=== PATIENT | male | born 1960 | race Caucasian/White ===

== ENCOUNTER 2023-05-27 18:22 | Inpatient (IN) | payer OTHER, MEDICAID, SELFPAY ==
[2023-05-27 18:30] VITALS: BP 117/74; PULSE 120; RESP 20; TEMP 37.4; O2SAT 96; BMI 22.2
--- NOTE | 2023-05-27 19:07 | ED.GENADULT ---
HPI - General Adult General Chief complaint: Abdominal Pain Stated complaint: drinking water cant keep down/ stomach pain/vomitt Time Seen by Provider: 05/27/23 19:07 Source: patient Mode of arrival: Ambulatory History of Present Illness HPI narrative: 62-year-old gentleman with a history of alcohol use disorder who presents complaining of right lower quadrant pain that has been worsening over the last number of days with persistent vomiting to the point he is unable to keep water down. He is significantly intoxicated so clearly alcohol has been able to stay down. His roommate called his son and his son brings him in for further evaluation. Patient is intoxicated/confused enough that he has little additional history to offer beyond the complaint of right lower quadrant pain. He reports that he has vomited he does not complain of diarrhea he denies fevers and chest pain. Related Data Allergies Allergy/AdvReac Type Severity Reaction Status Date / Time No Known Drug Allergies Allergy Verified 05/27/23 18:30 Review of Systems Review of Systems Narrative: Pertinent positive and negative findings as per HPI Patient History Medical History (Updated 05/27/23 @ 23:45 by Kassi Swenson MD) Alcohol use disorder Social History Smoking Status: Current every day smoker Smoking Status: Current every day smoker tobacco type: cigarettes alcohol intake frequency: 3 or more drinks per day Substance Use Type: does not use Exam Initial Vital Signs Initial Vital Signs: Vital Signs Temperature 99.4 F 05/27/23 18:30 Pulse Rate 120 H 05/27/23 18:30 Respiratory Rate 20 05/27/23 18:30 Blood Pressure 117/74 05/27/23 18:30 Pulse Oximetry 96 05/27/23 18:30 Oxygen Delivery Method Room Air 05/27/23 18:30 General: Chronically ill-appearing, disheveled, smells strongly of alcohol minimally cooperative HEENT: Moist mucous membranes Neck: No JVD, supple Respiratory: Lungs are clear to auscultation, no wheezing no rales no rhonchi. Full and symmetrical air movement Cardiac: Tachycardic but otherwise Regular rate and rhythm no murmurs no bruits Abdomen: Soft, despite his complaint of right lower quadrant tenderness there is no reproducible pain with palpation of his abdomen, good bowel tones, no flank pain Skin: Warm and dry, no rashes Neurologic: Grossly neurologically intact with no obvious asymmetries or abnormalities Extremities: No trauma, Psych: Intoxicated Course Orders Ordered: ED Orders 05/27/23 18:41 EKG-12 Lead Stat 05/27/23 19:00 ETOH [Ethanol (ETOH)] Stat 05/27/23 20:10 CT abdomen pelvis w con Stat 05/27/23 22:25 Urine Microscopic Stat Ondansetron HCl (Ondansetron 4 Mg Odt) 4 mg PO NOW PRN PRN Reason: Nausea And Vomiting Ondansetron HCl (Ondansetron 4 Mg/2 Ml Inj) 4 mg IV NOW PRN PRN Reason: Nausea And Vomiting Discontinued Medications Sodium Chloride (Normal Saline 0.9%) 1,000 mls @ 1,000 mls/hr IV BOLUS ONE Stop: 05/27/23 20:08 Last Infusion: 05/27/23 21:48 Dose: 0 mls/hr Documented By: Admin: 05/27/23 20:03 Dose: 1,000 mls/hr Documented By: CHIARA Thiamine HCl 100 mg/ Sodium (Chloride) 101 mls @ 404 mls/hr IV NOW ONE Stop: 05/27/23 20:11 Last Infusion: 05/27/23 21:20 Dose: 0 mls/hr Documented By: Admin: 05/27/23 20:57 Dose: 404 mls/hr Documented By: CHIARA Lorazepam (Lorazepam 2 Mg/Ml Inj) 4 mg IV NOW ONE Stop: 05/27/23 23:13 Last Admin: 05/27/23 23:30 Dose: 4 mg Documented By: RY Ondansetron HCl (Ondansetron 4 Mg/2 Ml Inj) 4 mg IV NOW ONE Stop: 05/27/23 19:10 Last Admin: 05/27/23 20:53 Dose: Not Given Documented By: CHIARA Vital Signs Vital signs: Vital Signs - 8 hr 05/27/23 18:30 05/27/23 20:09 05/27/23 21:41 Temperature 99.4 F 98.2 F Pulse Rate 120 H 101 H 99 H Respiratory Rate 20 20 18 Blood Pressure 117/74 116/69 112/79 Pulse Oximetry 96 97 98 Oxygen Delivery Method Room Air Room Air Room Air Medical Decision Making Lab Data 05/27/23 13:00 05/27/23 13:00 Labs: Lab Results 05/27/23 05/27/23 05/27/23 Range/Units 13:00 13:00 13:00 WBC 4.5 (4.5-11.0) X10^3/uL RBC 3.43 L (4.5-5.9) X10^6/uL Hgb 12.3 L (13.5-17.5) g/dL Hct 35.7 L (41-53) % MCV 104.0 H (80-100) fL MCH 36.0 H (26-34) PG MCHC 34.6 (30-36) % RDW 16.8 H (11.6-14.8) % Plt Count 125 L (150-400) X10^3/uL Neut % (Auto) 84.9 H (50-75) % Lymph % (Auto) 7.9 L (25-40) % [place] % (Auto) 6.6 (3-14) % Eos % (Auto) 0.1 L (2-4) % Baso % (Auto) 0.5 (0-2) % Neut # (Auto) 3800 (0930-8202) /uL Lymph # (Auto) 400 L (9000-6556) /uL [place] # (Auto) 300 (0-900) /uL Eos # (Auto) 0 (0-450) /uL Baso # (Auto) 0 (0-100) /uL Sodium 137 (137-145) mmol/L Potassium 2.9 L (3.4-5.1) mmol/L Chloride 92 L (98-107) mmol/L Carbon Dioxide 31 (22-32) mmol/L BUN 6 L (9-20) mg/dL Creatinine 0.58 L (0.66-1.25) mg/dL Estimated GFR > 60 (>60) mL/min BUN/Creatinine Ratio 10.3 (6-22) Glucose 143 H (80-110) mg/dL Calcium 8.9 (8.4-10.2) mg/dL Total Bilirubin 0.9 (0.2-1.3) mg/dL AST 55 (17-59) IU/L ALT 18 (<50) IU/L Alkaline Phosphatase 95 (38-126) U/L Troponin I < 0.012 (0.01-0.034) ng/mL Total Protein 7.8 (6.3-8.2) g/dL Albumin 3.8 (3.5-5.0) g/dL Globulin 4.0 (1.7-4.1) g/dL Albumin/Globulin Ratio 1.0 (1.0-2.8) Lipase 310 H (23-300) U/L Urine RBC (0-5/HPF) Urine WBC (0-5/HPF) Ur Squamous Epith Cells (0-5/HPF) Urine Bacteria (None) Hyaline Casts (None) Urine Mucus (Negative) Ur Culture Indicated? Ethyl Alcohol ( - 10) mg/dL 05/27/23 05/27/23 Range/Units 19:00 22:25 WBC (4.5-11.0) X10^3/uL RBC (4.5-5.9) X10^6/uL Hgb (13.5-17.5) g/dL Hct (41-53) % MCV (80-100) fL MCH (26-34) PG MCHC (30-36) % RDW (11.6-14.8) % Plt Count (150-400) X10^3/uL Neut % (Auto) (50-75) % Lymph % (Auto) (25-40) % [place] % (Auto) (3-14) % Eos % (Auto) (2-4) % Baso % (Auto) (0-2) % Neut # (Auto) (3638-5843) /uL Lymph # (Auto) (5624-1235) /uL [place] # (Auto) (0-900) /uL Eos # (Auto) (0-450) /uL Baso # (Auto) (0-100) /uL Sodium (137-145) mmol/L Potassium (3.4-5.1) mmol/L Chloride (98-107) mmol/L Carbon Dioxide (22-32) mmol/L BUN (9-20) mg/dL Creatinine (0.66-1.25) mg/dL Estimated GFR (>60) mL/min BUN/Creatinine Ratio (6-22) Glucose (80-110) mg/dL Calcium (8.4-10.2) mg/dL Total Bilirubin (0.2-1.3) mg/dL AST (17-59) IU/L ALT (<50) IU/L Alkaline Phosphatase (38-126) U/L Troponin I (0.01-0.034) ng/mL Total Protein (6.3-8.2) g/dL Albumin (3.5-5.0) g/dL Globulin (1.7-4.1) g/dL Albumin/Globulin Ratio (1.0-2.8) Lipase (23-300) U/L Urine RBC None seen (0-5/HPF) Urine WBC None seen (0-5/HPF) Ur Squamous Epith Cells 0-1 /hpf (0-5/HPF) Urine Bacteria None seen (None) Hyaline Casts 0-1/lpf (None) Urine Mucus 1+ H (Negative) Ur Culture Indicated? Cult not indicated Ethyl Alcohol 177 H ( - 10) mg/dL Urine Dip Bedside Urine Glucose Negative Bedside Urine Bilirubin - Negative Bedside Urine Ketone - Negative Urine Specific [place] 1.01 Bedside Urine Occult Blood - Negative Bedside Urine pH 6 Bedside Urine Protein +/- 15 Bedside Urine Urobilinogen +/- 1mg Bedside Urine Nitrite - Negative Bedside Urine Leukocytes - Negative Esterase Point of care testing: Urine Dip Bedside Urine Glucose Negative Bedside Urine Bilirubin - Negative Bedside Urine Ketone - Negative Urine Specific Jackson 1.01 Bedside Urine Occult Blood - Negative Bedside Urine pH 6 Bedside Urine Protein +/- 15 Bedside Urine Urobilinogen +/- 1mg Bedside Urine Nitrite - Negative Bedside Urine Leukocytes - Negative Esterase MDM Narrative Medical decision making narrative: CC: 2-4 days of right lower quadrant abdominal pain in the setting of chronic alcohol use disorder Complicating co-morbidities: History is difficult to obtain Data collected from: patient, son Social determinants of health that may influence the patients condition: Alcohol use disorder, minimal interaction with the medical system Medical records reviewed: Orthopedic and dermatologic notes from [facility] reviewed Differential considered: Appendicitis, diverticulitis, gallbladder disease, kidney stone, pyelonephritis, constipation, ascites, liver failure Exam documented above, pertinent findings include: Mild tachycardia, lungs are clear no significant tenderness to palpation of his abdomen but he does smell strongly of alcohol Lab Test results independently reviewed as above. Pertinent findings: CBC shows normal white blood cell count mild anemia at 12.3 and 35.7 with an elevated MCV at 104 platelets are slightly low at 125 Chemistries are notable for a potassium low at 2.9. LFTs are unremarkable Lipase is minimally elevated at 310 Troponin is undetectable Independently reviewed EKG sinus rhythm at a rate of 99, nonspecific ST-T wave changes, nonspecific fascicular block Imaging studies independently reviewed: CT scan of the abdomen demonstrates mild segmental wall thickening of the terminal ileum and the proximal ascending colon and it appears the appendix has already been removed. Most likely representing infectious or inflammatory enterocolitis. Treatments: Fluids, IV thiamine, nausea medicine and parenteral narcotics were given. IV potassium replacement, ativan for withdrawal symptoms Re-evaluations:11pm patient is visibly worse continues to actively vomit/dry heave. Clear alcohol withdrawal. At this time I believe hospitalization for his enterocolitis and acute alcohol withdrawal is going to be most appropriate. Patient is his son both agree to this. Will check his CIWA score and begin Ativan treatment Discussion: 62-year-old gentleman with alcohol use disorder increasing abdominal pain for the last 4 days has not been able to drink much water and likely has not been able to drink enough alcohol to avoid significant withdrawal symptoms either. Despite initial alcohol level at 177 he is showing significant withdrawal signs and continued vomiting. I believe hospitalization to help with hydration and pain control from his enterocolitis and treatment of his withdrawal symptoms as well as hypokalemia will be helpful. When asked if he is interested in stopping drinking at this time he states that he is not but he is interested in staying in the hospital until he is well left actually go home and eat and drink. Will contact our hospitalist service for admission. Case reviewed with Dr Mills. Discharge Plan Departure Patient Disposition: Admitted as Observation Clinical Impression: Enterocolitis, Hypokalemia Nausea & vomiting Qualifiers: Vomiting type: unspecified Qualified Code(s): R11.2 - Nausea with vomiting, unspecified Alcohol withdrawal Qualifiers: Complication of substance-induced condition: uncomplicated Qualified Code(s): F10.930 - Alcohol use, unspecified with withdrawal, uncomplicated Admit Date/Time: 05/27/23 23:45 Admit Provider: Rylan Mills
[2023-05-27 19:44] LABS: Add Manual Diff / Slide Review NO; Basophils Absolute Auto 0 /uL (0-100); Basophils Percent Auto 0.5 % (0-2); Eosinophils Absolute Auto 0 /uL (0-450); Eosinophils Percent Auto 0.1 % (2-4); Hematocrit 35.7 % (41-53); Hemoglobin 12.3 g/dL (13.5-17.5); Lymphocytes Absolute Auto 400 /uL (1100-4500); Lymphocytes Percent Auto 7.9 % (25-40); Mean Corpuscular HGB Conc 34.6 % (30-36); Monocytes Absolute Auto 300 /uL (0-900); Monocytes Percent Auto 6.6 % (3-14); Neutrophils Absolute Auto 3800 /uL (1500-7000); Neutrophils Percent Auto 84.9 % (50-75); Platelet Count 125 X10^3/uL (150-400); Red Blood Cell Count 3.43 X10^6/uL (4.5-5.9); Red Cell Distribution Width 16.8 % (11.6-14.8); White Blood Cell Count 4.5 X10^3/uL (4.5-11.0)
[2023-05-27 19:53] LABS: Alanine Aminotransferase 18 IU/L (<50); Albumin 3.8 g/dL (3.5-5.0); Alkaline Phosphatase 95 U/L (38-126); Aspartate Aminotransferase 55 IU/L (17-59); BUN Creatinine Ratio 10.3 (6-22); Bilirubin Total 0.9 mg/dL (0.2-1.3); Blood Urea Nitrogen 6 mg/dL (9-20); Calcium 8.9 mg/dL (8.4-10.2); Carbon Dioxide 31 mmol/L (22-32); Chloride 92 mmol/L (98-107); Estimated Glomerular Filt Rate > 60 mL/min (>60); Glucose 143 mg/dL (80-110); HEMOLYSIS < 15 (0-50); Lipase 310 U/L (23-300); Potassium 2.9 mmol/L (3.4-5.1); Sodium 137 mmol/L (137-145); Total Protein 7.8 g/dL (6.3-8.2)
[2023-05-27] MEDS: SODIUM CHLORIDE 0.9% 1,000 ML 1000 ML IV (20:03)
[2023-05-27 20:05] LABS: Troponin I < 0.012 ng/mL (0.01-0.034)
[2023-05-27 20:09] VITALS: BP 116/69; PULSE 101; RESP 20; TEMP 36.8; O2SAT 97
--- NOTE | 2023-05-27 20:10 | DI.CT.S_ITS ---
PROCEDURE: CT ABDOMEN PELVIS W CON INDICATIONS: RLQ abdominal pain TECHNIQUE: After the administration of IV contrast, axial sections were acquired from the lung bases to the pubic symphysis. Coronal and sagittal reformats were performed. For radiation dose reduction, the following was used: automated exposure control, adjustment of mA and/or kV according to patient size. COMPARISON: None. FINDINGS: Image quality: Excellent. Lung bases: There is mild dependent atelectasis. Heart: Heart is normal in size. There is a small hiatal hernia. ABDOMEN: Liver: There is diffuse hypoattenuation of the liver consistent with fatty infiltration. Gallbladder: Within normal limits without calcified gallstones. Biliary ducts: No biliary ductal dilatation. Pancreas: Unremarkable. Spleen: Normal in size. Adrenal Glands: No adrenal nodules. Kidneys and Ureters: No hydronephrosis. Stomach and Bowel: There is mild segmental wall thickening of the terminal ileum and the proximal ascending colon. The appendix is not discretely visualized and is likely surgically absent. Peritoneum: No abnormal intraperitoneal fluid. No free air. Ventral Wall: No hernia. Abdominal Nodes: No retroperitoneal or mesenteric adenopathy by size criteria. Vessels: Aorta and inferior vena cava are normal in size. PELVIS: Pelvic Organs: Unremarkable. Bladder: Unremarkable. Pelvic Nodes: No enlarged lymph nodes. Miscellaneous: No inguinal hernias are seen. Bones: Visualized osseous structures demonstrate no suspicious focal lesions. IMPRESSION: 1. Mild segmental wall thickening of the terminal ileum and the proximal ascending colon. The findings likely represent an infectious or inflammatory enterocolitis. 2. Hepatic steatosis. Dictated by: Andre Adrian M.D. on 05/27/2023 at 22:10 Approved by: Andre Adrian M.D. on 05/27/2023 at 22:14
[2023-05-27 20:41] LABS: Ethanol (ETOH) 177 mg/dL
[2023-05-27] MEDS: THIAMINE 100 MG in SODIUM CHLORIDE 0.9% 100 ML 404 MG IV (20:57)
[2023-05-27 21:41] VITALS: BP 112/79; PULSE 99; RESP 18; O2SAT 98
--- NOTE | 2023-05-27 22:33 | PC.NURSE ---
Pt appears intoxicated, denies any pain at this time.
[2023-05-27 23:02] LABS: Bacteria Urine None Seen; Hyaline Casts Urine 0-1/LPF; Mucus Urine 1+ (Negative); RBC Urine None Seen (0-5/HPF); Squamous Epithelial Cell Urine 0-1 /HPF (0-5/HPF); WBC Urine None Seen (0-5/HPF)
[2023-05-27 23:03] LABS: Culture Indicated Urine Cult Not Indicated
[2023-05-27] MEDS: LORazepam 2 MG/ML INJ 4 MG IV (23:30)
[2023-05-27 23:36] VITALS: BP 103/65; PULSE 105; RESP 30; O2SAT 92
[2023-05-27 23:56] VITALS: BMI 22.2
--- NOTE | 2023-05-27 23:57 | P.HP_ITS ---
History of Present Illness History of Present Illness Date Patient Seen: 05/28/23 Time Patient Seen: 01:00 Chief complaint: drinking water cant keep down/ stomach pain/vomitt Narrative: 62 y/o M presented to the ED with abd pain and n/v. no blood reported. started a few days ago mostly lower abd. denies diarrhea. denies cp or sob or cough or fever/chills. pt drinks daily and heavily and says he is not ready to stop drinking but seems needs help since he is having pain and n/v and some withdrawal symptoms. abs CT showed possible distal enteritis. [facility] Medical History (Updated 05/27/23 @ 23:45 by Kassi Swenson MD) Alcohol use disorder Social History Smoking Status: Current every day smoker Meds Home Medications and Allergies Allergies Allergy/AdvReac Type Severity Reaction Status Date / Time No Known Drug Allergies Allergy Verified 05/27/23 18:30 Review of Systems Review of Systems Narrative: all systems reviwed. negative except what was mentioned in hpi Exam Vital Signs (past 8 hours): - 05/27/23 18:30 05/27/23 20:09 05/27/23 21:41 Temperature 99.4 F 98.2 F Pulse Rate 120 H 101 H 99 H Respiratory Rate 20 20 18 Blood Pressure 117/74 116/69 112/79 Pulse Oximetry 96 97 98 Oxygen Delivery Method Room Air Room Air Room Air Oxygen Flow Rate 05/27/23 23:36 Temperature Pulse Rate 105 H Respiratory Rate 30 H Blood Pressure 103/65 Pulse Oximetry 92 Oxygen Delivery Method Nasal Cannula Oxygen Flow Rate 2 Oxygen Delivery Method Nasal Cannula Oxygen Flow Rate 2 Const Other: IN SOME distress due to pain and n/v and withdrawal last ciwa 11 Eyes General: appearance normal, both eyes and all related structures Resp Auscultation: clear to auscultation bilaterally Cardio Rate: regular rate Rhythm: regular rhythm GI Other: general tenderness with no rebound Neuro Other: alert and oriented times 3 , some tremors Objective Labs 05/27/23 13:00 05/27/23 13:00 Labs: Laboratory Results - last 24 hr 05/27/23 05/27/23 05/27/23 13:00 13:00 13:00 WBC 4.5 RBC 3.43 L Hgb 12.3 L Hct 35.7 L MCV 104.0 H MCH 36.0 H MCHC 34.6 RDW 16.8 H Plt Count 125 L Neut % (Auto) 84.9 H Lymph % (Auto) 7.9 L [place] % (Auto) 6.6 Eos % (Auto) 0.1 L Baso % (Auto) 0.5 Neut # (Auto) 3800 Lymph # (Auto) 400 L [place] # (Auto) 300 Eos # (Auto) 0 Baso # (Auto) 0 Sodium 137 Potassium 2.9 L Chloride 92 L Carbon Dioxide 31 BUN 6 L Creatinine 0.58 L Estimated GFR > 60 BUN/Creatinine Ratio 10.3 Glucose 143 H Calcium 8.9 Total Bilirubin 0.9 AST 55 ALT 18 Alkaline Phosphatase 95 Troponin I < 0.012 Total Protein 7.8 Albumin 3.8 Globulin 4.0 Albumin/Globulin Ratio 1.0 Lipase 310 H Urine RBC Urine WBC Ur Squamous Epith Cells Urine Bacteria Hyaline Casts Urine Mucus Ur Culture Indicated? Ethyl Alcohol 05/27/23 05/27/23 19:00 22:25 WBC RBC Hgb Hct MCV MCH MCHC RDW Plt Count Neut % (Auto) Lymph % (Auto) [place] % (Auto) Eos % (Auto) Baso % (Auto) Neut # (Auto) Lymph # (Auto) [place] # (Auto) Eos # (Auto) Baso # (Auto) Sodium Potassium Chloride Carbon Dioxide BUN Creatinine Estimated GFR BUN/Creatinine Ratio Glucose Calcium Total Bilirubin AST ALT Alkaline Phosphatase Troponin I Total Protein Albumin Globulin Albumin/Globulin Ratio Lipase Urine RBC None seen Urine WBC None seen Ur Squamous Epith Cells 0-1 /hpf Urine Bacteria None seen Hyaline Casts 0-1/lpf Urine Mucus 1+ H Ur Culture Indicated? Cult not indicated Ethyl Alcohol 177 H Assessment & Plan Assessment & Plan narrative: 62 y/o M # abd pain and n/v: probably due to alcohol use and withdrawal, less probability pancreatitis or enteritis: morphine and zofran prn, ivf, npo, zosyn, # alcohol withdrawal: mvi, thiamine and folate, Valium, Ativan prn, monitor closely, check mag, pt counseled but wants to continue # hypokalemia : replace and monitor, telemetry # tobacco use disorder: pt counseled. nicotine replacement prn
[2023-05-28] VITALS (49 sets, daily range): BP systolic 98–129; BP diastolic 56–80; PULSE 48–116; RESP 15–38; TEMP 36.5–38.4; O2SAT 91–98
[2023-05-28] MEDS: POTASSIUM CHLORIDE IN WATER 10 MEQ/100 ML PIGGYBACK 100 MEQ IV ×10 (00:50→16:48)
[2023-05-28] MEDS: SODIUM CHLORIDE 0.9% 1,000 ML 150 ML IV (00:51)
[2023-05-28] MEDS: PIPERACILLIN/TAZO 3.375 GM in SODIUM CHLORIDE 0.9% 100 ML IV ×2 (01:45→09:01)
[2023-05-28 04:14] LABS: MRSA (Nasal) PCR Not Detected (Not Detect)
[2023-05-28 05:29] LABS: Add Manual Diff / Slide Review NO; Basophils Absolute Auto 0 /uL (0-100); Basophils Percent Auto 0.5 % (0-2); Eosinophils Absolute Auto 0 /uL (0-450); Eosinophils Percent Auto 0.1 % (2-4); Hematocrit 31.1 % (41-53); Hemoglobin 10.7 g/dL (13.5-17.5); Lymphocytes Absolute Auto 500 /uL (1100-4500); Lymphocytes Percent Auto 16.8 % (25-40); Mean Corpuscular HGB Conc 34.4 % (30-36); Mean Corpuscular Hemoglobin 35.9 PG (26-34); Mean Corpuscular Volume 104.4 fL (80-100); Monocytes Absolute Auto 200 /uL (0-900); Monocytes Percent Auto 6.4 % (3-14); Neutrophils Absolute Auto 2400 /uL (1500-7000); Neutrophils Percent Auto 76.2 % (50-75); Platelet Count 86 X10^3/uL (150-400); Red Blood Cell Count 2.98 X10^6/uL (4.5-5.9); Red Cell Distribution Width 17.3 % (11.6-14.8); White Blood Cell Count 3.1 X10^3/uL (4.5-11.0)
--- NOTE | 2023-05-28 05:57 | PC.NURSE ---
patient came to floor somnolent and oriented to self only, unable to follow direction and safely take PO medication. Speech is garbled. Patient's son is at bed side and able to provide history. The Somnolence began after IV Ativan was given in the ED per patient's son. Son also disclosed July 03 2022 patient had witnessed seizure in hospital. Patients wallet sent home with son.
[2023-05-28 05:58] LABS: BUN Creatinine Ratio 5.8 (6-22); Blood Urea Nitrogen 3 mg/dL (9-20); Calcium 7.9 mg/dL (8.4-10.2); Carbon Dioxide 31 mmol/L (22-32); Chloride 97 mmol/L (98-107); Estimated Glomerular Filt Rate > 60 mL/min (>60); Glucose 91 mg/dL (80-110); HEMOLYSIS < 15 (0-50); Magnesium 1.1 mg/dL (1.6-2.3); Sodium 132 mmol/L (137-145)
[2023-05-28] MEDS: LORazepam 2 MG/ML INJ 1 MG IV (06:25)
[2023-05-28] MEDS: PHENobarbital 65 MG/ML VIAL 130 MG IV (10:22)
[2023-05-28] MEDS: MAGNESIUM SULFATE 4 GM/100 ML PIGGYBACK IV (10:28)
[2023-05-28] MEDS: dexmedeTOMIDine in 0.9 % NaCL 400 MCG/100 ML PLAST..BAG IV (11:02)
[2023-05-28] MEDS: NICOTINE 7 MG PATCH TOP (11:45)
--- NOTE | 2023-05-28 12:48 | PC.NURSE ---
Addendum entered by Graciela Maravilla R.N. 05/28/23 19:25: checked pt's BG prior to shift change due to being NPO: result 92 Addendum entered by Graciela Maravilla R.N. 05/28/23 13:44: Per pt and son, pt does not take any home medications. Updated medication reconciliation. In am, Pharmacist said that Mg/ K levels should be drawn 30 mins after infusing. Relayed this information to provider and provider was not wanting an afternoon redraw at this time. Relayed that pt unable to take PO meds due to safety and swallowing concerns. Provider not wanting to switch vitamins over to IV at this time. Original Note: In am, RN assessed pt and noticed pt increasingly agitated, anxious, pulling at lines, confused and mumbling words without meaning to RNs questions. RN's CIWA assessment was 11, and instead of giving ativan, RN raised concerns to provider given pt's history, current clinical status, and patient safety. RN spoke with provider about CIWA assessment, history of seizures r/t withdrawal and increasing agitation, low electrolyte values, and RN concern about pt safety with taking oral meds. Provider ordered a dose of phenobarbitol. RN administered, and after administration, RN observed an increase in agitation instead of decrease. Provider was notified and provider ordered a precedex infusion. Amidst these events, RN contacted pharmacy to report and follow up on low electrolyte values (Mg 1.1 and K 3.0 - even after ordered 40 mEq K-riders given). Due to RN's concerns about IV access, provider placed order for midline, DEFECT CUTTER called DI RN placed midline. Once precedex gtt was started, pt's agitation and CIWA score decreased. Currently resting comfortably with VSS, continuous telemetry and respiratory monitoring, bed alarm on with frequent RN monitoring.
--- NOTE | 2023-05-28 13:37 | P.HP_ITS ---
History of Present Illness History of Present Illness Date Patient Seen: 05/28/23 Time Patient Seen: 11:00 Chief complaint: drinking water cant keep down/ stomach pain/vomitt Narrative: History is taken largely from the overnight provider, as patient's mental status has decreased and unable to obtain reliable history. Per Dr. Mills, 62 y/o M presented to the ED with abd pain and n/v. no blood reported. started a few days ago mostly lower abd. denies diarrhea. denies cp or sob or cough or fever/chills. pt drinks daily and heavily and says he is not ready to stop drinking but seems needs help since he is having pain and n/v and some withdrawal symptoms. abs CT showed possible distal enteritis. This morning, the patient became more confused and agitated. Attempted phenobarb without success and now improved on precedex. Changed to ICU status. [facility] Medical History Alcohol use disorder Social History household members: other Smoking Status: Current every day smoker alcohol intake: current Meds Home Medications and Allergies Allergies Allergy/AdvReac Type Severity Reaction Status Date / Time No Known Drug Allergies Allergy Verified 05/27/23 18:30 Review of Systems Review of Systems Narrative: unable to obtain Exam Vital Signs (past 8 hours): - 05/28/23 06:00 05/28/23 06:57 05/28/23 07:00 Temperature 99.9 F H Pulse Rate 84 Respiratory Rate 26 H Blood Pressure 116/78 Pulse Oximetry Oxygen Delivery Method Room Air 05/28/23 10:00 05/28/23 06:00 05/28/23 06:30 Temperature Pulse Rate 111 H 84 Respiratory Rate 23 38 H 29 H Blood Pressure Pulse Oximetry 93 92 Oxygen Delivery Method 05/28/23 07:00 05/28/23 07:30 05/28/23 08:00 Temperature Pulse Rate 84 69 70 Respiratory Rate 27 H 23 23 Blood Pressure Pulse Oximetry 94 97 96 Oxygen Delivery Method 05/28/23 08:30 05/28/23 09:00 05/28/23 09:30 Temperature Pulse Rate 64 64 65 Respiratory Rate 23 24 21 Blood Pressure Pulse Oximetry 96 98 98 Oxygen Delivery Method 05/28/23 09:45 05/28/23 09:45 05/28/23 10:00 Temperature Pulse Rate 74 65 Respiratory Rate 24 21 Blood Pressure 123/79 Pulse Oximetry 96 96 Oxygen Delivery Method 05/28/23 10:30 Temperature Pulse Rate 59 L Respiratory Rate 23 Blood Pressure Pulse Oximetry Oxygen Delivery Method Oxygen Delivery Method Room Air Oxygen Flow Rate 2 Objective Labs 05/28/23 04:40 05/28/23 04:40 Labs: Laboratory Results - last 24 hr 05/27/23 05/27/23 05/27/23 13:00 13:00 13:00 WBC 4.5 RBC 3.43 L Hgb 12.3 L Hct 35.7 L MCV 104.0 H MCH 36.0 H MCHC 34.6 RDW 16.8 H Plt Count 125 L Neut % (Auto) 84.9 H Lymph % (Auto) 7.9 L [place] % (Auto) 6.6 Eos % (Auto) 0.1 L Baso % (Auto) 0.5 Neut # (Auto) 3800 Lymph # (Auto) 400 L [place] # (Auto) 300 Eos # (Auto) 0 Baso # (Auto) 0 Sodium 137 Potassium 2.9 L Chloride 92 L Carbon Dioxide 31 BUN 6 L Creatinine 0.58 L Estimated GFR > 60 BUN/Creatinine Ratio 10.3 Glucose 143 H Calcium 8.9 Magnesium Total Bilirubin 0.9 AST 55 ALT 18 Alkaline Phosphatase 95 Troponin I < 0.012 Total Protein 7.8 Albumin 3.8 Globulin 4.0 Albumin/Globulin Ratio 1.0 Lipase 310 H Urine RBC Urine WBC Ur Squamous Epith Cells Urine Bacteria Hyaline Casts Urine Mucus Ur Culture Indicated? Nasal Screen MRSA (PCR) Ethyl Alcohol 05/27/23 05/27/23 05/28/23 19:00 22:25 00:58 WBC RBC Hgb Hct MCV MCH MCHC RDW Plt Count Neut % (Auto) Lymph % (Auto) [place] % (Auto) Eos % (Auto) Baso % (Auto) Neut # (Auto) Lymph # (Auto) [place] # (Auto) Eos # (Auto) Baso # (Auto) Sodium Potassium Chloride Carbon Dioxide BUN Creatinine Estimated GFR BUN/Creatinine Ratio Glucose Calcium Magnesium Total Bilirubin AST ALT Alkaline Phosphatase Troponin I Total Protein Albumin Globulin Albumin/Globulin Ratio Lipase Urine RBC None seen Urine WBC None seen Ur Squamous Epith Cells 0-1 /hpf Urine Bacteria None seen Hyaline Casts 0-1/lpf Urine Mucus 1+ H Ur Culture Indicated? Cult not indicated Nasal Screen MRSA (PCR) Not detected Ethyl Alcohol 177 H 05/28/23 05/28/23 05/28/23 04:40 04:40 04:40 WBC 3.1 L RBC 2.98 L Hgb 10.7 L Hct 31.1 L MCV 104.4 H MCH 35.9 H MCHC 34.4 RDW 17.3 H Plt Count 86 L Neut % (Auto) 76.2 H Lymph % (Auto) 16.8 L [place] % (Auto) 6.4 Eos % (Auto) 0.1 L Baso % (Auto) 0.5 Neut # (Auto) 2400 Lymph # (Auto) 500 L [place] # (Auto) 200 Eos # (Auto) 0 Baso # (Auto) 0 Sodium 132 L Potassium 3.0 L Chloride 97 L Carbon Dioxide 31 BUN 3 L Creatinine 0.52 L Estimated GFR > 60 BUN/Creatinine Ratio 5.8 L Glucose 91 Calcium 7.9 L Magnesium 1.1 L Total Bilirubin AST ALT Alkaline Phosphatase Troponin I Total Protein Albumin Globulin Albumin/Globulin Ratio Lipase Urine RBC Urine WBC Ur Squamous Epith Cells Urine Bacteria Hyaline Casts Urine Mucus Ur Culture Indicated? Nasal Screen MRSA (PCR) Ethyl Alcohol Assessment & Plan Assessment & Plan narrative: 62 y/o M admitted for alcohol withdrawal, now on precedex infusion given worsening delirium. # abd pain and n/v: probably due to alcohol use and withdrawal, less probability pancreatitis or enteritis: - suspect presentation was more likely related to EtOH use. - continue supportive care, will stop antibiotics started overnight empirically. - if diarrhea resumes check GI panel. # alcohol withdrawal with derlirium - continue MVI, Folate, thiamine. Became more agitated and confused overnight HD#1. Now on precedex infusion with improvement. - start librium when swallowing improved, titrate precedex for now to RAAS of - 1. - consider speech evaluation # hypokalemia : - replace and monitor, telemetry - replace Mg as noted below. #hypomagnesemia - continue to follow and replace - Mg 1.1 this morning. # tobacco use disorder. nicotine replacement prn #pancytopenia - suspect due to EtOH use. continue to follow. Code: Full, surrogate is listed as his son. DVT: hold for now given thrombocytopenia. I have utilized all available immediate resources to obtain, update, or review the patient's current medications. Dispo: ICU on precedex infusion. I spent 35 minutes providing critical care management this patient. This excludes time spent in performing separately billed procedures.
[2023-05-28] MEDS: SODIUM CHLORIDE 0.9% 1,000 ML 100 ML IV (15:23)
--- NOTE | 2023-05-28 15:24 | CM.DANOTE ---
Initial DCP Assessment Note Pt is a 62 yo male, resident of [place], presents intoxicated, BAL of 177, complaining of N/V/D PCP: Kari Kaufman Payer: Sarkis/MATT Reviewed chart. According to RN, patient had increased agitation today and so is heavily sedated currently. Met bedside with son Jian. Introduced self and role. Patient currently lives w/a friend in his manufactured home in [place] Son lives not far from his dad although has distanced himself recently r/t patient's heavy drinking and being busy with his job and life (jian has 4 children). According to Jian, patient has been drinking all of jian's life, likely most of his own young and adult life. Last period of sobriety was a year ago, for two weeks, after patient was in the hospital after an alcohol related seizure on jian's birthday. Patient drinks bourbon twenty four seven according to jian and smokes 2 packs of cigarettes daily. Jian wishes he could keep his dad sober, supported son and reinforced that patient will not make sustainable change until he is ready, jian agreed. Plan: SW team will plan to follow closely as medical POC unfolds and can return to complete an DEBRA assessment with patient if/when he is able to participate Home w/roommate anticipated RICHARD Barrientos Discharge Planning/Care Management CM Discharge Assessment Start: 05/28/23 15:18 Freq: Status: Active Protocol: Document 05/28/23 15:18 SERA (Rec: 05/28/23 15:23 SERA [email or web address]) Discharge Planning Assessment Assigned County Coroner RICHARD Helton DPOA/Assigned Designee Name richard Moncada Contact Information [phone] Advance Directives? No Advance Directives on File No History Provided By Family Member Prior Living Arrangements House Comment roommate Household Members other Comment Did not assess transportation needs today Independent with ADL's Yes Is patient alert and oriented? Yes Comment TBD Barriers to Discharge No Comment Expect patient will return home when through withdrawal and medically stable Discharge Plan Home Transportation Arrangement Family or friends Referrals Initiated None needed Additional Comment Following closely. Will plan to complete an DEBRA assessment and further assessment of need if/when patient can participate Whiteboard Updated in Patient Room with Yes name and ext. # of County Coroner Comment Updated for patient and son Jian
[2023-05-29] VITALS (27 sets, daily range): BP systolic 97–153; BP diastolic 50–96; PULSE 45–101; RESP 11–31; TEMP 35.9–37; O2SAT 93–99
[2023-05-29 04:59] LABS: Add Manual Diff / Slide Review NO; Basophils Absolute Auto 0 /uL (0-100); Basophils Percent Auto 0.5 % (0-2); Eosinophils Absolute Auto 0 /uL (0-450); Eosinophils Percent Auto 0.4 % (2-4); Hematocrit 31.1 % (41-53); Hemoglobin 10.7 g/dL (13.5-17.5); Lymphocytes Absolute Auto 900 /uL (1100-4500); Lymphocytes Percent Auto 22.4 % (25-40); Mean Corpuscular HGB Conc 34.5 % (30-36); Mean Corpuscular Hemoglobin 36.5 PG (26-34); Mean Corpuscular Volume 105.6 fL (80-100); Monocytes Absolute Auto 200 /uL (0-900); Monocytes Percent Auto 6.1 % (3-14); Neutrophils Absolute Auto 2800 /uL (1500-7000); Neutrophils Percent Auto 70.6 % (50-75); Platelet Count 88 X10^3/uL (150-400); Red Blood Cell Count 2.94 X10^6/uL (4.5-5.9); Red Cell Distribution Width 16.7 % (11.6-14.8); White Blood Cell Count 3.9 X10^3/uL (4.5-11.0)
[2023-05-29 05:16] LABS: Alanine Aminotransferase 14 IU/L (<50); Albumin 2.6 g/dL (3.5-5.0); Albumin Globulin Ratio 0.9 (1.0-2.8); Alkaline Phosphatase 78 U/L (38-126); Aspartate Aminotransferase 38 IU/L (17-59); Bilirubin Total 0.6 mg/dL (0.2-1.3); Bilirubin Unconjugated 0.4 mg/dL (0.0-1.1); Globulin 2.8 g/dL (1.7-4.1); HEMOLYSIS < 15 (0-50); Total Protein 5.4 g/dL (6.3-8.2)
[2023-05-29 05:17] LABS: Magnesium 1.9 mg/dL (1.6-2.3)
[2023-05-29 05:20] LABS: BUN Creatinine Ratio 9.4 (6-22); Blood Urea Nitrogen 5 mg/dL (9-20); Calcium 7.4 mg/dL (8.4-10.2); Carbon Dioxide 22 mmol/L (22-32); Chloride 100 mmol/L (98-107); Estimated Glomerular Filt Rate > 60 mL/min (>60); Glucose 73 mg/dL (80-110); HEMOLYSIS < 15 (0-50); Potassium 3.2 mmol/L (3.4-5.1); Sodium 132 mmol/L (137-145)
[2023-05-29] MEDS: THIAMINE 100 MG TABLET PO (09:36)
[2023-05-29] MEDS: FOLIC ACID 1 MG TABLET PO (09:37)
[2023-05-29] MEDS: FAMOTIDINE 20 MG TABLET PO (09:37)
[2023-05-29] MEDS: MULTIVITAMIN 1 TABLET 1 TAB PO (09:37)
[2023-05-29] MEDS: NICOTINE 7 MG PATCH TOP (09:37)
[2023-05-29] MEDS: chlordiazePOXIDE 25 MG CAPSULE PO ×2 (09:37→14:07)
[2023-05-29] MEDS: dexmedeTOMIDine in 0.9 % NaCL 400 MCG/100 ML PLAST..BAG IV (09:38)
[2023-05-29] MEDS: POTASSIUM CHLORIDE 20 MEQ TAB 40 MEQ PO (10:40)
--- NOTE | 2023-05-29 13:34 | PM.PN.1 ---
Subjective Subjective Interval history: 62 M admitted for alcohol withdrawal with DTs. Remains on precedex infusion today, though his mentation is much improved. He states last drink was 3 days ago. He is not able to tell me the year, but is oriented to name and city. He denies chest pain, abdominal pain, shortness of breath, nausea, or vomiting. He is now swallowing and eating meals. Exam Vital Signs (past 8 hours): - 05/29/23 06:00 05/29/23 06:00 05/29/23 07:00 Temperature Pulse Rate 51 L Respiratory Rate 19 Blood Pressure 151/89 H 149/90 H Pulse Oximetry 95 Oxygen Flow Rate 0 05/29/23 07:00 05/29/23 08:00 05/29/23 08:00 Temperature 97.4 F L Pulse Rate 51 L 53 L Respiratory Rate 21 16 Blood Pressure 136/82 Pulse Oximetry 96 94 Oxygen Flow Rate 05/29/23 09:00 05/29/23 09:00 05/29/23 10:00 Temperature Pulse Rate 49 L 59 L Respiratory Rate 19 23 Blood Pressure 140/78 Pulse Oximetry 95 96 Oxygen Flow Rate 05/29/23 10:01 05/29/23 10:01 05/29/23 11:00 Temperature Pulse Rate 77 Respiratory Rate 26 H Blood Pressure 128/89 150/90 H Pulse Oximetry 95 Oxygen Flow Rate 05/29/23 11:00 05/29/23 12:00 05/29/23 12:00 Temperature 97.7 F Pulse Rate 68 78 Respiratory Rate 26 H 23 Blood Pressure 97/50 L Pulse Oximetry 96 96 Oxygen Flow Rate 05/29/23 12:02 05/29/23 12:02 05/29/23 13:00 Temperature 97.6 F Pulse Rate 82 Respiratory Rate 21 Blood Pressure 99/75 108/78 Pulse Oximetry 95 Oxygen Flow Rate 05/29/23 13:00 Temperature Pulse Rate 86 Respiratory Rate 31 H Blood Pressure Pulse Oximetry 93 Oxygen Flow Rate Oxygen Delivery Method Room Air Oxygen Flow Rate 0 Narrative Exam Narrative: General:?Chronically ill appearing male, appears older than stated age, in no acute distress. HEENT:? Normocephalic, atraumatic, extraocular muscles intact, oral pharynx is clear and mucous membranes are moist. Neck: supple and symmetric, trachea is midline, no cervical adenopathy. Chest:? Normal AP diameter and contour without kyphoscoliosis, no tachypnea, equal chest rise bilaterally. Lungs:? CTA b/l no wheezing rhonchi or rales. Cardio:?RRR no m/r/g. Abdomen: S NT ND. Musculoskeletal:? Muscle strength and tone are equal within normal limits, no deformity. Extremities: No edema or joint effusions. No cyanosis or clubbing. Skin:? Pale,? Warm to touch,dry and intact without rashes, ulcerations or petechiae.? Neuro:? Alert and orientated to name and city, not year. sensation to touch intact in all extremities, no gross deficits noted of cranial nerves. Objective Labs 05/29/23 04:45 05/29/23 04:45 Labs: Laboratory Results - last 24 hr 05/29/23 05/29/23 05/29/23 04:45 04:45 04:45 WBC 3.9 L RBC 2.94 L Hgb 10.7 L Hct 31.1 L MCV 105.6 H MCH 36.5 H MCHC 34.5 RDW 16.7 H Plt Count 88 L Neut % (Auto) 70.6 Lymph % (Auto) 22.[address] [place] % (Auto) 6.1 Eos % (Auto) 0.4 L Baso % (Auto) 0.5 Neut # (Auto) 2800 Lymph # (Auto) 900 [address] [place] # (Auto) 200 Eos # (Auto) 0 Baso # (Auto) 0 Sodium 132 L Potassium 3.2 L Chloride 100 Carbon Dioxide 22 BUN 5 L Creatinine 0.53 L Estimated GFR > 60 BUN/Creatinine Ratio 9.4 Glucose 73 L Calcium 7.4 L Magnesium 1.9 Total Bilirubin Conjugated Bilirubin Unconjugated Bilirubin AST ALT Alkaline Phosphatase Total Protein Albumin Globulin Albumin/Globulin Ratio 05/29/23 04:45 WBC RBC Hgb Hct MCV MCH MCHC RDW Plt Count Neut % (Auto) Lymph % (Auto) [place] % (Auto) Eos % (Auto) Baso % (Auto) Neut # (Auto) Lymph # (Auto) [place] # (Auto) Eos # (Auto) Baso # (Auto) Sodium Potassium Chloride Carbon Dioxide BUN Creatinine Estimated GFR BUN/Creatinine Ratio Glucose Calcium Magnesium Total Bilirubin 0.6 Conjugated Bilirubin 0.0 Unconjugated Bilirubin 0.4 AST 38 ALT 14 Alkaline Phosphatase 78 Total Protein 5.4 L Albumin 2.6 L Globulin 2.8 Albumin/Globulin Ratio 0.9 L [facility] Medical History Alcohol use disorder Social History household members: other Smoking Status: Current every day smoker alcohol intake: current Assessment & Plan Assessment & Plan narrative: 62 y/o M admitted for alcohol withdrawal, transferred to ICU for DTs requiring precedex infusion. # abd pain and n/v: probably due to alcohol use and withdrawal, less probability pancreatitis or enteritis: Resolved - suspect presentation was more likely related to EtOH use. - continue supportive care, stopoed antibiotics started overnight empirically. - if diarrhea resumes check GI panel. # alcohol withdrawal with derlirium - continue MVI, Folate, thiamine. Became more agitated and confused overnight HD#1. He is now oriented to name and city, much improved. Baseline mentation not known. Now on precedex infusion with improvement, may be able to weaned off today. - started librium 25 mg TID. Try to titrate off precedex if able. - overnight fever felt to be related to precedex as he has no infectious signs or symptoms. # hypokalemia : - replace and monitor, telemetry - replace Mg as noted below. #hypomagnesemia - continue to follow and replace - Mg 1.1 now up to 1.9 today. # tobacco use disorder. nicotine replacement prn #pancytopenia - suspect due to EtOH use. continue to follow. Code: Full, surrogate is listed as his son. DVT: hold for now given thrombocytopenia. I have utilized all available immediate resources to obtain, update, or review the patient's current medications. Dispo: ICU on precedex infusion. Can downgrade to regular floor should he remain off precedex for a few hours. Consider PT/OT tomorrow for discharge recommendations if off precedex. I spent 30 minutes providing critical care management this patient. This excludes time spent in performing separately billed procedures.
[2023-05-29] MEDS: LORazepam 2 MG/ML INJ IV (14:47)
--- NOTE | 2023-05-29 17:18 | PC.NURSE ---
Day shift: Pt sedated but rousable at start of shift. Pt A&O to self, situation, and year, but thought he was in a hospital in [place]. Pt up to BSC with 2 PA with gait belt and FWW. Able to follow directions when up to BSC. Pt back to bed, awake and alert to self, situation, and year when adult son visited. Pt asked, Does that pill cause you to like see stuff? This RN asked for clarification. Pt described symptoms of hallucinations. See CIWA score. See EMAR. Pt picking at IV, tugging on tubing, attempting to exit bed, eyes closed. Pt not following direction. PCT and this RN assisted pt in using urinal, pt unable to void. Attempted several times, pt reports inability to void. Bladder scan showed 590mL. Provider notified. Orders received. Straight cath performed, 550mL and unmeasured incontinent void after withdrawal of catheter. Care ongoing. Will continue to monitor.
[2023-05-29] MEDS: dexmedeTOMIDine in 0.9 % NaCL 400 MCG/100 ML PLAST..BAG 23.813 MCG IV ×2 (18:03→22:30)
[2023-05-30] VITALS (39 sets, daily range): BP systolic 89–127; BP diastolic 57–94; PULSE 43–176; RESP 13–33; TEMP 36–36.7; O2SAT 86–100
[2023-05-30] MEDS: LORazepam 2 MG/ML INJ IV ×2 (01:03→05:55)
--- NOTE | 2023-05-30 01:19 | PC.NURSE ---
This DUCT LAYER HELPER was passing by patients room and patient was kneeling on the side of the bed. This DUCT LAYER HELPER went in to the room along with KATHRIN Liang and KATHRIN Harvey. KATHRIN Mckeon came in the room. Patient became very agitated and combative. Patient was medicated by RN and settled back in bed. Patient now appears to be resting.
[2023-05-30] MEDS: dexmedeTOMIDine in 0.9 % NaCL 400 MCG/100 ML PLAST..BAG 19.05 MCG IV (03:02)
[2023-05-30 05:25] LABS: Add Manual Diff / Slide Review NO; Basophils Absolute Auto 0 /uL (0-100); Basophils Percent Auto 0.2 % (0-2); Eosinophils Absolute Auto 0 /uL (0-450); Eosinophils Percent Auto 0.7 % (2-4); Hematocrit 35.8 % (41-53); Hemoglobin 12.3 g/dL (13.5-17.5); Lymphocytes Absolute Auto 1100 /uL (1100-4500); Lymphocytes Percent Auto 23.7 % (25-40); Mean Corpuscular HGB Conc 34.3 % (30-36); Mean Corpuscular Hemoglobin 36.3 PG (26-34); Mean Corpuscular Volume 105.6 fL (80-100); Monocytes Absolute Auto 300 /uL (0-900); Monocytes Percent Auto 6.4 % (3-14); Neutrophils Absolute Auto 3300 /uL (1500-7000); Platelet Count 96 X10^3/uL (150-400); Red Blood Cell Count 3.39 X10^6/uL (4.5-5.9); Red Cell Distribution Width 16.5 % (11.6-14.8); White Blood Cell Count 4.8 X10^3/uL (4.5-11.0)
[2023-05-30 05:40] LABS: BUN Creatinine Ratio 13.6 (6-22); Blood Urea Nitrogen 6 mg/dL (9-20); Calcium 7.9 mg/dL (8.4-10.2); Carbon Dioxide 20 mmol/L (22-32); Chloride 104 mmol/L (98-107); Estimated Glomerular Filt Rate > 60 mL/min (>60); Glucose 121 mg/dL (80-110); HEMOLYSIS < 15 (0-50); Potassium 3.8 mmol/L (3.4-5.1); Sodium 136 mmol/L (137-145)
[2023-05-30 09:42] LABS: Magnesium 1.9 mg/dL (1.6-2.3)
[2023-05-30] MEDS: NICOTINE 7 MG PATCH TOP (10:14)
[2023-05-30] MEDS: dexmedeTOMIDine in 0.9 % NaCL 400 MCG/100 ML PLAST..BAG 6.3 MCG IV (10:31)
[2023-05-30] MEDS: NICOTINE 21 MG PATCH TOP (10:37)
[2023-05-30] MEDS: THIAMINE 500 MG in SODIUM CHLORIDE 0.9% 100 ML 420 MG IV ×3 (11:15→21:14)
[2023-05-30 11:49] LABS: Lipase 1495 U/L (23-300)
--- NOTE | 2023-05-30 12:35 | P.TELICUCN_ITS ---
History of Present Illness Consult details IF CAMERA ACTIVATED, patient seen via real-time interactive audiovisual communication: Camera activated Chief complaint: drinking water cant keep down/ stomach pain/vomitt Consent obtained for tele-information security care: Yes Patient Location: ICU Provider location (State): [place] Other participants/roles: hospitalist, RN Narrative: HPI: 62 yo Man with PMH of heavy alcohol use presented 05/27/23 with history of few days of lower abdominal pain and n/v. CT of abd showed possible distal deterocolitis. Pt. denied diarrhea. Pt. showed signs of alcohol withdrawal and was given PHenobarb. He did not improve adequately and he was startedon Dex drip and improved. He was then started on librium and ativan with the hope of weaning of Dex drip but he became more confused so benzos were stopped. Today when hospitalist rounded on patient, patient was on Dex drip at 1.5 mcg/kg/hr and he was unresponsive even to sternal rub. After Dex drip was turned off patient woke up and was very agitated and combative per report. Dex drip restartred at 0.4 mcg/kg/hr. I was asked by hospitalist to consult on patient to help manage agitation. Vitals reviewed (BP wnl, HR darien when calm, no fever). Labs reviewed, no leukocytosis. Lipase was 310 on admission 05/27/23 so repeated it now and it is 1495. LFts were normal as off yesterday. ROS: unable to obtain from patient at this time [facility] Medical History Alcohol use disorder Social History household members: other Smoking Status: Current every day smoker alcohol intake: current Current Medications Current Medications Medications: Home Medications No Known Home Medications 05/28/23 [History Confirmed 05/28/23] Visit Medications (administered) Generic Name Dose Route Start Last Admin Trade Name Freq PRN Reason Stop Dose Admin Famotidine 20 mg 05/28/23 09:00 05/30/23 10:25 Famotidine 20 Mg Tablet PO Not Given BID [facility] Folic Acid 1 mg 05/28/23 09:00 05/30/23 10:27 Folic Acid 1 Mg Tablet PO Not Given DAILY [facility] Heparin Sodium (Porcine) 50 unit 05/28/23 21:00 05/30/23 10:27 Heparin Flush (Cl/Picc/Mid-Line) 50 Unit/5 Ml Syringe IV Not Given BID MIRANDA dexmedeTOMIDine in 0.9 % NaCL 400 mcg in 100 mls @ 3.175 mls/hr 05/28/23 10:45 05/30/23 10:31 Precedex IV 0.4 mcg/kg/hr TITRATE MIRANDA 6.3 mls/hr Administration Protocol 0.2 MCG/KG/HR Thiamine HCl 500 mg/ Sodium 105 mls @ 420 mls/hr 05/30/23 09:45 05/30/23 11:15 Chloride IV 05/31/23 21:14 420 mls/hr TID MIRANDA Administration Lorazepam 0 mg 05/28/23 08:23 05/30/23 05:55 Lorazepam 2 Mg/Ml Inj IV 1 mg CIWAPRN PRN Administration Alcohol Withdrawal Protocol Multivitamins 1 tab 05/28/23 09:00 05/30/23 10:29 Multivitamin 1 Tablet PO Not Given DAILY MIRANDA Nicotine 21 mg 05/30/23 10:30 05/30/23 10:37 Nicotine 21 Mg Patch TOP 21 mg DAILY MIRANDA Administration Thiamine HCl 100 mg 05/28/23 09:00 05/30/23 10:29 Thiamine 100 Mg Tablet PO Not Given DAILY MIRANDA Exam Vital Signs (past 8 hours): - 05/30/23 05:00 05/30/23 05:00 05/30/23 06:00 Temperature Pulse Rate 49 L 46 L Respiratory Rate 21 20 Blood Pressure 120/87 Pulse Oximetry 99 99 Oxygen Delivery Method Oxygen Flow Rate 0 05/30/23 06:01 05/30/23 06:01 05/30/23 06:26 Temperature Pulse Rate 47 L 43 L Respiratory Rate 18 20 Blood Pressure 127/88 127/88 Pulse Oximetry 99 Oxygen Delivery Method Oxygen Flow Rate 0 05/30/23 07:00 05/30/23 07:00 05/30/23 07:00 Temperature 96.9 F L Pulse Rate 50 L Respiratory Rate 15 Blood Pressure 116/78 Pulse Oximetry 98 Oxygen Delivery Method Oxygen Flow Rate 05/30/23 08:00 05/30/23 08:00 05/30/23 09:00 Temperature 96.9 F L Pulse Rate 46 L Respiratory Rate 20 Blood Pressure 115/74 119/82 Pulse Oximetry 100 Oxygen Delivery Method Oxygen Flow Rate 05/30/23 09:00 05/30/23 08:00 05/30/23 10:00 Temperature Pulse Rate 49 L Respiratory Rate 20 Blood Pressure 112/78 Pulse Oximetry 99 Oxygen Delivery Method Room Air Oxygen Flow Rate 05/30/23 10:00 05/30/23 11:00 Temperature Pulse Rate 51 L 99 H Respiratory Rate 23 26 H Blood Pressure Pulse Oximetry 98 100 Oxygen Delivery Method Oxygen Flow Rate Oxygen Delivery Method Room Air Oxygen Flow Rate 0 Narrative Exam Narrative: Seen patient over 2 [employer]voice[employer]aring audiovisual system. He appears calm with eyes closed. Nurse reports that he will awaken to voice but is confused Objective Labs 05/30/23 04:40 05/30/23 04:40 Labs: Laboratory Results - last 24 hr 05/30/23 05/30/23 05/30/23 04:40 04:40 04:40 WBC 4.8 RBC 3.39 L Hgb 12.3 L Hct 35.8 L MCV 105.6 H MCH 36.3 H MCHC 34.3 RDW 16.5 H Plt Count 96 L Neut % (Auto) 69.0 Lymph % (Auto) 23.7 L [place] % (Auto) 6.4 Eos % (Auto) 0.7 L Baso % (Auto) 0.2 Neut # (Auto) 3300 Lymph # (Auto) 1100 [place] # (Auto) 300 Eos # (Auto) 0 Baso # (Auto) 0 Sodium 136 L Potassium 3.8 Chloride 104 Carbon Dioxide 20 L BUN 6 L Creatinine 0.44 L Estimated GFR > 60 BUN/Creatinine Ratio 13.6 Glucose 121 H Calcium 7.9 L Magnesium 1.9 Lipase 05/30/23 04:40 WBC RBC Hgb Hct MCV MCH MCHC RDW Plt Count Neut % (Auto) Lymph % (Auto) [place] % (Auto) Eos % (Auto) Baso % (Auto) Neut # (Auto) Lymph # (Auto) [place] # (Auto) Eos # (Auto) Baso # (Auto) Sodium Potassium Chloride Carbon Dioxide BUN Creatinine Estimated GFR BUN/Creatinine Ratio Glucose Calcium Magnesium Lipase 1495 H D Assessment & Plan Assessment & Plan narrative: Assessment Delirium-related to acohol withdrawal with perhaps superimposed ICU delirium Alcohol [place] Acute pancreatitis-probably ETOH related thrombocytopenia-probably ETOH related Discussion: difficult to tell how much of patient's agitated delirium at this point is alcohol withdrawal related vs ICU delirium. Plan FLUTE GRINDER: -Titrate Dex drip as need to keep patient calm but still responsive -thiamine and folate -since patient seemed to have become more confused since benzos given agree with holding benzos -unable to give antipsychotic for ICU delirium given QTC is > 500 -if agitation gets to point where it cannot be adequately controlled with high dose Dex drip, will consider another dose of phenobarb CV: BP and HR currently adequate Pulm: check ABG to rule out CO2 retention as a contributor of AMS ID: currently no evidence of acute infection GI:pancreatitis probably ETOH related. CT of abd shows no evidence of gallstone obstruction. Will check TG. - NPO -monitor Lipase, recheck LFTs Heme: Platelets are 80-90s but stable. -daily CBC FEN/Renal: start D5 LR at 84 cc/hr now that patient is nPO -replace electrolytes as needed PPX: platelets are on low side but they are stable and patient's DVT risk is moderate to high so will stat SQ heparin CCT: 60 min
[2023-05-30 13:01] LABS: Triglycerides 116 mg/dL (35-150)
[2023-05-30 13:02] LABS: Alanine Aminotransferase 14 IU/L (<50); Albumin Globulin Ratio 0.9 (1.0-2.8); Alkaline Phosphatase 78 U/L (38-126); Aspartate Aminotransferase 42 IU/L (17-59); Bilirubin Total 0.6 mg/dL (0.2-1.3); Bilirubin Unconjugated 0.4 mg/dL (0.0-1.1); Globulin 3.3 g/dL (1.7-4.1); HEMOLYSIS < 15 (0-50); Total Protein 6.3 g/dL (6.3-8.2)
[2023-05-30] MEDS: DEXTROSE 5%-LACTATED RINGERS 1,000 ML 84 ML IV (13:12)
[2023-05-30] MEDS: POTASSIUM CHLORIDE IN WATER 10 MEQ/100 ML PIGGYBACK 100 MEQ IV ×2 (13:15→14:15)
[2023-05-30] MEDS: MAGNESIUM SULFATE 2 GM/50 ML PIGGYBACK IV (13:16)
[2023-05-30 13:32] LABS: PCO2 ABG 26.7 mmHg (35-45); PO2 ABG 69 mmHg (80-100); pH ABG 7.41 (7.35-7.45)
[2023-05-30 13:33] LABS: Fractionated Inspired Oxygen 21; HCO3 ABG 17 mmol/L (23-27); Oxygen Saturation ABG 94 % (95-100); TCO2 ABG 18 mmol/L (23-27)
[2023-05-30] MEDS: ALBUMIN HUMAN 25 GM/100 ML VIAL IV (14:05)
[2023-05-30] MEDS: LACTATED RINGERS 500 ML 1000 ML IV (14:06)
[2023-05-30] MEDS: CALCIUM GLUCONATE 9.3 MEQ in SODIUM CHLORIDE 0.9% 50 ML 140 MEQ IV (15:37)
[2023-05-30] MEDS: SODIUM CHLORIDE 0.9% 250 ML 21 ML IV (16:19)
[2023-05-30] MEDS: dexmedeTOMIDine in 0.9 % NaCL 400 MCG/100 ML PLAST..BAG 6.35 MCG IV (18:39)
--- NOTE | 2023-05-30 20:28 | PM.PN.1 ---
Subjective Subjective Date Patient Seen: 05/30/23 Time Patient Seen: 08:00 Interval history: When I first saw patient he was on 1.5 precedex, he was unarousable to sternal rub. Stopped precedex he became combative and threatening to nurses. He became fairly calm and alert on 0.4 precedex. In the afternoon he began seeing roaches crawling on ureña, precedex increased to 0.6 Exam Vital Signs (past 8 hours): - 05/30/23 13:00 05/30/23 13:01 05/30/23 13:01 Temperature Pulse Rate 51 L 50 L Respiratory Rate 23 Blood Pressure 94/62 Pulse Oximetry 98 98 Oxygen Delivery Method Oxygen Flow Rate 05/30/23 13:48 05/30/23 13:48 05/30/23 14:00 Temperature Pulse Rate 64 Respiratory Rate 28 H Blood Pressure 89/57 L 99/71 Pulse Oximetry 96 Oxygen Delivery Method Oxygen Flow Rate 05/30/23 14:00 05/30/23 15:00 05/30/23 15:01 Temperature Pulse Rate 67 79 69 Respiratory Rate 25 H 33 H 29 H Blood Pressure Pulse Oximetry 93 99 94 Oxygen Delivery Method Oxygen Flow Rate 05/30/23 15:01 05/30/23 15:18 05/30/23 16:00 Temperature 96.8 F L Pulse Rate Respiratory Rate Blood Pressure 103/62 101/71 Pulse Oximetry Oxygen Delivery Method Oxygen Flow Rate 05/30/23 16:00 05/30/23 16:00 05/30/23 17:00 Temperature Pulse Rate 62 Respiratory Rate 22 Blood Pressure 106/73 Pulse Oximetry 98 Oxygen Delivery Method Room Air Oxygen Flow Rate 05/30/23 17:00 05/30/23 19:36 05/30/23 19:00 Temperature Pulse Rate 59 L 62 Respiratory Rate 19 23 Blood Pressure 102/71 Pulse Oximetry 99 99 Oxygen Delivery Method Room Air Oxygen Flow Rate 0 05/30/23 20:00 Temperature Pulse Rate 62 Respiratory Rate 25 H Blood Pressure 104/75 Pulse Oximetry 99 Oxygen Delivery Method Oxygen Flow Rate 0 Oxygen Delivery Method Room Air Oxygen Flow Rate 0 Narrative Exam Narrative: General:?Chronically ill appearing, intermittently agitated Lungs:? clear bilaterally Cardio:?regular rate and rhythm, no murmurs Abdomen: soft, mild tenderness, no rebound/guarding Objective Labs 05/30/23 04:40 05/30/23 04:40 Labs: Laboratory Results - last 24 hr 05/30/23 05/30/23 05/30/23 04:40 04:40 04:40 WBC 4.8 RBC 3.39 L Hgb 12.3 L Hct 35.8 L MCV 105.6 H MCH 36.3 H MCHC 34.3 RDW 16.5 H Plt Count 96 L Neut % (Auto) 69.0 Lymph % (Auto) 23.7 L [place] % (Auto) 6.4 Eos % (Auto) 0.7 L Baso % (Auto) 0.2 Neut # (Auto) 3300 Lymph # (Auto) 1100 [place] # (Auto) 300 Eos # (Auto) 0 Baso # (Auto) 0 ABG pH ABG pCO2 ABG pO2 ABG HCO3 ABG Total CO2 ABG O2 Saturation ABG Base Excess FiO2 Sodium 136 L Potassium 3.8 Chloride 104 Carbon Dioxide 20 L BUN 6 L Creatinine 0.44 L Estimated GFR > 60 BUN/Creatinine Ratio 13.6 Glucose 121 H Calcium 7.9 L Magnesium 1.9 Total Bilirubin Conjugated Bilirubin Unconjugated Bilirubin AST ALT Alkaline Phosphatase Total Protein Albumin Globulin Albumin/Globulin Ratio Triglycerides Lipase 05/30/23 05/30/23 05/30/23 04:40 04:40 04:40 WBC RBC Hgb Hct MCV MCH MCHC RDW Plt Count Neut % (Auto) Lymph % (Auto) [place] % (Auto) Eos % (Auto) Baso % (Auto) Neut # (Auto) Lymph # (Auto) [place] # (Auto) Eos # (Auto) Baso # (Auto) ABG pH ABG pCO2 ABG pO2 ABG HCO3 ABG Total CO2 ABG O2 Saturation ABG Base Excess FiO2 Sodium Potassium Chloride Carbon Dioxide BUN Creatinine Estimated GFR BUN/Creatinine Ratio Glucose Calcium Magnesium Total Bilirubin 0.6 Conjugated Bilirubin 0.0 Unconjugated Bilirubin 0.4 AST 42 ALT 14 Alkaline Phosphatase 78 Total Protein 6.3 Albumin 3.0 L Globulin 3.3 Albumin/Globulin Ratio 0.9 L Triglycerides 116 Lipase 1495 H D 05/30/23 13:13 WBC RBC Hgb Hct MCV MCH MCHC RDW Plt Count Neut % (Auto) Lymph % (Auto) [place] % (Auto) Eos % (Auto) Baso % (Auto) Neut # (Auto) Lymph # (Auto) [place] # (Auto) Eos # (Auto) Baso # (Auto) ABG pH 7.41 ABG pCO2 26.7 L ABG pO2 69 L ABG HCO3 17 L ABG Total CO2 18 L ABG O2 Saturation 94 L ABG Base Excess -8.0 L FiO2 21 Sodium Potassium Chloride Carbon Dioxide BUN Creatinine Estimated GFR BUN/Creatinine Ratio Glucose Calcium Magnesium Total Bilirubin Conjugated Bilirubin Unconjugated Bilirubin AST ALT Alkaline Phosphatase Total Protein Albumin Globulin Albumin/Globulin Ratio Triglycerides Lipase [facility] Medical History Alcohol use disorder Social History household members: other Smoking Status: Current every day smoker alcohol intake: current Assessment & Plan Assessment & Plan narrative: 62 y/o M admitted for alcohol withdrawal, transferred to ICU for DTs requiring precedex infusion. 1. Acute encephalopathy with alcohol withdrawal and DTs -may have component of ICU delirium as well -has not tolerated benzos per report of other medical staff due to hallucinations -continue on precedex and goal of light sedation, but arousable -plan for high dose thiamine for 2 days, first day 05/30 2. Abdominal pain, vomiting -lipase elevated, consistent with pancreatitis -NPO for now -monitor symptoms closely -initially on antibiotics, due to CT scan with question of colitis, but this is stopped, no infectious symptoms and no WBC so hold abx for now, but if worsening plan to restart 3 hypokalemia : - replace and monitor, telemetry - replace Mg as noted below. 4 hypomagnesemia - continue to follow and replace 5 tobacco use disorder -increased nicotine patch to 21mg from 7mg on 05/30 as smoke 2 pack/daily 6. pancytopenia - suspect due to EtOH use. continue to follow.
--- NOTE | 2023-05-30 20:50 | PM.ICURNDS ---
- :: This patient was seen via real time interactive two-way audiovisual telecommunication. Note: comfortable in bed, precedex at 0.6 , no agitation, HD stable
[2023-05-30] MEDS: HEPARIN 5,000 UNIT/ML VIAL 5000 UNIT SUBCUT (21:14)
[2023-05-31] VITALS (39 sets, daily range): BP systolic 92–124; BP diastolic 58–84; PULSE 49–81; RESP 15–40; TEMP 36.1–36.8; O2SAT 83–100
[2023-05-31] MEDS: DEXTROSE 5%-LACTATED RINGERS 1,000 ML 84 ML IV (03:26)
[2023-05-31] MEDS: dexmedeTOMIDine in 0.9 % NaCL 400 MCG/100 ML PLAST..BAG 12.7 MCG IV ×2 (04:17→15:57)
[2023-05-31] MEDS: SODIUM CHLORIDE 0.9% 250 ML 21 ML IV (04:19)
[2023-05-31 05:15] LABS: Hematocrit 32.2 % (41-53); Mean Corpuscular HGB Conc 34.1 % (30-36); Mean Corpuscular Hemoglobin 35.7 PG (26-34); Mean Corpuscular Volume 104.6 fL (80-100); Platelet Count 92 X10^3/uL (150-400); Red Blood Cell Count 3.08 X10^6/uL (4.5-5.9); White Blood Cell Count 4.5 X10^3/uL (4.5-11.0)
[2023-05-31] MEDS: LORazepam 2 MG/ML INJ IV (05:15)
[2023-05-31 05:25] LABS: BUN Creatinine Ratio 8.9 (6-22); Blood Urea Nitrogen 4 mg/dL (9-20); Calcium 8.2 mg/dL (8.4-10.2); Carbon Dioxide 23 mmol/L (22-32); Chloride 108 mmol/L (98-107); Estimated Glomerular Filt Rate > 60 mL/min (>60); Glucose 110 mg/dL (80-110); HEMOLYSIS < 15 (0-50); Potassium 3.3 mmol/L (3.4-5.1); Sodium 136 mmol/L (137-145)
[2023-05-31] MEDS: POTASSIUM CHLORIDE IN WATER 10 MEQ/100 ML PIGGYBACK 100 MEQ IV ×4 (07:31→10:53)
[2023-05-31] MEDS: SODIUM CHLORIDE 0.9% 1,000 ML 125 ML IV ×2 (08:57→20:14)
[2023-05-31] MEDS: HEPARIN 5,000 UNIT/ML VIAL 5000 UNIT SUBCUT ×2 (09:08→20:44)
[2023-05-31] MEDS: NICOTINE 21 MG PATCH TOP (09:13)
[2023-05-31] MEDS: PHENobarbital 65 MG/ML VIAL IV ×2 (09:19→17:14)
--- NOTE | 2023-05-31 09:20 | PM.PN.EICU ---
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 CT of abd showed possible distal deterocolitis but no fever, leukocytitis, or diarrhea so abd pain and n/v thought to be more due to ETOH gastritis.? Pt. showed signs of alcohol withdrawal and was given PHenobarb.? He did not improve adequately and he was started on Dex drip and improved. He was then started on librium and ativan with the hope of weaning of Dex drip but he became more confused so benzos were stopped given concern for possible superimposed ICU delirium worsened by benzos. Admit Lipase was 300 but repeat lipase on 05/30/23 increased to >1400 so pt made NPO Recent events Patient remains confused and agitated despite Dex drip going up to 1.2 mcg/kg/hr. Current Medications Current Medications Medications: Home Medications No Known Home Medications 05/28/23 [History Confirmed 05/28/23] Visit Medications (administered) Generic Name Dose Route Start Last Admin Trade Name Freq PRN Reason Stop Dose Admin Famotidine 20 mg 05/28/23 09:00 05/30/23 21:14 Famotidine 20 Mg Tablet PO Not Given BID MIRANDA Folic Acid 1 mg 05/28/23 09:00 05/30/23 10:27 Folic Acid 1 Mg Tablet PO Not Given DAILY MIRANDA Heparin Sodium (Porcine) 50 unit 05/28/23 21:00 05/31/23 09:12 Heparin Flush (Cl/Picc/Mid-Line) 50 Unit/5 Ml Syringe IV 50 unit BID MIRANDA Administration Heparin Sodium (Porcine) 5,000 unit 05/30/23 21:00 05/31/23 09:08 Heparin 5,000 Unit/Ml Vial SUBCUT 5,000 unit BID MIRANDA Administration dexmedeTOMIDine in 0.9 % NaCL 400 mcg in 100 mls @ 3.175 mls/hr 05/28/23 10:45 05/31/23 06:46 Precedex IV 1.2 mcg/kg/hr TITRATE MIRANDA 19.05 mls/hr Titration Protocol 0.2 MCG/KG/HR Thiamine HCl 500 mg/ Sodium 105 mls @ 420 mls/hr 05/30/23 09:45 05/30/23 21:30 Chloride IV 05/31/23 21:14 Infused TID MIRANDA Infusion POTASSIUM CHLORIDE IN WATER 10 meq in 100 mls @ 100 mls/hr 05/31/23 06:45 05/31/23 08:57 Potassium Cl 10 Meq/100 Ml Any IV 05/31/23 10:44 100 mls/hr Q1H MIRANDA Administration Sodium Chloride 1,000 mls @ 125 mls/hr 05/31/23 08:15 05/31/23 08:57 Normal Saline 0.9% IV 05/31/23 20:14 125 mls/hr CONT MIRANDA Administration Lorazepam 0 mg 05/28/23 08:23 05/31/23 05:15 Lorazepam 2 Mg/Ml Inj IV 1 mg [id number] PRN Administration Alcohol Withdrawal Protocol Multivitamins 1 tab 05/28/23 09:00 05/30/23 10:29 Multivitamin 1 Tablet PO Not Given DAILY MIRANDA Nicotine 21 mg 05/30/23 10:30 05/31/23 09:13 Nicotine 21 Mg Patch TOP 21 mg DAILY MIRANDA Administration Thiamine HCl 100 mg 05/28/23 09:00 05/30/23 10:29 Thiamine 100 Mg Tablet PO Not Given DAILY MIRANDA Objective Labs 05/31/23 04:40 05/31/23 04:40 Labs: Laboratory Results - last 24 hr 05/30/23 05/30/23 05/30/23 04:40 04:40 04:40 WBC RBC Hgb Hct MCV MCH MCHC RDW Plt Count ABG pH ABG pCO2 ABG pO2 ABG HCO3 ABG Total CO2 ABG O2 Saturation ABG Base Excess FiO2 Sodium Potassium Chloride Carbon Dioxide BUN Creatinine Estimated GFR BUN/Creatinine Ratio Glucose Calcium Magnesium 1.9 Total Bilirubin 0.6 Conjugated Bilirubin 0.0 Unconjugated Bilirubin 0.4 AST 42 ALT 14 Alkaline Phosphatase 78 Total Protein 6.3 Albumin 3.0 L Globulin 3.3 Albumin/Globulin Ratio 0.9 L Triglycerides Lipase 1495 H D 05/30/23 05/30/23 05/31/23 04:40 13:13 04:40 WBC RBC Hgb Hct MCV MCH MCHC RDW Plt Count ABG pH 7.41 ABG pCO2 26.7 L ABG pO2 69 L ABG HCO3 17 L ABG Total CO2 18 L ABG O2 Saturation 94 L ABG Base Excess -8.0 L FiO2 21 Sodium 136 L Potassium 3.3 L Chloride 108 H Carbon Dioxide 23 BUN 4 L Creatinine 0.45 L Estimated GFR > 60 BUN/Creatinine Ratio 8.9 Glucose 110 Calcium 8.2 L Magnesium Total Bilirubin Conjugated Bilirubin Unconjugated Bilirubin AST ALT Alkaline Phosphatase Total Protein Albumin Globulin Albumin/Globulin Ratio Triglycerides 116 Lipase 05/31/23 04:40 WBC 4.5 RBC 3.08 L Hgb 11.0 L Hct 32.2 L MCV 104.6 H MCH 35.7 H MCHC 34.1 RDW 17.0 H Plt Count 92 L ABG pH ABG pCO2 ABG pO2 ABG HCO3 ABG Total CO2 ABG O2 Saturation ABG Base Excess FiO2 Sodium Potassium Chloride Carbon Dioxide BUN Creatinine Estimated GFR BUN/Creatinine Ratio Glucose Calcium Magnesium Total Bilirubin Conjugated Bilirubin Unconjugated Bilirubin AST ALT Alkaline Phosphatase Total Protein Albumin Globulin Albumin/Globulin Ratio Triglycerides Lipase Exam Vital Signs (past 8 hours): - 05/31/23 02:00 05/31/23 02:00 05/31/23 02:04 Temperature Pulse Rate 72 64 Respiratory Rate 27 H 26 H Blood Pressure 98/62 Pulse Oximetry 95 94 Oxygen Delivery Method Oxygen Flow Rate 05/31/23 03:00 05/31/23 03:00 05/31/23 03:03 Temperature Pulse Rate 68 67 Respiratory Rate 23 23 Blood Pressure 97/72 Pulse Oximetry 98 97 Oxygen Delivery Method Oxygen Flow Rate 05/31/23 03:53 05/31/23 04:00 05/31/23 04:00 Temperature 97.8 F Pulse Rate 68 Respiratory Rate 23 Blood Pressure 94/62 Pulse Oximetry 95 Oxygen Delivery Method Room Air Oxygen Flow Rate 05/31/23 04:25 05/31/23 05:00 05/31/23 05:52 Temperature Pulse Rate 63 69 78 Respiratory Rate 22 20 40 H Blood Pressure 97/58 L 114/79 Pulse Oximetry 96 96 Oxygen Delivery Method Oxygen Flow Rate 0 05/31/23 05:00 05/31/23 05:00 05/31/23 05:54 Temperature Pulse Rate 69 Respiratory Rate 20 Blood Pressure 97/58 L 114/79 Pulse Oximetry 96 Oxygen Delivery Method Oxygen Flow Rate 05/31/23 05:54 05/31/23 06:00 05/31/23 06:00 Temperature Pulse Rate 81 72 Respiratory Rate 31 H 32 H Blood Pressure 112/68 Pulse Oximetry 95 94 Oxygen Delivery Method Oxygen Flow Rate 05/31/23 06:05 05/31/23 07:00 05/31/23 07:00 Temperature Pulse Rate 75 65 Respiratory Rate 23 15 Blood Pressure 106/76 Pulse Oximetry 95 98 Oxygen Delivery Method Oxygen Flow Rate 05/31/23 08:00 05/31/23 08:00 05/31/23 08:00 Temperature Pulse Rate 66 Respiratory Rate 21 Blood Pressure 106/71 Pulse Oximetry 100 Oxygen Delivery Method Room Air Oxygen Flow Rate Oxygen Delivery Method Room Air Oxygen Flow Rate 0 Narrative Exam Narrative: Patient seen over two way audio visual system. His eyes are closed but he is very restless and agitated in bed Assessment & Plan Assessment & Plan narrative: Assessment Delirium-related to acohol withdrawal with perhaps superimposed ICU delirium Alcohol withdarawal Acute pancreatitis-probably ETOH related thrombocytopenia-probably ETOH related Discussion:? difficult to tell how much of patient's agitated delirium at this point is alcohol withdrawal related vs ICU delirium.? Plan [employer]: -Titrate Dex drip as need to keep patient calm but still responsive -thiamine and folate -since patient seemed to have become more confused since benzos given agree with holding benzos -unable to give antipsychotic for ICU delirium given QTC is > 500 -since agitation worse despite high dose Dex drip, will give Phenobarb CV: BP and HR currently adequate Pulm: ABG showed no C02 retention ID: currently no evidence of acute infection GI:pancreatitis probably ETOH related.? CT of abd shows no evidence of gallstone obstruction. Will TG neg -monitor Lipase -keep NPO Heme: Platelets are 80-90s but stable. -daily CBC FEN/Renal: continue maintenance fluid while pt. nPO -replace electrolytes as needed PPX: platelets are on low side but they are stable and patient's DVT risk is moderate to high so do SQ heparin CCT spent 45 min
[2023-05-31] MEDS: THIAMINE 500 MG in SODIUM CHLORIDE 0.9% 100 ML 42 MG IV (09:30)
[2023-05-31 09:59] LABS: Lipase 1962 U/L (23-300)
[2023-05-31] MEDS: dexmedeTOMIDine in 0.9 % NaCL 400 MCG/100 ML PLAST..BAG 19.05 MCG IV (10:15)
[2023-05-31 10:18] LABS: Magnesium 1.7 mg/dL (1.6-2.3)
[2023-05-31] MEDS: MAGNESIUM SULFATE 2 GM/50 ML PIGGYBACK IV (11:17)
[2023-05-31] MEDS: THIAMINE 500 MG in SODIUM CHLORIDE 0.9% 100 ML 420 MG IV ×2 (15:11→20:44)
--- NOTE | 2023-05-31 17:26 | PM.PN.1 ---
Subjective Subjective Interval history: Patient still difficult to control with precedex alone so given dose of phenobarb which helped wean the precedex down. He is sleeping currently. Exam Vital Signs (past 8 hours): - 05/31/23 10:00 05/31/23 10:00 05/31/23 11:00 Temperature Pulse Rate 69 57 L Respiratory Rate 32 H 20 Blood Pressure 92/75 Pulse Oximetry 98 99 Oxygen Delivery Method 05/31/23 11:01 05/31/23 11:01 05/31/23 11:52 Temperature 97.2 F L Pulse Rate 57 L Respiratory Rate 19 Blood Pressure 107/67 Pulse Oximetry 99 Oxygen Delivery Method 05/31/23 12:00 05/31/23 12:00 05/31/23 12:00 Temperature Pulse Rate 52 L Respiratory Rate 20 Blood Pressure 105/76 Pulse Oximetry 98 Oxygen Delivery Method Room Air 05/31/23 13:00 05/31/23 13:00 05/31/23 14:00 Temperature Pulse Rate 60 Respiratory Rate 23 Blood Pressure 111/81 101/76 Pulse Oximetry 99 Oxygen Delivery Method 05/31/23 14:00 05/31/23 15:00 05/31/23 15:00 Temperature Pulse Rate 55 L 60 Respiratory Rate 19 20 Blood Pressure 109/74 Pulse Oximetry 96 97 Oxygen Delivery Method 05/31/23 16:00 05/31/23 16:00 05/31/23 16:01 Temperature Pulse Rate 57 L 60 Respiratory Rate 18 19 Blood Pressure Pulse Oximetry 97 96 Oxygen Delivery Method Room Air 05/31/23 16:01 05/31/23 17:00 05/31/23 17:01 Temperature Pulse Rate 55 L 55 L Respiratory Rate 17 18 Blood Pressure 113/79 Pulse Oximetry 98 98 Oxygen Delivery Method 05/31/23 17:01 Temperature 97.1 F L Pulse Rate Respiratory Rate Blood Pressure 104/79 Pulse Oximetry Oxygen Delivery Method Oxygen Delivery Method Room Air Oxygen Flow Rate 0 Narrative Exam Narrative: General:?Chronically ill appearing, sleeping but intermittently agitated Lungs:? clear bilaterally Cardio:?regular rate and rhythm, no murmurs Abdomen: soft, mild tenderness, no rebound/guarding Objective Labs 05/31/23 04:40 05/31/23 04:40 Labs: Laboratory Results - last 24 hr 05/31/23 05/31/23 05/31/23 04:40 04:40 09:30 WBC 4.5 RBC 3.08 L Hgb 11.0 L Hct 32.2 L MCV 104.6 H MCH 35.7 H MCHC 34.1 RDW 17.0 H Plt Count 92 L Sodium 136 L Potassium 3.3 L Chloride 108 H Carbon Dioxide 23 BUN 4 L Creatinine 0.45 L Estimated GFR > 60 BUN/Creatinine Ratio 8.9 Glucose 110 Calcium 8.2 L Magnesium 1.7 Lipase 1964 H [facility] Medical History Alcohol use disorder Social History household members: other Smoking Status: Current every day smoker alcohol intake: current Assessment & Plan Assessment & Plan narrative: 62 y/o M admitted for alcohol withdrawal, transferred to ICU for DTs requiring precedex infusion. 1. Acute encephalopathy with alcohol withdrawal and DTs -may have component of ICU delirium as well -has not tolerated benzos per report of other medical staff due to hallucinations -continue on precedex and goal of light sedation, but arousable -plan for high dose thiamine for 2 days, first day 05/30 -added phenobarb 65mg IV x2 and is helping to wean the precedex 2. Abdominal pain, vomiting improving -lipase elevated, consistent with pancreatitis -NPO for now -monitor symptoms closely -initially on antibiotics, due to CT scan with question of colitis, but this is stopped, no infectious symptoms and no WBC so hold abx for now, but if worsening plan to restart -IVF 3 hypokalemia - replace and monitor, telemetry - replace Mg as noted below. 4 hypomagnesemia - continue to follow and replace 5 tobacco use disorder -increased nicotine patch to 21mg from 7mg on 05/30 as smoke 2 pack/daily 6. pancytopenia - suspect due to EtOH use. continue to follow. Dispo: ICU
--- NOTE | 2023-05-31 20:28 | PM.EVENT ---
Event Note Date Patient Seen: 05/31/23 Event Note (Rapid Response, Code, or fall): Patient is currently on precedex 1 mcg with current RASS -1. Cont titrating precedex and notify MD for RASS > 2+ for phenobarb therapy. D/w bedside RN.
[2023-05-31] MEDS: dexmedeTOMIDine in 0.9 % NaCL 400 MCG/100 ML PLAST..BAG 15.875 MCG IV (22:59)
[2023-06-01] VITALS (39 sets, daily range): BP systolic 95–131; BP diastolic 64–89; PULSE 46–111; RESP 17–32; TEMP 35.9–36.8; O2SAT 94–99
[2023-06-01] MEDS: DEXTROSE 5%-0.45% NS 1,000 ML 125 ML IV ×2 (01:16→09:23)
[2023-06-01] MEDS: dexmedeTOMIDine in 0.9 % NaCL 400 MCG/100 ML PLAST..BAG 15.875 MCG IV (05:31)
--- NOTE | 2023-06-01 08:02 | P.PN_ITS ---
Subjective Subjective Interval history: Patient doing better today. Precedex weaned down and he is now calm and a ppropriate. Now eating well. Exam Vital Signs (past 8 hours): - 06/01/23 00:05 06/01/23 00:05 06/01/23 01:00 Temperature Pulse Rate 48 L 48 L Respiratory Rate 17 19 Blood Pressure 110/73 Pulse Oximetry 96 95 Oxygen Delivery Method Oxygen Flow Rate 06/01/23 01:00 06/01/23 01:27 06/01/23 02:00 Temperature 97.0 F L Pulse Rate 51 L 46 L Respiratory Rate 20 18 Blood Pressure 120/75 111/75 Pulse Oximetry 98 96 Oxygen Delivery Method Oxygen Flow Rate 0 06/01/23 02:00 06/01/23 02:00 06/01/23 03:00 Temperature Pulse Rate 46 L 60 Respiratory Rate 18 25 H Blood Pressure 111/75 Pulse Oximetry 96 95 Oxygen Delivery Method Oxygen Flow Rate 06/01/23 03:00 06/01/23 03:17 06/01/23 04:00 Temperature Pulse Rate 49 L Respiratory Rate 18 Blood Pressure 109/78 Pulse Oximetry 94 Oxygen Delivery Method Room Air Oxygen Flow Rate 06/01/23 04:00 06/01/23 04:39 06/01/23 04:39 Temperature 97.4 F L Pulse Rate 51 L Respiratory Rate 19 Blood Pressure 108/79 Pulse Oximetry 95 Oxygen Delivery Method Oxygen Flow Rate 06/01/23 04:51 06/01/23 05:01 06/01/23 05:01 Temperature Pulse Rate 48 L 50 L Respiratory Rate 18 19 Blood Pressure 115/76 Pulse Oximetry 97 97 Oxygen Delivery Method Oxygen Flow Rate 06/01/23 05:03 06/01/23 06:01 06/01/23 06:01 Temperature Pulse Rate 50 L 51 L Respiratory Rate 18 18 Blood Pressure 115/76 Pulse Oximetry 97 97 Oxygen Delivery Method Oxygen Flow Rate 06/01/23 06:28 Temperature Pulse Rate 51 L Respiratory Rate 20 Blood Pressure Pulse Oximetry 98 Oxygen Delivery Method Oxygen Flow Rate Oxygen Delivery Method Room Air Oxygen Flow Rate 0 Narrative Exam Narrative: General:?Chronically ill appearing, awake but keeps eyes closed, oriented Lungs:? bilateral expiratory wheezes Cardio:?regular rate and rhythm, no murmurs Abdomen: soft, mild tenderness, no rebound/guarding Objective Labs 06/01/23 08:50 06/01/23 08:50 Labs: Laboratory Results - last 24 hr 05/31/23 09:30 Magnesium 1.7 Lipase 1964 H [facility] Medical History Alcohol use disorder Social History household members: other Smoking Status: Current every day smoker alcohol intake: current Assessment & Plan Assessment & Plan narrative: 62 y/o M admitted for alcohol withdrawal, transferred to ICU for DTs requiring precedex infusion. 1. Acute encephalopathy with alcohol withdrawal and DTs, improving -may have component of ICU delirium as well -has not tolerated benzos per report of other medical staff due to hallucinations -continue on precedex and goal of light sedation, but arousable -plan for high dose thiamine for 2 days, first day 05/30 -added phenobarb 65mg IV x2 and is helping to wean the precedex -precedex now weaned and patient more interactive and calm 2. Acute pancreatitis, improving -lipase elevated, consistent with pancreatitis -now advancing diet -monitor symptoms closely -initially on antibiotics, due to CT scan with question of colitis, but this is stopped, no infectious symptoms and no WBC so hold abx for now, but if worsening plan to restart -IVF stopped 3 hypokalemia - replace and monitor, telemetry - replace Mg as noted below. 4 hypomagnesemia - continue to follow and replace 5 tobacco use disorder -increased nicotine patch to 21mg from 7mg on 05/30 as smoke 2 pack/daily 6. pancytopenia - suspect due to EtOH use. continue to follow. 7. Wheezing -start duonebs -CXR to assess for pulm edema with excess IVF Dispo: Home vs SNF in 2 days. PT eval ordered.
--- NOTE | 2023-06-01 08:52 | PM.PN.EICU ---
Subjective Subjective IF CAMERA ACTIVATED, patient seen via real-time interactive audiovisual communication: Camera activated Consent obtained for tele-aircraft fueler care: Yes Patient Location: ICU Provider location (State): [place] Other participants/roles: hospitalist, RN Interval history: 2 yo Man with PMH of heavy alcohol use presented 05/27/23 with history of few days of lower abdominal pain and n/v.? CT of abd showed possible distal deterocolitis but no fever, leukocytitis, or diarrhea so abd pain and n/v thought to be more due to ETOH gastritis.? Pt. showed signs of alcohol withdrawal and was given PHenobarb.? He did not improve adequately and he was started on Dex drip and improved. He was then started on librium and ativan with the hope of weaning of Dex drip but he became more confused so benzos were stopped given concern for possible superimposed ICU delirium worsened by benzos. Admit Lipase was 300 but repeat lipase on 05/30/23 increased to >1400 so pt made NPO 05/31:Patient remained confused and agitated despite Dex drip going up to 1.2 mcg/kg/hr so he was given phenobarb Recent events: confusion and agitation is better. Precedex drip has been weaned down to 0.8 mcg/kg/min. Pt. able to be cooperative during oral care and linen change today per nursing. Current Medications Current Medications Medications: Home Medications No Known Home Medications 05/28/23 [History Confirmed 05/28/23] Visit Medications (administered) Generic Name Dose Route Start Last Admin Trade Name Freq PRN Reason Stop Dose Admin Famotidine 20 mg 05/28/23 09:00 05/31/23 20:44 Famotidine 20 Mg Tablet PO Not Given BID MIRANDA Folic Acid 1 mg 05/28/23 09:00 05/31/23 10:14 Folic Acid 1 Mg Tablet PO Not Given DAILY MIRANDA Heparin Sodium (Porcine) 50 unit 05/28/23 21:00 05/31/23 20:45 Heparin Flush (Cl/Picc/Mid-Line) 50 Unit/5 Ml Syringe IV Not Given BID MIRANDA Heparin Sodium (Porcine) 5,000 unit 05/30/23 21:00 05/31/23 20:44 Heparin 5,000 Unit/Ml Vial SUBCUT 5,000 unit BID MIRANDA Administration dexmedeTOMIDine in 0.9 % NaCL 400 mcg in 100 mls @ 3.175 mls/hr 05/28/23 10:45 06/01/23 05:31 Precedex IV 1 mcg/kg/hr TITRATE MIRANDA 15.875 mls/hr Administration Protocol 0.2 MCG/KG/HR Dextrose/Sodium Chloride 1,000 mls @ 125 mls/hr 06/01/23 01:15 06/01/23 01:16 Dextrose 5%-0.45% Ns IV 125 mls/hr CONT MIRANDA Administration Lorazepam 0 mg 05/28/23 08:23 05/31/23 05:15 Lorazepam 2 Mg/Ml Inj IV 1 mg CIWAPRN PRN Administration Alcohol Withdrawal Protocol Multivitamins 1 tab 05/28/23 09:00 05/31/23 10:14 Multivitamin 1 Tablet PO Not Given DAILY MIRANDA Nicotine 21 mg 05/30/23 10:30 05/31/23 09:13 Nicotine 21 Mg Patch TOP 21 mg DAILY MIRANDA Administration Thiamine HCl 100 mg 05/28/23 09:00 05/30/23 10:29 Thiamine 100 Mg Tablet PO Not Given DAILY MIRANDA Objective Labs 05/31/23 04:40 05/31/23 04:40 Labs: Laboratory Results - last 24 hr 05/31/23 09:30 Magnesium 1.7 Lipase 1962 H Exam Vital Signs (past 8 hours): - 06/01/23 01:00 06/01/23 01:00 06/01/23 01:27 Temperature 97.0 F L Pulse Rate 48 L 51 L Respiratory Rate 19 20 Blood Pressure 120/75 Pulse Oximetry 95 98 Oxygen Delivery Method Oxygen Flow Rate 06/01/23 02:00 06/01/23 02:00 06/01/23 02:00 Temperature Pulse Rate 46 L 46 L Respiratory Rate 18 18 Blood Pressure 111/75 111/75 Pulse Oximetry 96 96 Oxygen Delivery Method Oxygen Flow Rate 0 06/01/23 03:00 06/01/23 03:00 06/01/23 03:17 Temperature Pulse Rate 60 49 L Respiratory Rate 25 H 18 Blood Pressure 109/78 Pulse Oximetry 95 94 Oxygen Delivery Method Oxygen Flow Rate 06/01/23 04:00 06/01/23 04:00 06/01/23 04:39 Temperature 97.4 F L Pulse Rate 51 L Respiratory Rate 19 Blood Pressure Pulse Oximetry 95 Oxygen Delivery Method Room Air Oxygen Flow Rate 06/01/23 04:39 06/01/23 04:51 06/01/23 05:01 Temperature Pulse Rate 48 L 50 L Respiratory Rate 18 19 Blood Pressure 108/79 Pulse Oximetry 97 97 Oxygen Delivery Method Oxygen Flow Rate 06/01/23 05:01 06/01/23 05:03 06/01/23 06:01 Temperature Pulse Rate 50 L Respiratory Rate 18 Blood Pressure 115/76 115/76 Pulse Oximetry 97 Oxygen Delivery Method Oxygen Flow Rate 06/01/23 06:01 06/01/23 06:28 Temperature Pulse Rate 51 L 51 L Respiratory Rate 18 20 Blood Pressure Pulse Oximetry 97 98 Oxygen Delivery Method Oxygen Flow Rate Oxygen Delivery Method Room Air Oxygen Flow Rate 0 Narrative Exam Narrative: Patient seen over two way audio visual system. He appears to be resting peacefully in bed. Assessment & Plan Assessment & Plan narrative: Assessment Delirium-related to acohol withdrawal with perhaps superimposed ICU delirium Alcohol withdarawal Acute pancreatitis-probably ETOH related thrombocytopenia-probably ETOH related Discussion:? difficult to tell how much of patient's agitated delirium at this point is alcohol withdrawal related vs ICU delirium.? Plan ROUGH RICE TENDER: -Titrate Dex drip as need to keep patient calm but still responsive -thiamine and folate -since patient seemed to have become more confused since benzos given agree with holding benzos -unable to give antipsychotic for ICU delirium given QTC is > 500 -phenobarb as needed for agitated delirium as Dex is being weaned down CV: BP and HR currently adequate Pulm: ABG showed no C02 retention ID: currently no evidence of acute infection GI:pancreatitis probably ETOH related.? CT of abd shows no evidence of gallstone obstruction. Will TG neg -monitor Lipase -keep NPO -abd ultrasound today to rule out gallstone pancreatitis (as abd ultrasoun is more sensitive than CT of abd for ruling gall stone obstruction) Heme: Platelets are 80-90s but stable. -daily CBC FEN/Renal: continue maintenance fluid while pt. nPO -replace electrolytes as needed PPX: SQ heparin CCT spent 45 min
[2023-06-01 09:24] LABS: BUN Creatinine Ratio 7.1 (6-22); Blood Urea Nitrogen 3 mg/dL (9-20); Calcium 7.4 mg/dL (8.4-10.2); Carbon Dioxide 20 mmol/L (22-32); Chloride 109 mmol/L (98-107); Estimated Glomerular Filt Rate > 60 mL/min (>60); Glucose 104 mg/dL (80-110); HEMOLYSIS < 15 (0-50); Potassium 2.9 mmol/L (3.4-5.1); Sodium 137 mmol/L (137-145)
[2023-06-01 09:25] LABS: Magnesium 1.8 mg/dL (1.6-2.3)
[2023-06-01 09:27] LABS: Add Manual Diff / Slide Review NO; Basophils Absolute Auto 0 /uL (0-100); Basophils Percent Auto 0.3 % (0-2); Eosinophils Absolute Auto 100 /uL (0-450); Eosinophils Percent Auto 1.5 % (2-4); Hematocrit 35.6 % (41-53); Lymphocytes Absolute Auto 1000 /uL (1100-4500); Lymphocytes Percent Auto 24.6 % (25-40); Mean Corpuscular HGB Conc 33.8 % (30-36); Mean Corpuscular Hemoglobin 35.5 PG (26-34); Mean Corpuscular Volume 105.2 fL (80-100); Monocytes Absolute Auto 500 /uL (0-900); Neutrophils Absolute Auto 2500 /uL (1500-7000); Neutrophils Percent Auto 60.6 % (50-75); Platelet Count 87 X10^3/uL (150-400); Red Blood Cell Count 3.38 X10^6/uL (4.5-5.9); Red Cell Distribution Width 17.1 % (11.6-14.8); White Blood Cell Count 4.1 X10^3/uL (4.5-11.0)
[2023-06-01] MEDS: HEPARIN 5,000 UNIT/ML VIAL 5000 UNIT SUBCUT ×2 (09:57→20:41)
[2023-06-01] MEDS: NICOTINE 21 MG PATCH TOP (09:57)
[2023-06-01] MEDS: POTASSIUM CHLORIDE IN WATER 10 MEQ/100 ML PIGGYBACK 100 MEQ IV ×6 (09:58→15:44)
[2023-06-01] MEDS: MAGNESIUM SULFATE 2 GM/50 ML PIGGYBACK IV (10:56)
[2023-06-01] MEDS: FOLIC ACID 1 MG TABLET PO (11:22)
[2023-06-01] MEDS: FAMOTIDINE 20 MG TABLET PO ×2 (11:22→20:40)
[2023-06-01] MEDS: MULTIVITAMIN 1 TABLET 1 TAB PO (11:22)
[2023-06-01] MEDS: THIAMINE 100 MG TABLET PO (11:23)
--- NOTE | 2023-06-01 11:30 | DI.US.S_ITS ---
PROCEDURE: US ABDOMEN LIMITED INDICATIONS: PANCREATITIS TECHNIQUE: Real-time scanning was performed of the abdominal and retroperitoneal organs, with image documentation. COMPARISON: [facility], CT, CT ABDOMEN PELVIS W CON, 05/27/2023, 20:35. FINDINGS: Liver: Increased liver echogenicity with posterior attenuation, most consistent with moderate to severe steatosis. Gallbladder: No nephrolithiasis. No wall thickening. Biliary ducts: Intrahepatic bile ducts are non-dilated. Extrahepatic bile duct caliber measures 5 mm. Normal is 6-7 mm or less in diameter, or 10 mm or less post-cholecystectomy. Pancreas: Visualized portions of the pancreas are sonographically normal. IMPRESSION: No cholelithiasis or choledocholithiasis. Dictated by: Neto Avelar M.D. on 06/01/2023 at 8:38 Approved by: Neto Avelar M.D. on 06/01/2023 at 8:39
[2023-06-01 11:45] LABS: Lipase 613 U/L (23-300)
[2023-06-01 14:12] LABS: Lipase 1237 U/L (23-300)
[2023-06-01] MEDS: dexmedeTOMIDine in 0.9 % NaCL 400 MCG/100 ML PLAST..BAG IV (14:43)
[2023-06-01] MEDS: SODIUM CHLORIDE 0.9% 250 ML 21 ML IV (16:18)
[2023-06-01 18:20] LABS: HEMOLYSIS < 15 (0-50); Potassium 3.8 mmol/L (3.4-5.1)
--- NOTE | 2023-06-01 18:25 | DI.RAD.S_ITS ---
PROCEDURE: XR CHEST 1V INDICATIONS: wheezing TECHNIQUE: One view of the chest was acquired. COMPARISON: None. FINDINGS: Surgical changes and devices: None. Lungs and pleura: Generalized interstitial prominence can be seen. On this supine examination, no large pneumothorax or large pleural effusions are seen. No focal areas of lung consolidation are seen. Mediastinum: Mediastinal contours appear normal. Heart size is at the upper limits of normal for portable technique. Atherosclerotic calcification of the aortic arch is noted. Bones and chest wall: No suspicious bony lesions. Age-appropriate bony degenerative changes are seen. Overlying soft tissues appear unremarkable. IMPRESSION: Generalized interstitial prominence can be seen. Pulmonary edema is suspected, although please also consider atypical/viral infection. Heart size at the upper limits of normal portable technique. Dictated by: Charbel Clark M.D. on 06/01/2023 at 17:59 Approved by: Charbel Clark M.D. on 06/01/2023 at 18:00
--- NOTE | 2023-06-01 19:51 | PM.ICURNDS ---
- Date Patient Seen: 06/01/23 Time Patient Seen: 19:51 :: This patient was seen via real time interactive two-way audiovisual telecommunication. Note: No acute issues during the day. On precedex gtt 0.6 mcg. Cont titrating down to seek RASS goal -1 to 0. D/w bedside RN.
[2023-06-02] VITALS (37 sets, daily range): BP systolic 88–140; BP diastolic 56–87; PULSE 59–109; RESP 16–43; TEMP 36.3–37.6; O2SAT 88–97
[2023-06-02] MEDS: dexmedeTOMIDine in 0.9 % NaCL 400 MCG/100 ML PLAST..BAG 12.7 MCG IV (01:53)
[2023-06-02 04:32] LABS: Add Manual Diff / Slide Review NO; Basophils Absolute Auto 0 /uL (0-100); Basophils Percent Auto 0.5 % (0-2); Eosinophils Absolute Auto 100 /uL (0-450); Eosinophils Percent Auto 1.7 % (2-4); Hematocrit 31.4 % (41-53); Hemoglobin 10.8 g/dL (13.5-17.5); Lymphocytes Absolute Auto 1200 /uL (1100-4500); Mean Corpuscular HGB Conc 34.3 % (30-36); Mean Corpuscular Hemoglobin 36.2 PG (26-34); Mean Corpuscular Volume 105.5 fL (80-100); Monocytes Absolute Auto 500 /uL (0-900); Monocytes Percent Auto 10.5 % (3-14); Neutrophils Absolute Auto 2500 /uL (1500-7000); Neutrophils Percent Auto 59.3 % (50-75); Platelet Count 122 X10^3/uL (150-400); Red Blood Cell Count 2.98 X10^6/uL (4.5-5.9); Red Cell Distribution Width 16.8 % (11.6-14.8); White Blood Cell Count 4.3 X10^3/uL (4.5-11.0)
[2023-06-02 04:39] LABS: BUN Creatinine Ratio 6.4 (6-22); Blood Urea Nitrogen 3 mg/dL (9-20); Calcium 7.6 mg/dL (8.4-10.2); Carbon Dioxide 18 mmol/L (22-32); Chloride 108 mmol/L (98-107); Estimated Glomerular Filt Rate > 60 mL/min (>60); Glucose 77 mg/dL (80-110); HEMOLYSIS < 15 (0-50); Magnesium 1.8 mg/dL (1.6-2.3); Sodium 136 mmol/L (137-145)
--- NOTE | 2023-06-02 05:56 | PC.NURSE ---
Addendum entered by Layne Contreras R.N. 06/02/23 06:20: 0620- Repeat blood glucose is 99. Will monitor. Original Note: 0545- Am lab shows blood glucose is 77. Patient is able to take po. Patient given orange juice. Will recheck blood glucose in 20 minutes. Will monitor.
[2023-06-02 06:04] LABS: Lipase 948 U/L (23-300)
[2023-06-02] MEDS: SODIUM CHLORIDE 0.9% 250 ML 21 ML IV (06:04)
--- NOTE | 2023-06-02 08:10 | P.PN_ITS ---
Subjective Subjective Interval history: He is more awake, slurred and slow speech. No pain complaints. Exam Vital Signs (past 8 hours): - 06/02/23 00:53 06/02/23 01:00 06/02/23 01:00 Temperature Pulse Rate 66 80 Respiratory Rate 17 23 Blood Pressure 88/56 L Pulse Oximetry 94 95 Oxygen Delivery Method 06/02/23 01:01 06/02/23 02:01 06/02/23 02:01 Temperature Pulse Rate 77 71 Respiratory Rate 23 20 Blood Pressure 112/63 Pulse Oximetry 95 95 Oxygen Delivery Method 06/02/23 02:06 06/02/23 03:00 06/02/23 03:00 Temperature Pulse Rate 66 59 L Respiratory Rate 19 16 Blood Pressure 100/67 Pulse Oximetry 94 94 Oxygen Delivery Method 06/02/23 03:01 06/02/23 04:00 06/02/23 04:00 Temperature 97.4 F L Pulse Rate 59 L 60 Respiratory Rate 16 16 Blood Pressure 93/67 Pulse Oximetry 94 94 Oxygen Delivery Method 06/02/23 05:01 06/02/23 05:01 06/02/23 05:14 Temperature Pulse Rate 65 62 Respiratory Rate 21 18 Blood Pressure 107/72 Pulse Oximetry 93 92 Oxygen Delivery Method 06/02/23 04:00 06/02/23 06:00 06/02/23 06:00 Temperature Pulse Rate 75 Respiratory Rate 25 H Blood Pressure 105/68 Pulse Oximetry 93 Oxygen Delivery Method Room Air 06/02/23 07:00 06/02/23 07:00 Temperature Pulse Rate 61 Respiratory Rate 18 Blood Pressure 99/67 Pulse Oximetry 94 Oxygen Delivery Method Oxygen Delivery Method Room Air Oxygen Flow Rate 0 Narrative Exam Narrative: NAD, Awake and slow to respond. EOMI Anicteric sclera Lungs CTA CV RRR without MGR Abdomen Soft, NT ND No leg edema No rash Objective Imaging Chest x-ray: My impression: Pulmonary edema. Radiologist's impression: ? ? IMPRESSION:? Generalized interstitial prominence can be seen.? Pulmonary edema is suspected, although please also consider atypical/viral infection. Labs 06/02/23 04:12 06/02/23 04:12 Labs: Laboratory Results - last 24 hr 06/01/23 06/01/23 06/01/23 08:50 08:50 08:50 WBC 4.1 L RBC 3.38 L Hgb 12.0 L Hct 35.6 L MCV 105.2 H MCH 35.5 H MCHC 33.8 RDW 17.1 H Plt Count 87 L Neut % (Auto) 60.6 Lymph % (Auto) 24.6 L Caroline % (Auto) 13.0 Eos % (Auto) 1.5 L Baso % (Auto) 0.3 Neut # (Auto) 2500 Lymph # (Auto) 1000 L Caroline # (Auto) 500 Eos # (Auto) 100 Baso # (Auto) 0 Sodium 137 Potassium 2.9 L Chloride 109 H Carbon Dioxide 20 L BUN 3 L Creatinine 0.42 L Estimated GFR > 60 BUN/Creatinine Ratio 7.1 Glucose 104 Calcium 7.4 L Magnesium 1.8 Lipase 06/01/23 06/01/23 06/01/23 08:50 13:30 18:05 WBC RBC Hgb Hct MCV MCH MCHC RDW Plt Count Neut % (Auto) Lymph % (Auto) Caroline % (Auto) Eos % (Auto) Baso % (Auto) Neut # (Auto) Lymph # (Auto) Caroline # (Auto) Eos # (Auto) Baso # (Auto) Sodium Potassium 3.8 Chloride Carbon Dioxide BUN Creatinine Estimated GFR BUN/Creatinine Ratio Glucose Calcium Magnesium Lipase 613 H D 1237 H D 06/02/23 06/02/23 06/02/23 04:12 04:12 04:12 WBC 4.3 L RBC 2.98 L Hgb 10.8 L Hct 31.4 L MCV 105.5 H MCH 36.2 H MCHC 34.3 RDW 16.8 H Plt Count 122 L Neut % (Auto) 59.3 Lymph % (Auto) 28.0 Caroline % (Auto) 10.5 Eos % (Auto) 1.7 L Baso % (Auto) 0.5 Neut # (Auto) 2500 Lymph # (Auto) 1200 Caroline # (Auto) 500 Eos # (Auto) 100 Baso # (Auto) 0 Sodium 136 L Potassium 3.0 L Chloride 108 H Carbon Dioxide 18 L BUN 3 L Creatinine 0.47 L Estimated GFR > 60 BUN/Creatinine Ratio 6.4 Glucose 77 L Calcium 7.6 L Magnesium 1.8 Lipase 948 H [facility] Medical History Alcohol use disorder Social History household members: other Smoking Status: Current every day smoker alcohol intake: current Assessment & Plan Assessment & Plan narrative: 62 y/o M admitted for alcohol withdrawal, transferred to ICU for DT's requiring precedex infusion. 1. Acute metabolic encephalopathy with alcohol withdrawal and DTs, improving -continue on precedex and goal of light sedation, but arousable -continue thiamine. -Wean Precedex as able. -Add Librium PO TID. 2. Acute pancreatitis, POA and iimproving -advance diet and monitor. 3. Hypokalemia, new and active. ?- replace and monitor, telemetry ?- replace Mg as noted below. 4. Hypomagnesemia, new and active. ?- continue to follow and replace 5. Tobacco use disorder, POA. -increased nicotine patch to 21mg from 7mg on 05/30 as smoke 2 pack/daily 6. Pancytopenia, POA and stable. ?- suspect due to EtOH use. continue to follow. 7. Pulmonary edema, new and active. -diurese and ECHO to assess LVEF. Dispo: Home vs SNF in 2 days. PT eval ordered. Time Spent With Patient Time with patient: 30 to 49 minutes with 50% spent counseling/coordinating care
[2023-06-02] MEDS: FUROSEMIDE 20 MG/2 ML VIAL IV (08:38)
[2023-06-02] MEDS: HEPARIN 5,000 UNIT/ML VIAL 5000 UNIT SUBCUT ×2 (08:38→20:26)
[2023-06-02] MEDS: POTASSIUM CHLORIDE 20 MEQ TAB 40 MEQ PO ×3 (08:38→16:22)
[2023-06-02] MEDS: chlordiazePOXIDE 10 MG CAPSULE PO ×3 (08:39→20:26)
[2023-06-02] MEDS: FOLIC ACID 1 MG TABLET PO (08:39)
[2023-06-02] MEDS: NICOTINE 21 MG PATCH TOP (08:39)
[2023-06-02] MEDS: THIAMINE 100 MG TABLET PO (08:39)
[2023-06-02] MEDS: MULTIVITAMIN 1 TABLET 1 TAB PO (08:39)
[2023-06-02] MEDS: FAMOTIDINE 20 MG TABLET PO ×2 (08:39→20:26)
[2023-06-02] MEDS: dexmedeTOMIDine in 0.9 % NaCL 400 MCG/100 ML PLAST..BAG 9.525 MCG IV (08:40)
--- NOTE | 2023-06-02 09:25 | DI.ECHO.S_ITS ---
[facility]---------+ [facility] +---------+ : : [address] : : : : [id number] : : : : Phone: [phone]+ Echocardiogram Report + + :Name: ABI FIERRO Study Date: 06/02/2023 Height: 67 in : [facility] ReadingLocation: Weight: 151 lb : : Gender: Male BSA: 1.8 m2 : :: 1960 Age: 62 yrs BP: 112/68 mmHg: :Reason For Study: PULMONARY EDEMA : :Ordering Physician: DESTIN, : :ARIN Stephens Performed By: Stefany Rivas : :Referring: ARIN WEIR : + + Interpretation Summary Rhythm not clear however suspect atrial flutter with heart rate 76-105 bpm The left ventricle is normal in size and wall thickness. The ejection fraction is estimated to be 30-35%. Except basal LV segments which are hyperkinetic., Rest of the LV segments severely hypokinetic.This findings may suggest stress-induced cardiomyopathy however multivessel coronary disease cannot be ruled out. The right ventricle is grossly normal size. Right ventricular systolic function is at the lower limits of normal. No significant valvular pathology seen. There is a moderate left-sided pleural effusion. The IVC is of normal diameter and collapses less than 50% with a sniff. This suggests a right atrial pressure of 8 mm Hg. Procedure: A two-dimensional transthoracic echocardiogram with color flow and Doppler was performed. The study quality was technically adequate. There is no prior echocardiogram noted for this patient. Rhythm not clear however suspect atrial flutter with heart rate 76-105 bpm. Left Ventricle: The left ventricle is normal in size and wall thickness. There is no thrombus. The ejection fraction is estimated to be 30-35%. Except basal LV segments which are hyperkinetic., Rest of the LV segments severely hypokinetic.This findings may suggest stress-induced cardiomyopathy however multivessel coronary disease cannot be ruled out. Diastolic function could not be accurately assessed due to tachycardia. Right Ventricle: The right ventricle is grossly normal size. Right ventricular systolic function is at the lower limits of normal. Atria: The left atrial size is normal. Right atrial size is normal. There is no Doppler evidence for an interatrial shunt. Mitral Valve: There is mild mitral annular calcification. There is no mitral regurgitation noted. Aortic Valve: The aortic valve is trileaflet. The aortic valve opens well. There is mild aortic valve sclerosis. There is no aortic valve stenosis. There is trace aortic regurgitation. Tricuspid Valve: The tricuspid valve is normal. There is trace tricuspid regurgitation. Pulmonic Valve: The pulmonic valve leaflets are thin and pliable; valve motion is normal. There is no pulmonic valvular regurgitation. Great Vessels: The aortic root is normal size. The dimensions of the ascending aorta are normal. The IVC is of normal diameter and collapses less than 50% with a sniff. This suggests a right atrial pressure of 8 mm Hg. Pericardium/ Pleura There is no pericardial effusion. There is a moderate left-sided pleural effusion. MMode/2D Measurements & Calculations LVIDd: 5.4 cm LVOT diam: 2.3 cm LVIDs: 4.2 cm Ao root diam: 3.9 cm FS: 21.1 % Ao Arch Diam (Prox Trans): 2.9 cm EPSS: 1.3 cm IVSd: 0.78 cm LVPWd: 0.71 cm LV mitchell. diameter/BSA (cm/m^2): 3.0 LV sys. diameter/BSA (cm/m^2): 2.4 LA A2 area: 16.7 cm2 RA long axis: 4.5 cm LA A4 area: 11.1 cm2 RA area: 12.1 cm2 LA length (vol): 4.0 cm RA vol: 27.5 ml LA vol: 39.7 ml RA : 15.3 ml/m2 LA vol index: 22.1 ml/m2 IVC diam: 1.9 cm RVD1 (basal): 3.0 cm RVD2 (mid): 2.3 cm TAPSE: 1.6 cm Doppler Measurements & Calculations Ao V2 max: 96.4 cm/sec LVOT Max Bartolo: 59.9 cm/sec Ao V2 mean: 65.4 cm/sec LV V1 max P.4 mmHg Ao max P.7 mmHg LV V1 VTI: 11.3 cm Ao mean P.9 mmHg HAIDER(I,D): 3.0 cm2 Ao V2 VTI: 16.3 cm HAIDER(V,D): 2.7 cm2 sev ratio: 0.69 HAIDER indexed to BSA (cm^2/m^2): 1.6 MV E max bartolo: 39.4 cm/sec PA V2 max: 78.6 cm/sec MV A max bartolo: 83.5 cm/sec PA V2 mean: 56.3 cm/sec MV E/A: 0.47 PA mean P.4 mmHg Med Peak E' Bartolo: 4.4 cm/sec PA pr(Accel): 49.9 mmHg E/E' med: 8.9 Lat Peak E' Bartolo: 4.9 cm/sec E/E' lat: 8.0 E/e' average: 8.4 MV dec time: 0.17 sec SV(LVOT): 48.2 ml Reading Physician:12:52 PM
--- NOTE | 2023-06-02 09:33 | P.TELICUPN_ITS ---
Subjective Subjective IF CAMERA ACTIVATED, patient seen via real-time interactive audiovisual communication: Camera activated Date Patient Seen: 06/02/23 Consent obtained for tele-numerical control lathe operator care: Yes Patient Location: ICU Provider location (State): [place] Other participants/roles: Bedside RN Interval history: No acute issues overnight. Started on librium therapy. Diuresed w/ lasix this morning. CXR showed bilateral airspace disease. Current Medications Current Medications Medications: Home Medications No Known Home Medications 05/28/23 [History Confirmed 05/28/23] Visit Medications (administered) Generic Name Dose Route Start Last Admin Trade Name Freq PRN Reason Stop Dose Admin Chlordiazepoxide HCl 10 mg 06/02/23 09:00 06/02/23 08:39 Chlordiazepoxide 10 Mg Capsule PO 10 mg TID MIRANDA Administration Famotidine 20 mg 05/28/23 09:00 06/02/23 08:39 Famotidine 20 Mg Tablet PO 20 mg BID MIRANDA Administration Folic Acid 1 mg 05/28/23 09:00 06/02/23 08:39 Folic Acid 1 Mg Tablet PO 1 mg DAILY MIRANDA Administration Heparin Sodium (Porcine) 50 unit 05/28/23 21:00 06/01/23 20:36 Heparin Flush (Cl/Picc/Mid-Line) 50 Unit/5 Ml Syringe IV Not Given BID MIRANDA Heparin Sodium (Porcine) 5,000 unit 05/30/23 21:00 06/02/23 08:38 Heparin 5,000 Unit/Ml Vial SUBCUT 5,000 unit BID MIRANDA Administration dexmedeTOMIDine in 0.9 % NaCL 400 mcg in 100 mls @ 3.175 mls/hr 05/28/23 10:45 06/02/23 08:40 Precedex IV 0.6 mcg/kg/hr TITRATE MIRANDA 9.525 mls/hr Administration Protocol 0.2 MCG/KG/HR Sodium Chloride 250 mls @ 21 mls/hr 06/01/23 15:51 06/02/23 06:04 Normal Saline 0.9% IV 21 mls/hr Q24H PRN Administration Flush Lorazepam 0 mg 05/28/23 08:23 05/31/23 05:15 Lorazepam 2 Mg/Ml Inj IV 1 mg CIWAPRN PRN Administration Alcohol Withdrawal Protocol Multivitamins 1 tab 05/28/23 09:00 09/25/23 08:39 Multivitamin 1 Tablet PO 1 tab DAILY MIRANDA Administration Nicotine 21 mg 05/30/23 10:30 06/02/23 08:39 Nicotine 21 Mg Patch TOP 21 mg DAILY MIRANDA Administration Potassium Chloride 40 meq 06/02/23 07:45 06/02/23 08:38 Potassium Chloride 20 Meq Tab PO 06/02/23 13:46 40 meq Q6H MIRANDA Administration Thiamine HCl 100 mg 05/28/23 09:00 06/02/23 08:39 Thiamine 100 Mg Tablet PO 100 mg DAILY MIRANDA Administration Objective Labs 06/02/23 04:12 06/02/23 04:12 Labs: Laboratory Results - last 24 hr 06/01/23 06/01/23 06/01/23 08:50 13:30 18:05 WBC RBC Hgb Hct MCV MCH MCHC RDW Plt Count Neut % (Auto) Lymph % (Auto) [place] % (Auto) Eos % (Auto) Baso % (Auto) Neut # (Auto) Lymph # (Auto) [place] # (Auto) Eos # (Auto) Baso # (Auto) Sodium Potassium 3.8 Chloride Carbon Dioxide BUN Creatinine Estimated GFR BUN/Creatinine Ratio Glucose Calcium Magnesium Lipase 613 H D 1237 H D 06/02/23 06/02/23 06/02/23 04:12 04:12 04:12 WBC 4.3 L RBC 2.98 L Hgb 10.8 L Hct 31.4 L MCV 105.5 H MCH 36.2 H MCHC 34.3 RDW 16.8 H Plt Count 122 L Neut % (Auto) 59.3 Lymph % (Auto) 28.0 [place] % (Auto) 10.5 Eos % (Auto) 1.7 L Baso % (Auto) 0.5 Neut # (Auto) 2500 Lymph # (Auto) 1200 [place] # (Auto) 500 Eos # (Auto) 100 Baso # (Auto) 0 Sodium 136 L Potassium 3.0 L Chloride 108 H Carbon Dioxide 18 L BUN 3 L Creatinine 0.47 L Estimated GFR > 60 BUN/Creatinine Ratio 6.4 Glucose 77 L Calcium 7.6 L Magnesium 1.8 Lipase 948 H Exam Vital Signs (past 8 hours): - 06/02/23 02:01 06/02/23 02:01 06/02/23 02:06 Temperature Pulse Rate 71 66 Respiratory Rate 20 19 Blood Pressure 112/63 Pulse Oximetry 95 94 Oxygen Delivery Method 06/02/23 03:00 06/02/23 03:00 06/02/23 03:01 Temperature Pulse Rate 59 L 59 L Respiratory Rate 16 16 Blood Pressure 100/67 Pulse Oximetry 94 94 Oxygen Delivery Method 06/02/23 04:00 06/02/23 04:00 06/02/23 05:01 Temperature 97.4 F L Pulse Rate 60 65 Respiratory Rate 16 21 Blood Pressure 93/67 Pulse Oximetry 94 93 Oxygen Delivery Method 06/02/23 05:01 06/02/23 05:14 06/02/23 04:00 Temperature Pulse Rate 62 Respiratory Rate 18 Blood Pressure 107/72 Pulse Oximetry 92 Oxygen Delivery Method Room Air 06/02/23 06:00 06/02/23 06:00 06/02/23 07:00 Temperature Pulse Rate 75 Respiratory Rate 25 H Blood Pressure 105/68 99/67 Pulse Oximetry 93 Oxygen Delivery Method 06/02/23 07:00 06/02/23 08:00 06/02/23 08:00 Temperature 98.3 F Pulse Rate 61 64 Respiratory Rate 18 36 H Blood Pressure 106/68 Pulse Oximetry 94 95 Oxygen Delivery Method 06/02/23 08:00 06/02/23 09:00 06/02/23 09:02 Temperature Pulse Rate 82 80 Respiratory Rate 28 H 22 Blood Pressure Pulse Oximetry 96 96 Oxygen Delivery Method Room Air 06/02/23 09:02 Temperature Pulse Rate Respiratory Rate Blood Pressure 112/68 Pulse Oximetry Oxygen Delivery Method Oxygen Delivery Method Room Air Oxygen Flow Rate 0 Narrative Exam Narrative: NAD. Awake and following commands. Assessment & Plan Assessment & Plan narrative: NEURO: # Alcohol withdrawal -- On precedex gtt -- Added librium therapy -- On thiamine and folic acid -- Titrate precedex to seek RASS goal -1 to 0 RESP: # Shortness of breath -- Appears hypervolemia based on CXR and I/O -- Agree with gentle diuresis -- Agree w/ echocardiogram -- Encourage early mobility : -- Cont gentle diuresis to seek net negative fluid balance -- High lytes goal -- Ordered magnesium 2 gram IV once -- Trend BMP ENDO: -- Goal BS < 180 -- ISS D/w bedside RN Time Spent With Patient Time with patient: 30 to 49 minutes with 50% spent counseling/coordinating care
[2023-06-02] MEDS: MAGNESIUM SULFATE 2 GM/50 ML PIGGYBACK IV (10:22)
--- NOTE | 2023-06-02 13:32 | PT.IIE ---
Current Diagnoses Alcohol dependence with withdrawal, unspecified (05/27/23) Medical History (Last Reviewed 05/28/23 @ 13:38 by Juan C Carlos DO) Alcohol use disorder Physical Therapy Inpatient Evaluation/Re-Eval M1 PT/OT-IP Prior Functional Status Start: 06/02/23 07:50 Freq: NEEDED Status: Active Protocol: Document 06/02/23 13:32 AW (Rec: 06/02/23 14:11 AW [id number]) Medical Review Prior Functional Status Medical History Reviewed Yes Communication Pt able to make needs known Mobility and Gait Per pt report, he was independent with mobility but admits to regular falls Activities of Daily Living and IADL's Pt states he was independent Prior Functional Level (Other details) Pt had paid assist for housekeeping. He denies that he had a caregiver. Social History Household Members other Living Arrangements House Number of Floors (Floors) Two Floors Number of Stairs To Enter/Railing? 4 ANETTE. Unknown if pt's bedroom is on order entry administrator or upstairs . Additional Social History Comment Per chart review, pt has a roommate. M2 PT-IP Current Condition Start: 06/02/23 07:50 Freq: NEEDED Status: Active Protocol: Document 06/02/23 13:32 AW (Rec: 06/02/23 14:11 AW [id number]) Physical Therapy Current Condition Current Condition Evaluation Date 06/02/23 Treatment Diagnosis alcohol withdrawal, seizure history, impaired mobility and gait Onset Date 05/27/23 M3 PT-IP Subjective Start: 06/02/23 07:50 Freq: NEEDED Status: Active Protocol: Document 06/02/23 13:32 AW (Rec: 06/02/23 14:11 AW [id number]) Subjective Physical Therapy Visit Type Type Initial Evaluation Visit Start Time 13:12 Visit Stop Time 13:32 Total Visit Minutes 20 Notes BP 117/73 HR 79 SpO2 95% on room air at rest. Physical Therapy Visit Comments Patient Comments Pt responds to direct questions but is very literal and tends to confuse his timeline. Speech is mumbly. Therapy Pain Assessment Pain When Pain Assessed During Mobility Pain Present Pain Present Denied Pain M4 PT-IP Mobility and Gait Start: 06/02/23 07:50 Freq: NEEDED Status: Active Protocol: Document 06/02/23 13:32 AW (Rec: 06/02/23 14:11 AW [id number]) PT-Bed Mobility Assessment Supine to Sit Supine to Sit Standby Assistance Sit to Supine Sit to Supine Standby Assistance Scooting Scooting to Edge of Bed Standby Assistance PT-Transfer Assessment Sit to and From Stand Sit to and from Stand Contact Guard Assistance, Minimal Assistance,1 Person Assistance,Use of Upper Extremities Equipment Transfer Assistive Device Gait Belt,Front Wheeled Walker Transfers Transfer Destination Bed,Chair Transfer Technique Stand Step Pivot Transfer Ability Level of Assist Moderate Assistance,1 Person Assistance,2 Person Assistance ,Use of Upper Extremities Comments Mobility Comments Pt was lying in bed as PT arrived. He agreed to mobilize . SBA for bed mobility. Min assist for sit to stand secondary to unsteadiness in initial standing and poor postural control. Pt uses FWW to ambulate 4 feet and transfer to chair with mod assist along the way due to tremulous lower extremities and ataxic pattern. Transfer back to bed (pt had just settled after being up in the chair this AM) was similar. Gait Assessment Gait Gait Assistance Required: Moderate Assistance,1 Person Assist,2 Person Assist Distance (Feet) 4 Assistive Devices Assistive Device Gait Belt,Front Wheeled Walker Gait Deviations General Gait Pattern Ataxic,Decreased Stride Length ,Decreased Feet Clearance, Flexed Trunk Factors Limiting Gait Function Factors Limiting Gait Function Decreased Strength,Difficulty Following Directions, Incoordination,Poor Balance, Poor Safety Awareness Comments Gait Comments Gait was ataxic with inconsistent foot placement and poor postural control, necessitating PT assist. Stair Climbing Assessment Comments Stair Climbing Comments Unsafe to assess PT-Balance Assessment Sitting Balance and Reactions Static Sitting Balance Ability Fair Dynamic Sitting Balance Ability Poor Standing Balance and Reactions Static Standing Balance Ability Poor Dynamic Standing Balance Ability Poor Device Used FWW M5 PT-IP Objective Assessments Start: 06/02/23 07:50 Freq: NEEDED Status: Active Protocol: Document 06/02/23 13:32 AW (Rec: 06/02/23 14:11 AW [id number]) Orientation Orientation/Cognition Level of Alertness Confusional State Orientation Name,Place Language Function Ability Garbled Speech Safety Awareness Decreased Safety Awareness Comments Pt oriented x 2. Speech was mumbled, coherent ~30% of the time with pt forming short sentences. He was able to follow one step directions for mobility but did not understand directions for MMT. Gross Range of Motion Upper Extremity ROM Assessment Within Functional Limits Lower Extremity ROM Assessment Within Functional Limits Strength Comments Strength Comments Unable to formally assess strength. Pt has functional ROM and greater than 3/5 strength in all planes UE and LE. Coordination Assessment Gross Coordination Gross Coordination Impaired Assessment Finger to Nose Test Severe Impairment Pronation/Supination Test Severe Impairment Foot Tapping Test Severe Impairment Heel on Schultz Test Severe Impairment Sensation Assessment Comments Sensation Comments Unable to assess secondary to cognition Muscle Tone Muscle Tone WNL Yes M6 PT-IP Treatment Start: 06/02/23 07:50 Freq: NEEDED Status: Active Protocol: Document 06/02/23 13:32 AW (Rec: 06/02/23 14:11 AW [id number]) Physical Therapy Treatment Education Education Provided Safety M7 PT-IP Assessment and Plan Start: 06/02/23 07:50 Freq: NEEDED Status: Active Protocol: Document 06/02/23 13:32 AW (Rec: 06/02/23 14:11 AW [id number]) PT Summary Assessment and Plan Potential Rehabilitation Potential Good Status of Condition at Evaluation Evolving Summary Impairments Strength,Balance,Coordination, Cognition,Bed Mobility, Transfers,Gait Assessment Summary Ridge is a 62 yo man seen for PT evaluation while admitted with alcohol withdrawal. PMH includes withdrawal seizures. PLOF is not entirely understood as pt is not a reliable historian in light of his acute confusion. He states he lives in a two story house with a roommate. He says he is independent at baseline but has some form of assist at home, likely for housekeeping. CLOF: Pt presents with strength, coordination, and balance impairments consistent with his withdrawal status. Depending on how soon he reaches medical stability, pt may benefit from SNF for daily rehab activities in a supervised 24/7 setting at discharge. He will require continued assessment as PT continues to work with him during his hospital stay. Ultimate discharge recommendation will depend on his progress with PT. Goals Bed Mobility Goal Independent Transfer Goal Independent,Front Wheeled Walker Gait Goal Independent,Front Wheel Walker Gait Distance 100 Other Goals - Pt climbs 4 steps with rail for safe home entry - Pt progresses transfers and gait to independent with LRAD or no AD Days to Meet Goals 10 Frequency of Treatment Frequency Of Treatment Once a Day Treatment Plan Physical Therapy Treatment Plan Bed Mobility Training,Transfer Training,Gait Training, Therapeutic Exercise,Balance Retraining,Discharge Planning, Hot or Cold Pack,Neuromuscular Re-ed,Coordination Retraining Other Recommendations and Next Treatment sit to stands, transfers, gait Focus with FWW as able Precautions Other Precautions seizure precautions, high falls risk Recommendations To Nursing Amount of Assist Needed 2 Person Assist Discharge Recommendations PT Discharge Recommendations SNF Rehab,Home vs SNF Equipment Needed for Home Before LRAD if unsafe without Discharge
--- NOTE | 2023-06-02 15:43 | CM.DPC ---
DCP Cont: Per MD, pt being weaned off pressors and transitioning to more PO meds and PT ordered for eval. Per PT, pt was able to participate in eval but remains weak and unsteady and anticipate he will progress but currently recommending SNF vs Home pending progress. SW met bedside with pt and he is much more alert today and SW explained role and pt currently states he does not plan on drinking or smoking cigarettes after he discharges but states he is not currently interested in ETOH treatment or resources and states he is aware of community resources if needed. Pt acknowledges how difficult and challenging it can be to remain sober and abstain from smoking and drinking alcohol. SW discussed pt's currently mobility and below baseline and inquired if he would be interested in SNF rehab if he does not improve as quickly as anticipated for discharge. Pt anticipates he will improve significantly in the next day or two for discharge home and states his son or a friend will transport him home. Pt acknowledges that he may not be as mobile as expected when stable for discharge and states he would possibly consider SNF but wants home. SW discussed his hx of ETOH and insurance might be a barrier to SNF. SW made initial referral to [facility] based on pt's insurance as a backup plan knowing his ETOH and [employer] are barriers. Plan: SW to follow closely for progress with PT for SNF vs Home and to confirm at d/c pt still declining any ETOH resources/tx. RICHARD Golden
[2023-06-02] MEDS: ACETAMINOPHEN 325 MG TABLET 650 MG PO (16:21)
[2023-06-02 16:39] LABS: HEMOLYSIS < 15 (0-50); Potassium 3.4 mmol/L (3.4-5.1)
[2023-06-03] VITALS (31 sets, daily range): BP systolic 100–146; BP diastolic 58–95; PULSE 99–151; RESP 15–33; TEMP 37.1–37.4; O2SAT 92–97
[2023-06-03 04:51] LABS: Add Manual Diff / Slide Review NO; Basophils Absolute Auto 100 /uL (0-100); Basophils Percent Auto 0.9 % (0-2); Eosinophils Absolute Auto 100 /uL (0-450); Eosinophils Percent Auto 1.2 % (2-4); Hematocrit 32.5 % (41-53); Hemoglobin 11.1 g/dL (13.5-17.5); Lymphocytes Absolute Auto 1600 /uL (1100-4500); Mean Corpuscular HGB Conc 34.3 % (30-36); Mean Corpuscular Hemoglobin 35.7 PG (26-34); Mean Corpuscular Volume 104.1 fL (80-100); Monocytes Absolute Auto 800 /uL (0-900); Monocytes Percent Auto 13.6 % (3-14); Neutrophils Absolute Auto 3400 /uL (1500-7000); Neutrophils Percent Auto 57.3 % (50-75); Platelet Count 187 X10^3/uL (150-400); Red Blood Cell Count 3.12 X10^6/uL (4.5-5.9); Red Cell Distribution Width 17.4 % (11.6-14.8); White Blood Cell Count 5.9 X10^3/uL (4.5-11.0)
[2023-06-03 05:07] LABS: BUN Creatinine Ratio 5.4 (6-22); Blood Urea Nitrogen 3 mg/dL (9-20); Calcium 8.2 mg/dL (8.4-10.2); Carbon Dioxide 25 mmol/L (22-32); Chloride 105 mmol/L (98-107); Estimated Glomerular Filt Rate > 60 mL/min (>60); Glucose 98 mg/dL (80-110); HEMOLYSIS < 15 (0-50); Magnesium 1.8 mg/dL (1.6-2.3); Potassium 3.8 mmol/L (3.4-5.1); Sodium 135 mmol/L (137-145)
[2023-06-03 05:51] LABS: Lipase 4322 U/L (23-300)
[2023-06-03] MEDS: POTASSIUM CHLORIDE 20 MEQ TAB 40 MEQ PO ×2 (08:10→16:55)
[2023-06-03] MEDS: NICOTINE 21 MG PATCH TOP (08:11)
[2023-06-03] MEDS: FOLIC ACID 1 MG TABLET PO (08:11)
[2023-06-03] MEDS: chlordiazePOXIDE 10 MG CAPSULE PO ×3 (08:11→20:32)
[2023-06-03] MEDS: HEPARIN 5,000 UNIT/ML VIAL 5000 UNIT SUBCUT ×2 (08:11→20:32)
[2023-06-03] MEDS: FAMOTIDINE 20 MG TABLET PO ×2 (08:11→20:32)
[2023-06-03] MEDS: MULTIVITAMIN 1 TABLET 1 TAB PO (08:11)
[2023-06-03] MEDS: THIAMINE 100 MG TABLET PO (08:12)
--- NOTE | 2023-06-03 08:25 | PM.PN.1 ---
Subjective Subjective Interval history: Weaned off Precedex last evening, doing well on Librium 10 TID. Awake and denies complaints. No hallucinations, chest pain or dyspnea. Tachycardic over night. Exam Vital Signs (past 8 hours): - 06/03/23 00:32 06/03/23 01:00 06/03/23 01:00 Temperature Pulse Rate 113 H 113 H Respiratory Rate 19 19 Blood Pressure 117/81 Pulse Oximetry 94 95 06/03/23 01:13 06/03/23 02:00 06/03/23 02:00 Temperature Pulse Rate 105 H 112 H Respiratory Rate 25 H 24 Blood Pressure 114/58 L Pulse Oximetry 97 93 06/03/23 02:20 06/03/23 03:00 06/03/23 03:00 Temperature Pulse Rate 107 H 116 H Respiratory Rate 19 27 H Blood Pressure 112/80 Pulse Oximetry 93 92 06/03/23 04:00 06/03/23 04:00 06/03/23 04:23 Temperature 99.4 F Pulse Rate 119 H 137 H Respiratory Rate 17 28 H Blood Pressure 100/60 Pulse Oximetry 92 92 06/03/23 05:00 06/03/23 05:00 06/03/23 05:14 Temperature Pulse Rate 113 H 123 H Respiratory Rate 19 20 Blood Pressure 146/95 H Pulse Oximetry 92 94 06/03/23 06:14 06/03/23 07:00 Temperature Pulse Rate 151 H 114 H Respiratory Rate 24 18 Blood Pressure Pulse Oximetry Oxygen Delivery Method Room Air Oxygen Flow Rate 0 Narrative Exam Narrative: NAD, normal speech and calm. Dischoveled. Atraumatic head, EOMI. Neck supple and midline trachea. Lungs CTA, normal rate and effort. Heart RRR, without murmur, gallop, or rub. Abdomen Soft, NT, ND No leg edema. No skin rash. Objective Labs 06/03/23 04:28 06/03/23 04:28 Labs: Laboratory Results - last 24 hr 06/02/23 06/03/23 06/03/23 16:15 04:28 04:28 WBC 5.9 RBC 3.12 L Hgb 11.1 L Hct 32.5 L MCV 104.1 H MCH 35.7 H MCHC 34.3 RDW 17.4 H Plt Count 187 Neut % (Auto) 57.3 Lymph % (Auto) 27.0 [place] % (Auto) 13.6 Eos % (Auto) 1.2 L Baso % (Auto) 0.9 Neut # (Auto) 3400 Lymph # (Auto) 1600 [place] # (Auto) 800 Eos # (Auto) 100 Baso # (Auto) 100 Sodium 135 L Potassium 3.4 3.8 Chloride 105 Carbon Dioxide 25 BUN 3 L Creatinine 0.56 L Estimated GFR > 60 BUN/Creatinine Ratio 5.4 L Glucose 98 Calcium 8.2 L Magnesium 1.8 Lipase 4322 H D [facility] Medical History Alcohol use disorder Social History household members: other Smoking Status: Current every day smoker alcohol intake: current Assessment & Plan Assessment & Plan narrative: 62 y/o M admitted for alcohol withdrawal, transferred to ICU for DT's requiring precedex infusion. 1. Acute metabolic encephalopathy with alcohol withdrawal and DTs, POA and much improved. -off precedex, continue Librium. -continue thiamine. 2. Tachycardia, new and active. -follow and consider repeat CXR. 3. Acute pancreatitis, POA and resolved. -advance diet and monitor. 4. Hypokalemia, new and resolved. ?- replace and monitor, telemetry ? 5. Hypomagnesemia, new and resolved. ?- Monitor. 6. Tobacco use disorder, POA and stable. -increased nicotine patch to 21mg from 7mg on 05/30 as smoke 2 pack/daily 7. Pancytopenia, POA and improved. ?- suspect due to EtOH use. continue to follow. 8. Pulmonary edema, new and active. -diurese and ECHO to assess LVEF. Dispo: Home in 2 days, PT eval. Time Spent With Patient Time with patient: 30 to 49 minutes with 50% spent counseling/coordinating care
--- NOTE | 2023-06-03 11:45 | PT.IPTN ---
Current Diagnoses Alcohol dependence with withdrawal, unspecified (05/27/23) Physical Therapy Treatment Note M2 PT-IP Current Condition Start: 06/02/23 07:50 Freq: NEEDED Status: Active Protocol: Document 06/02/23 13:32 AW (Rec: 06/02/23 14:11 AW [id number]) Physical Therapy Current Condition Current Condition Evaluation Date 06/02/23 Treatment Diagnosis alcohol withdrawal, seizure history, impaired mobility and gait Onset Date 05/27/23 M3 PT-IP Subjective Start: 06/02/23 07:50 Freq: NEEDED Status: Active Protocol: Document 06/03/23 12:23 AB (Rec: 06/03/23 12:46 AB [id number]) Subjective Physical Therapy Visit Type Type Treatment Note Visit Start Time 11:45 Visit Stop Time 12:18 Total Visit Minutes 33 Physical Therapy Visit Comments Patient Comments Pt presents in bed and is agreeable to PT session this morning. He denies having any pain or other symptoms. Therapy Pain Assessment Pain When Pain Assessed At Rest Pain Present Pain Present Denied Pain M4 PT-IP Mobility and Gait Start: 06/02/23 07:50 Freq: NEEDED Status: Active Protocol: Document 06/03/23 12:23 AB (Rec: 06/03/23 12:46 AB [id number]) PT-Bed Mobility Assessment Rolling Type of Rolling Roll to Right,Roll to Left Level of Assist Standby Assistance Supine to Sit Supine to Sit Standby Assistance Sit to Supine Sit to Supine Standby Assistance Scooting Scooting to Edge of Bed Minimal Assistance PT-Transfer Assessment Sit to and From Stand Sit to and from Stand Moderate Assistance,1 Person Assistance,Use of Upper Extremities Equipment Transfer Assistive Device Gait Belt,Front Wheeled Walker Transfers Transfer Destination Bed Transfer Ability Level of Assist Moderate Assistance,1 Person Assistance Comments Mobility Comments Pt requires modA x1 to perform STS and maintain standing position due to retro-leaning and pt having poor proprioception. The pt also demonstrates difficulty following some commands, specifically to correct body position. At end of session, the pt returned to bed with all needs met and call light within reach. RN was notified of findings. Gait Assessment Factors Limiting Gait Function Factors Limiting Gait Function Decreased Activity Tolerance, Decreased Strength,Difficulty Following Directions, Incoordination,Poor Balance, Poor Safety Awareness Comments Gait Comments Unable to take forward steps, but pt is able to take lateral steps to left side with modA using FWW and max verbal and visual cues due to poor following of commands. PT-Balance Assessment Sitting Balance and Reactions Static Sitting Balance Ability Fair Dynamic Sitting Balance Ability Poor Standing Balance and Reactions Static Standing Balance Ability Poor Dynamic Standing Balance Ability Poor Device Used FWW Comments Other Balance Tests/Deviations/Treatment Pt has x1 LOB in sitting which : pt was able to slef correct, albeit slowly. As detailed above, the pt retro leans when in standing and has x 2 instances of LOB while standing, requiring modA x1 to recover and modA to maintain standing balance. M5 PT-IP Objective Assessments Start: 06/02/23 07:50 Freq: NEEDED Status: Active Protocol: Document 06/02/23 13:32 AW (Rec: 06/02/23 14:11 AW [id number]) Orientation Orientation/Cognition Level of Alertness Confusional State Orientation Name,Place Language Function Ability Garbled Speech Safety Awareness Decreased Safety Awareness Comments Pt oriented x 2. Speech was mumbled, coherent ~30% of the time with pt forming short sentences. He was able to follow one step directions for mobility but did not understand directions for MMT. Gross Range of Motion Upper Extremity ROM Assessment Within Functional Limits Lower Extremity ROM Assessment Within Functional Limits Strength Comments Strength Comments Unable to formally assess strength. Pt has functional ROM and greater than 3/5 strength in all planes UE and LE. Coordination Assessment Gross Coordination Gross Coordination Impaired Assessment Finger to Nose Test Severe Impairment Pronation/Supination Test Severe Impairment Foot Tapping Test Severe Impairment Heel on Schultz Test Severe Impairment Sensation Assessment Comments Sensation Comments Unable to assess secondary to cognition Muscle Tone Muscle Tone WNL Yes M6 PT-IP Treatment Start: 06/02/23 07:50 Freq: NEEDED Status: Active Protocol: Document 06/03/23 12:23 AB (Rec: 06/03/23 12:46 AB [id number]) Physical Therapy Treatment Exercises Exercises Seated Knee Flexion/Extension Education Education Provided Safety Brace Education Patient Other Treatments Other Treatment Performed LAQs and seated marching x 10 ea, STS x 3 with FWW modA x 1 and max VCs for hand placement and sequencing. M7 PT-IP Assessment and Plan Start: 06/02/23 07:50 Freq: NEEDED Status: Active Protocol: Document 06/03/23 12:23 AB (Rec: 06/03/23 12:46 AB [id number]) PT Summary Assessment and Plan Summary Impairments Strength,Balance,Coordination, Cognition,Bed Mobility, Transfers,Gait,Activity Tolerance Progress Towards Goals Slow Progress - Other Assessment Summary The pt demonstrates slow progress towards achievement of goals. This session, the pt required modA to to perform STS and maintain standing, as well as mod-maxA to maintaining standing balance due to poor proprioception, poor balance and poor safety awareness. He also requires max VCs at times to perform lateral side steps , which he demonstrates ataxia with, as demonstrated by difficulty following commands. The pt continues to benefit from skilled PT to improve these impairments and help him return to his highest level of function. PT continues to recommend discharge to SNF due to his current level of function. Goals Bed Mobility Goal Independent Transfer Goal Independent,Front Wheeled Walker Gait Goal Independent,Front Wheel Walker Gait Distance 100 Other Goals - Pt climbs 4 steps with rail for safe home entry - Pt progresses transfers and gait to independent with LRAD or no AD Days to Meet Goals 10 Frequency of Treatment Frequency Of Treatment Once a Day Treatment Plan Physical Therapy Treatment Plan Bed Mobility Training,Transfer Training,Gait Training, Therapeutic Exercise,Balance Retraining,Post Op Education, Discharge Planning,Hot or Cold Pack,Neuromuscular Re-ed, Coordination Retraining,Manual Therapy Other Recommendations and Next Treatment STS, transfers, gait training, Focus balance training, neuromuscular re-ed Precautions Other Precautions seizure precautions, high falls risk Recommendations To Nursing Amount of Assist Needed 2 Person Assist Discharge Recommendations PT Discharge Recommendations SNF Rehab,Home vs SNF Equipment Needed for Home Before LRAD Discharge
--- NOTE | 2023-06-03 16:45 | CM.DPC ---
DCP Continued: Per CM Business Services Analyst Melissa, no beds for [facility] [place] available at this time. Per hospitalist, patient expected to be ready to d/c 06/05. PEARL HAND entered room and introduced self and role. Patient accompanied by friend Albino(maybe Twan?) at bedside. PEARL HAND assisted patient in finding bedside phone and plugging in personal phone. patient gave verbal agreement to speak in front of friend. re: d/c plan. Patient in agreement to send ref to [facility] in [place] for rehab. Patient would prefer home but understands needs to get stronger. Patient and friend had medical questions, PEARL HAND acted within area of competence and referred them to RN. Patient agreed in wanting to d/c to [facility] for rehab. Plan: PEARL HAND will send out ref to Susan at [facility] tomorrow in the morning. CM team will continue to follow closely. RICHARD Glez
[2023-06-03] MEDS: HALOPERIDOL 5 MG/ML VIAL IV (16:55)
--- NOTE | 2023-06-03 19:18 | PC.NURSE ---
pt has had increasing restlessness this shift; he was given a 1x dose of haldol to good effect; he had been frequently attempting to get oob but has settled since the haldol; he states that he has no plans to resume smoking or drinking and wants to go to rehab for PT; he had a friend come visit
[2023-06-04] VITALS (29 sets, daily range): BP systolic 108–122; BP diastolic 70–85; PULSE 98–137; RESP 13–30; TEMP 36.2–38.4; O2SAT 94–96
[2023-06-04 05:20] LABS: Add Manual Diff / Slide Review NO; Basophils Absolute Auto 0 /uL (0-100); Basophils Percent Auto 0.7 % (0-2); Eosinophils Absolute Auto 100 /uL (0-450); Eosinophils Percent Auto 1.1 % (2-4); Hematocrit 34.3 % (41-53); Hemoglobin 11.6 g/dL (13.5-17.5); Lymphocytes Absolute Auto 1400 /uL (1100-4500); Lymphocytes Percent Auto 21.5 % (25-40); Mean Corpuscular HGB Conc 33.8 % (30-36); Mean Corpuscular Hemoglobin 35.5 PG (26-34); Monocytes Absolute Auto 1100 /uL (0-900); Monocytes Percent Auto 17.3 % (3-14); Neutrophils Absolute Auto 3800 /uL (1500-7000); Neutrophils Percent Auto 59.4 % (50-75); Platelet Count 226 X10^3/uL (150-400); Red Blood Cell Count 3.26 X10^6/uL (4.5-5.9); Red Cell Distribution Width 16.9 % (11.6-14.8); White Blood Cell Count 6.3 X10^3/uL (4.5-11.0)
[2023-06-04 05:29] LABS: Calcium 8.9 mg/dL (8.4-10.2); Carbon Dioxide 24 mmol/L (22-32); Chloride 101 mmol/L (98-107); Estimated Glomerular Filt Rate > 60 mL/min (>60); Glucose 104 mg/dL (80-110); HEMOLYSIS < 15 (0-50); Potassium 3.7 mmol/L (3.4-5.1); Sodium 135 mmol/L (137-145)
[2023-06-04 05:33] LABS: BUN Creatinine Ratio 3.8 (6-22); Blood Urea Nitrogen 2 mg/dL (9-20)
--- NOTE | 2023-06-04 08:50 | PM.PN.1 ---
Subjective Subjective Interval history: He is still encephalopathic, but generally more calm. Can not really answer question very well. Denies pain or hallucination. Exam Vital Signs (past 8 hours): - 06/04/23 07:57 Pulse Rate 114 H Respiratory Rate 20 Blood Pressure 122/85 Pulse Oximetry 94 Oxygen Flow Rate 0 Oxygen Delivery Method Room Air Oxygen Flow Rate 0 Narrative Exam Narrative: NAD, shaky and anxious. Still confused but better. Atraumatic head, EOMI. Neck supple and midline trachea. Lungs CTA, normal rate and effort. Heart RRR, without murmur, gallop, or rub. Abdomen Soft, NT, ND No leg edema. No skin rash. Tremor Objective Labs 06/04/23 04:48 06/04/23 04:48 Labs: Laboratory Results - last 24 hr 06/04/23 06/04/23 04:48 04:48 WBC 6.3 RBC 3.26 L Hgb 11.6 L Hct 34.3 L MCV 105.0 H MCH 35.5 H MCHC 33.8 RDW 16.9 H Plt Count 226 Neut % (Auto) 59.4 Lymph % (Auto) 21.5 L [place] % (Auto) 17.3 H Eos % (Auto) 1.1 L Baso % (Auto) 0.7 Neut # (Auto) 3800 Lymph # (Auto) 1400 [place] # (Auto) 1100 H Eos # (Auto) 100 Baso # (Auto) 0 Sodium 135 L Potassium 3.7 Chloride 101 Carbon Dioxide 24 BUN 2 L Creatinine 0.53 L Estimated GFR > 60 BUN/Creatinine Ratio 3.8 L Glucose 104 Calcium 8.9 [facility] Medical History Alcohol use disorder Social History household members: other Smoking Status: Current every day smoker alcohol intake: current Assessment & Plan Assessment & Plan narrative: 62 y/o M admitted for alcohol withdrawal, transferred to ICU for DT's requiring precedex infusion. 1. Acute metabolic encephalopathy with alcohol withdrawal and DTs, improving -came off Precedex early 06/03. -continue thiamine. -Added Librium PO TID 06/02. -required Haldol 06/03 once for agitation. 2. Acute pancreatitis, POA and improving -advance diet and monitor. -monitor for abdomen pain. 3. Hypokalemia, new and active. ?- replace and monitor, telemetry ?- replace Mg as noted below. 4. Hypomagnesemia, new and active. ?- continue to follow and replace 5. Tobacco use disorder, POA. -increased nicotine patch to 21mg from 7mg on 05/30 as smoke 2 pack/daily 6. Pancytopenia, POA and improving. ?- suspect due to EtOH use. continue to follow. 7. Pulmonary edema, new and improved. -diurese and ECHO to assess LVEF. -ECHO read pending. Dispo: Home vs SNF in 2 days. PT eval ordered. Time Spent With Patient Time with patient: 30 to 49 minutes with 50% spent counseling/coordinating care
[2023-06-04] MEDS: NICOTINE 21 MG PATCH TOP (08:58)
[2023-06-04] MEDS: MULTIVITAMIN 1 TABLET 1 TAB PO (08:59)
[2023-06-04] MEDS: FAMOTIDINE 20 MG TABLET PO ×2 (08:59→20:18)
[2023-06-04] MEDS: HEPARIN 5,000 UNIT/ML VIAL 5000 UNIT SUBCUT ×2 (08:59→20:18)
[2023-06-04] MEDS: chlordiazePOXIDE 10 MG CAPSULE PO (08:59)
[2023-06-04] MEDS: THIAMINE 100 MG TABLET PO (08:59)
[2023-06-04] MEDS: POTASSIUM CHLORIDE 20 MEQ TAB 40 MEQ PO ×2 (08:59→16:29)
[2023-06-04] MEDS: FOLIC ACID 1 MG TABLET PO (09:18)
--- NOTE | 2023-06-04 09:18 | PC.NURSE ---
Addendum entered by Rica Blanton R.N. 06/04/23 18:26: nava had a few sips of his shake for dinner. Addendum entered by Rica Blanton R.N. 06/04/23 17:52: afebrile, pt still coughing, HR 130's, notified provider Addendum entered by Rica Blanton R.N. 06/04/23 16:46: Temp was in the 98F orally, the 101.1 might have been a mistake, considering his temp went down very fast. Addendum entered by Rica Blantno R.N. 06/04/23 14:39: Friend Reinaldo would like me to document that the patient has had multiple falls in the past and had hx of concussion. Addendum entered by Rica Blanton R.N. 06/04/23 13:05: pt still hallucinating, not climbing out of bed, ciwa 9, provider ok with not giving ativan. HR 130's. Addendum entered by Rica Blanton R.N. 06/04/23 11:13: pt ciwa 12, pt's HR 130's, still hallucinating and trying to get out bed. pt is more fidgety than this morning. Original Note: provider aware ciwa is 8 and patient is hallucinating. no ativan for now per provider and just continue to monitor. he said his food has bugs. pt denied pain.
[2023-06-04] MEDS: LORazepam 2 MG/ML INJ IV ×2 (11:08→22:25)
[2023-06-04] MEDS: SODIUM CHLORIDE 0.9% 1,000 ML 100 ML IV ×2 (13:15→20:54)
--- NOTE | 2023-06-04 13:46 | CM.DPC ---
DCP Continued: WASH MILL OPERATOR reviewed EMR. CM Edger Technician Melissa sent off initial referral information to [facility] for review. Per RN, patient currently experiencing visual hallucinations at this time. Current CIWA is 9 due to muscle tremors, agitations, and moderately severe hallucinations. This WASH MILL OPERATOR decided it may be inappropriate to continue d/c planning process at this time, and will hold off until patient experiences a reduction in hallucinations. Plan: [facility] reviewing at this time. CM team will continue to follow closely for d/c planning/DEBRA assessment. RICHARD Glez
[2023-06-04] MEDS: chlordiazePOXIDE 25 MG CAPSULE PO ×2 (14:43→20:17)
--- NOTE | 2023-06-04 15:48 | PT-IP ANOTE ---
Per RN pt is not appropriate for PT at this time due to withdrawal symptoms. PT will check back in with pt tomorrow.
[2023-06-04] MEDS: ACETAMINOPHEN 325 MG TABLET 650 MG PO (16:16)
[2023-06-05] VITALS: BP 124/92; PULSE 116; RESP 22; TEMP 36.8; O2SAT 91
[2023-06-05 04:00] VITALS: BP 122/87; PULSE 107; RESP 16; TEMP 36.7; O2SAT 99
[2023-06-05 04:40] LABS: Add Manual Diff / Slide Review NO; Basophils Absolute Auto 100 /uL (0-100); Basophils Percent Auto 1.2 % (0-2); Eosinophils Absolute Auto 100 /uL (0-450); Hematocrit 37.2 % (41-53); Hemoglobin 12.3 g/dL (13.5-17.5); Lymphocytes Absolute Auto 1500 /uL (1100-4500); Lymphocytes Percent Auto 28.3 % (25-40); Mean Corpuscular Hemoglobin 34.6 PG (26-34); Mean Corpuscular Volume 104.9 fL (80-100); Monocytes Absolute Auto 800 /uL (0-900); Monocytes Percent Auto 15.3 % (3-14); Neutrophils Absolute Auto 2900 /uL (1500-7000); Neutrophils Percent Auto 53.2 % (50-75); Platelet Count 283 X10^3/uL (150-400); Red Blood Cell Count 3.55 X10^6/uL (4.5-5.9); Red Cell Distribution Width 17.3 % (11.6-14.8); White Blood Cell Count 5.4 X10^3/uL (4.5-11.0)
[2023-06-05 05:01] LABS: BUN Creatinine Ratio 5.8 (6-22); Blood Urea Nitrogen 3 mg/dL (9-20); Calcium 9.1 mg/dL (8.4-10.2); Carbon Dioxide 25 mmol/L (22-32); Chloride 102 mmol/L (98-107); Estimated Glomerular Filt Rate > 60 mL/min (>60); Glucose 94 mg/dL (80-110); HEMOLYSIS < 15 (0-50); Potassium 4.1 mmol/L (3.4-5.1); Sodium 137 mmol/L (137-145)
[2023-06-05] MEDS: SODIUM CHLORIDE 0.9% 1,000 ML 100 ML IV (06:54)
[2023-06-05 10:15] VITALS: BP 116/88; PULSE 110; RESP 20; TEMP 37.2; O2SAT 95
[2023-06-05] MEDS: HEPARIN 5,000 UNIT/ML VIAL 5000 UNIT SUBCUT ×2 (10:34→21:48)
[2023-06-05] MEDS: POTASSIUM CHLORIDE 20 MEQ TAB 40 MEQ PO ×2 (10:35→16:50)
[2023-06-05] MEDS: MULTIVITAMIN 1 TABLET 1 TAB PO (10:36)
[2023-06-05] MEDS: NICOTINE 21 MG PATCH TOP (10:36)
[2023-06-05] MEDS: THIAMINE 100 MG TABLET PO (10:37)
[2023-06-05] MEDS: FAMOTIDINE 20 MG TABLET PO ×2 (10:37→21:48)
[2023-06-05] MEDS: chlordiazePOXIDE 25 MG CAPSULE PO ×3 (10:37→21:48)
[2023-06-05] MEDS: FOLIC ACID 1 MG TABLET PO (10:50)
[2023-06-05 11:07] LABS: Procalcitonin 0.09 ng/mL (<0.5)
--- NOTE | 2023-06-05 11:35 | DI.RAD.S_ITS ---
PROCEDURE: XR CHEST 1V INDICATIONS: cough TECHNIQUE: One view of the chest was acquired. COMPARISON: [facility], CR, XR CHEST 1V, 06/01/2023, 18:30. FINDINGS: Surgical changes and devices: None. Lungs and pleura: Previously seen interstitial and right perihilar opacities have significantly decreased. No pleural effusions or pneumothorax. Mediastinum: Mediastinal contours appear normal. Heart size is likely within normal limits. Bones and chest wall: No suspicious bony lesions. Overlying soft tissues appear unremarkable. IMPRESSION: Previously seen interstitial and right perihilar opacities have decreased when compared to the radiographs from 06/01/2023. on 06/05/2023 at 12:29 Approved by: Gen Fam M.D. on 06/05/2023 at 12:29
[2023-06-05 13:31] LABS: Adenovirus Not Detected (Not Detect); Coronavirus 229E Not Detected (Not Detect); Coronavirus HKU1 Not Detected (Not Detect); Coronavirus NL 63 Not Detected (Not Detect); Coronavirus OC43 Not Detected (Not Detect); Human Metapneumovirus Not Detected (Not Detect); SARS- CoV-2 Not Detected (Not Detecte)
[2023-06-05 13:32] LABS: B. parapertussis Not Detected (Not Detecte); Bordetella pertussis Not Detected (Not Detecte); Chlamydophila pneumoniae Not Detected (Not Detect); Human Rhinovirus/Enterovirus Not Detected (Not Detect); Influenza B Not Detected (Not Detect); Mycoplasma pneumoniae Not Detected (Not Detect); Parainfluenza Virus 1 Not Detected (Not Detect); Parainfluenza Virus 2 Not Detected (Not Detect); Parainfluenza Virus 3 Not Detected (Not Detect); Parainfluenza Virus 4 Not Detected (Not Detect); Respiratory Syncytial Virus Not Detected (Not Detect)
--- NOTE | 2023-06-05 13:35 | PT.IPTN ---
Current Diagnoses Alcohol dependence with withdrawal, unspecified (05/27/23) Physical Therapy Treatment Note M2 PT-IP Current Condition Start: 06/02/23 07:50 Freq: NEEDED Status: Active Protocol: Document 06/02/23 13:32 AW (Rec: 06/02/23 14:11 AW [id number]) Physical Therapy Current Condition Current Condition Evaluation Date 06/02/23 Treatment Diagnosis alcohol withdrawal, seizure history, impaired mobility and gait Onset Date 05/27/23 M3 PT-IP Subjective Start: 06/02/23 07:50 Freq: NEEDED Status: Active Protocol: Document 06/05/23 13:58 TS (Rec: 06/05/23 14:11 TS [id number]) Subjective Physical Therapy Visit Type Type Treatment Note Visit Start Time 13:35 Visit Stop Time 13:57 Total Visit Minutes 22 Number of CHEF Visits 1 Physical Therapy Visit Comments Patient Comments Pt found resting in bed, soft spoken, mumbling voice, agreeable to PT. M4 PT-IP Mobility and Gait Start: 06/02/23 07:50 Freq: NEEDED Status: Active Protocol: Document 06/05/23 13:58 TS (Rec: 06/05/23 14:11 TS [id number]) PT-Bed Mobility Assessment Rolling Level of Assist Moderate Assistance,1 Person Assistance Supine to Sit Supine to Sit Moderate Assistance,1 Person Assistance Sit to Supine Sit to Supine Maximum Assistance,1 Person Assistance Scooting Scooting to Edge of Bed Minimal Assistance PT-Transfer Assessment Sit to and From Stand Sit to and from Stand Maximum Assistance,1 Person Assistance,Use of Upper Extremities Equipment Transfer Assistive Device Gait Belt,Front Wheeled Walker Comments Mobility Comments Supine to sit HOB elevated ModA for uprighting trunk, cuees provided for BUE support , pt required Min-ModA for maintaining sitting balance. Pt scooted to EOB [place] with tactile cues for use of handrails. Sit to stand x5 MaxA with FWW, pt has a heavy retrolean, cues provided for weight forward and feet underneath him, pt very weak and unsteady. Sit to supine MaxA for LEs and trunk repositioning in bed, pt scooted to HOB MaxA x2. Pt was left in bed, all needs met. Gait Assessment Comments Gait Comments Could not ambulate this session Stair Climbing Assessment Comments Stair Climbing Comments Unsafe to assess PT-Balance Assessment Sitting Balance and Reactions Static Sitting Balance Ability Fair Dynamic Sitting Balance Ability Poor Standing Balance and Reactions Static Standing Balance Ability Poor Dynamic Standing Balance Ability Poor Device Used FWW M5 PT-IP Objective Assessments Start: 06/02/23 07:50 Freq: NEEDED Status: Active Protocol: Document 06/02/23 13:32 AW (Rec: 06/02/23 14:11 AW [id number]) Orientation Orientation/Cognition Level of Alertness Confusional State Orientation Name,Place Language Function Ability Garbled Speech Safety Awareness Decreased Safety Awareness Comments Pt oriented x 2. Speech was mumbled, coherent ~30% of the time with pt forming short sentences. He was able to follow one step directions for mobility but did not understand directions for MMT. Gross Range of Motion Upper Extremity ROM Assessment Within Functional Limits Lower Extremity ROM Assessment Within Functional Limits Strength Comments Strength Comments Unable to formally assess strength. Pt has functional ROM and greater than 3/5 strength in all planes UE and LE. Coordination Assessment Gross Coordination Gross Coordination Impaired Assessment Finger to Nose Test Severe Impairment Pronation/Supination Test Severe Impairment Foot Tapping Test Severe Impairment Heel on Schultz Test Severe Impairment Sensation Assessment Comments Sensation Comments Unable to assess secondary to cognition Muscle Tone Muscle Tone WNL Yes M6 PT-IP Treatment Start: 06/02/23 07:50 Freq: NEEDED Status: Active Protocol: Document 06/03/23 12:23 AB (Rec: 06/03/23 12:46 AB [id number]) Physical Therapy Treatment Exercises Exercises Seated Knee Flexion/Extension Education Education Provided Safety Brace Education Patient Other Treatments Other Treatment Performed LAQs and seated marching x 10 ea, STS x 3 with FWW modA x 1 and max VCs for hand placement and sequencing. M7 PT-IP Assessment and Plan Start: 06/02/23 07:50 Freq: NEEDED Status: Active Protocol: Document 06/05/23 13:58 TS (Rec: 06/05/23 14:11 TS [id number]) PT Summary Assessment and Plan Potential Rehabilitation Potential Good Summary Impairments Strength,Balance,Coordination, Cognition,Bed Mobility, Transfers,Gait,Activity Tolerance Progress Towards Goals Slow Progress - Other Assessment Summary Ridge continues to make slow progress with his mobility. He is requiring increased assist for bed mobility to ModA-MaxA. He can follow single step instructions well, he requires max cueing for all mobility. He performed sit to stand x5 w/FWW, has heavy retrolean and braces back of LEs against bed to assist in standing. He remains difficult to understand due to mumbling voice but can make needs known(pt requested the remote) . PT is recommending SNF at this time to progress bed mobility, transfers and gait. Goals Bed Mobility Goal Independent Transfer Goal Independent,Front Wheeled Walker Gait Goal Independent,Front Wheel Walker Gait Distance 100 Other Goals - Pt climbs 4 steps with rail for safe home entry - Pt progresses transfers and gait to independent with LRAD or no AD Days to Meet Goals 10 Frequency of Treatment Frequency Of Treatment Once a Day Treatment Plan Physical Therapy Treatment Plan Bed Mobility Training,Transfer Training,Gait Training, Therapeutic Exercise,Balance Retraining,Post Op Education, Discharge Planning,Hot or Cold Pack,Neuromuscular Re-ed, Coordination Retraining,Manual Therapy Other Recommendations and Next Treatment STS, transfers, gait training, Focus balance training, neuromuscular re-ed Precautions Other Precautions seizure precautions, high falls risk Recommendations To Nursing Amount of Assist Needed 2 Person Assist Discharge Recommendations PT Discharge Recommendations SNF Rehab Equipment Needed for Home Before LRAD Discharge
[2023-06-05 14:00] VITALS: BP 100/73; PULSE 98; RESP 16; TEMP 37.1; O2SAT 95
--- NOTE | 2023-06-05 17:36 | SLP.IPNOTE ---
MANUFACTURING PROJECT MANAGER attempted initiating swallow evaluation 2x (approx 1500 and 1725). Unable to rouse pt with verbal cues, tactile cues, repositioning, lights on/off, sternal rubs. Unable to complete swallow evaluation at this time. Based on observed level of alertness, recommend nothing by mouth until alertness increases and MANUFACTURING PROJECT MANAGER will attempt eval in AM.
[2023-06-05 17:57] VITALS: BP 132/74; PULSE 101; RESP 20; O2SAT 91
--- NOTE | 2023-06-05 18:35 | PM.PN.1 ---
Subjective Subjective Interval history: Patient sleeping. Not awakened. CXR with improved interstitial and perihilar opacities and resp PCR normal today. Exam Vital Signs (past 8 hours): - 06/05/23 14:00 06/05/23 17:57 Temperature 98.8 F Pulse Rate 98 H 101 H Respiratory Rate 16 20 Blood Pressure 100/73 132/74 Pulse Oximetry 95 91 Oxygen Flow Rate 0 0 Oxygen Delivery Method Room Air Oxygen Flow Rate 0 Narrative Exam Narrative: NAD Atraumatic head, EOMI. Neck supple and midline trachea. Lungs CTA, normal rate and effort. Heart RRR, without murmur, gallop, or rub. Abdomen Soft, NT, ND No leg edema. No skin rash. Tremor Objective Labs 06/05/23 04:31 06/05/23 04:31 Labs: Laboratory Results - last 24 hr 06/05/23 06/05/23 06/05/23 04:31 04:31 04:31 WBC 5.4 RBC 3.55 L Hgb 12.3 L Hct 37.2 L MCV 104.9 H MCH 34.6 H MCHC 33.0 RDW 17.3 H Plt Count 283 Neut % (Auto) 53.2 Lymph % (Auto) 28.3 [place] % (Auto) 15.3 H Eos % (Auto) 2.0 Baso % (Auto) 1.2 Neut # (Auto) 2900 Lymph # (Auto) 1500 [place] # (Auto) 800 Eos # (Auto) 100 Baso # (Auto) 100 Sodium 137 Potassium 4.1 Chloride 102 Carbon Dioxide 25 BUN 3 L Creatinine 0.52 L Estimated GFR > 60 BUN/Creatinine Ratio 5.8 L Glucose 94 Calcium 9.1 Procalcitonin 0.09 Chlamy pneumoniae PCR Adenovirus (PCR) B. pertussis DNA (PCR) B.parapertussis DNA PCR Coronavirus OC43 (PCR) Coronavirus HKU1 (PCR) Coronavirus 229E (PCR) SARS-CoV-2 (PCR) Coronavirus NL63 (PCR) Human Metapneumovir PCR Influenza Type B (PCR) M. pneumoniae (PCR) Parainfluenza 1 (PCR) Parainfluenza 2 (PCR) Parainfluenza 3 (PCR) Parainfluenza 4 (PCR) RSV (PCR) Entero/Rhino (PCR) 06/05/23 11:13 WBC RBC Hgb Hct MCV MCH MCHC RDW Plt Count Neut % (Auto) Lymph % (Auto) [place] % (Auto) Eos % (Auto) Baso % (Auto) Neut # (Auto) Lymph # (Auto) [place] # (Auto) Eos # (Auto) Baso # (Auto) Sodium Potassium Chloride Carbon Dioxide BUN Creatinine Estimated GFR BUN/Creatinine Ratio Glucose Calcium Procalcitonin Chlamy pneumoniae PCR Not detected Adenovirus (PCR) Not detected B. pertussis DNA (PCR) Not detected B.parapertussis DNA PCR Not detected Coronavirus OC43 (PCR) Not detected Coronavirus HKU1 (PCR) Not detected Coronavirus 229E (PCR) Not detected SARS-CoV-2 (PCR) Not detected Coronavirus NL63 (PCR) Not detected Human Metapneumovir PCR Not detected Influenza Type B (PCR) Not detected M. pneumoniae (PCR) Not detected Parainfluenza 1 (PCR) Not detected Parainfluenza 2 (PCR) Not detected Parainfluenza 3 (PCR) Not detected Parainfluenza 4 (PCR) Not detected RSV (PCR) Not detected Entero/Rhino (PCR) Not detected PFSH Medical History Alcohol use disorder Social History household members: other Smoking Status: Current every day smoker alcohol intake: current Assessment & Plan Assessment & Plan narrative: 62 y/o M admitted for alcohol withdrawal, transferred to ICU for DT's requiring precedex infusion. 1. Acute metabolic encephalopathy with alcohol withdrawal and DTs, improving -came off Precedex early 06/03. -continue thiamine. -Added Librium PO TID 06/02. -required Haldol 06/03 once for agitation. -tapering librium 2. Acute pancreatitis, POA and improving -advance diet and monitor. -monitor for abdomen pain. 3. Hypokalemia, new and active. ?- replace and monitor, telemetry ?- replace Mg as noted below. 4. Hypomagnesemia, new and active. ?- continue to follow and replace 5. Tobacco use disorder, POA. -increased nicotine patch to 21mg from 7mg on 05/30 as smoke 2 pack/daily 6. Pancytopenia, POA and improving. ?- suspect due to EtOH use. continue to follow. 7. HFrEF, new in mild exacerbation -diurese and ECHO to assess LVEF. -echo with EF 30-35%, severe LV hypokinesis, mod left pleural effusion -start aspirin, metoprolol and losartan Dispo: Home vs SNF in 2 days. PT eval ordered. Time Spent With Patient Time with patient: 30 to 49 minutes with 50% spent counseling/coordinating care
[2023-06-05 20:50] VITALS: BP 105/77; PULSE 96; RESP 18; TEMP 36.5; O2SAT 94
[2023-06-05] MEDS: METOPROLOL IR 25 MG TABLET PO (21:48)
[2023-06-06] VITALS (26 sets, daily range): BP systolic 87–110; BP diastolic 58–70; PULSE 76–100; RESP 14–54; TEMP 36.4–36.7; O2SAT 82–97
[2023-06-06] MEDS: POTASSIUM CHLORIDE 20 MEQ TAB 40 MEQ PO ×2 (08:35→18:02)
[2023-06-06] MEDS: chlordiazePOXIDE 25 MG CAPSULE PO ×2 (08:35→21:04)
[2023-06-06] MEDS: HEPARIN 5,000 UNIT/ML VIAL 5000 UNIT SUBCUT ×2 (08:35→21:04)
[2023-06-06] MEDS: FOLIC ACID 1 MG TABLET PO (08:36)
[2023-06-06] MEDS: FAMOTIDINE 20 MG TABLET PO ×2 (08:36→21:04)
[2023-06-06] MEDS: ASPIRIN EC 81 MG TABLET PO (08:36)
[2023-06-06] MEDS: MULTIVITAMIN 1 TABLET 1 TAB PO (08:36)
[2023-06-06] MEDS: THIAMINE 100 MG TABLET PO (08:36)
[2023-06-06] MEDS: NICOTINE 21 MG PATCH TOP (08:37)
--- NOTE | 2023-06-06 12:11 | PT.IPTN ---
Current Diagnoses Alcohol dependence with withdrawal, unspecified (05/27/23) Physical Therapy Treatment Note M2 PT-IP Current Condition Start: 06/02/23 07:50 Freq: NEEDED Status: Active Protocol: Document 06/02/23 13:32 AW (Rec: 06/02/23 14:11 AW [id number]) Physical Therapy Current Condition Current Condition Evaluation Date 06/02/23 Treatment Diagnosis alcohol withdrawal, seizure history, impaired mobility and gait Onset Date 05/27/23 M3 PT-IP Subjective Start: 06/02/23 07:50 Freq: NEEDED Status: Active Protocol: Document 06/06/23 13:46 TS (Rec: 06/06/23 14:13 TS [id number]) Subjective Physical Therapy Visit Type Type Treatment Note Visit Start Time 12:11 Visit Stop Time 12:38 Total Visit Minutes 27 Number of SOCIAL WORKER MASTERS Visits 2 Physical Therapy Visit Comments Patient Comments Pt found resting in bed, continues to have mumbled speech but is slightly more clear today. Pt could still have some confusion, he states he went fishing yesterday. Pt is agreeable to PT. M4 PT-IP Mobility and Gait Start: 06/02/23 07:50 Freq: NEEDED Status: Active Protocol: Document 06/06/23 13:46 TS (Rec: 06/06/23 14:13 TS [id number]) PT-Bed Mobility Assessment Supine to Sit Supine to Sit Moderate Assistance,1 Person Assistance Scooting Scooting to Edge of Bed Standby Assistance PT-Transfer Assessment Sit to and From Stand Sit to and from Stand Maximum Assistance,1 Person Assistance,Use of Upper Extremities Equipment Transfer Assistive Device Gait Belt,Front Wheeled Walker Comments Mobility Comments Supine to sit HOB elevated 50D ModA with handheld assist for uprghting trunk. He scooted to EOB SBA with BUE support . Sit to stand x3 MaxA with FWW and cues weight forward, BUE support pishing from bed and hinging at hips. Pt continues to have heavy retrolean in standing. He ambulated ~15' in room MaxA with cues for FWW management. Pt has a slow step to gait with poor balance and weakness in LEs. Pt sat in chair with cues for rahcing for arms of chair to lower self down ModA. Pt was left in chair with all needs met, chair alarm on, RN notified. Gait Assessment Gait Gait Assistance Required: Maximum Assistance,1 Person Assist Distance (Feet) 15 Assistive Devices Assistive Device Gait Belt,Front Wheeled Walker Gait Deviations General Gait Pattern Ataxic,Decreased Stride Length ,Decreased Feet Clearance, Flexed Trunk,Narrow Based Gait ,Step-to Gait Factors Limiting Gait Function Factors Limiting Gait Function Decreased Activity Tolerance, Decreased Strength,Difficulty Following Directions, Incoordination,Poor Balance, Poor Safety Awareness Comments Gait Comments See mobility comments. PT-Balance Assessment Sitting Balance and Reactions Static Sitting Balance Ability Fair Dynamic Sitting Balance Ability Poor Standing Balance and Reactions Static Standing Balance Ability Poor Dynamic Standing Balance Ability Poor Device Used FWW Comments Other Balance Tests/Deviations/Treatment Pt maintained better sitting : balance CGA/SBA. M5 PT-IP Objective Assessments Start: 06/02/23 07:50 Freq: NEEDED Status: Active Protocol: Document 06/02/23 13:32 AW (Rec: 06/02/23 14:11 AW [id number]) Orientation Orientation/Cognition Level of Alertness Confusional State Orientation Name,Place Language Function Ability Garbled Speech Safety Awareness Decreased Safety Awareness Comments Pt oriented x 2. Speech was mumbled, coherent ~30% of the time with pt forming short sentences. He was able to follow one step directions for mobility but did not understand directions for MMT. Gross Range of Motion Upper Extremity ROM Assessment Within Functional Limits Lower Extremity ROM Assessment Within Functional Limits Strength Comments Strength Comments Unable to formally assess strength. Pt has functional ROM and greater than 3/5 strength in all planes UE and LE. Coordination Assessment Gross Coordination Gross Coordination Impaired Assessment Finger to Nose Test Severe Impairment Pronation/Supination Test Severe Impairment Foot Tapping Test Severe Impairment Heel on Schultz Test Severe Impairment Sensation Assessment Comments Sensation Comments Unable to assess secondary to cognition Muscle Tone Muscle Tone WNL Yes M6 PT-IP Treatment Start: 06/02/23 07:50 Freq: NEEDED Status: Active Protocol: Document 06/06/23 13:46 TS (Rec: 06/06/23 14:13 TS [id number]) Physical Therapy Treatment Education Education Provided Safety M7 PT-IP Assessment and Plan Start: 06/02/23 07:50 Freq: NEEDED Status: Active Protocol: Document 06/06/23 13:46 TS (Rec: 06/06/23 14:13 TS [id number]) PT Summary Assessment and Plan Potential Rehabilitation Potential Good Summary Impairments Strength,Balance,Coordination, Cognition,Bed Mobility, Transfers,Gait,Activity Tolerance Progress Towards Goals Slow Progress - Other Assessment Summary Ridge continues to make slow progress with his mobility this session. He requires ModA with HOB elevated for supine to sit, he maintained better sitting balance this session with CGA/SBA. He continues to require MaxA for sit to stands x3 w/FWW. He continues to have a heavy retrolean and needs max cues for sit to stand sequencing. He progressed his gait to ~15' MaxA for poor balance and weakness. He has some tremoring in extremities with gait making him unstable. PT continues to recommend SNF rehab at this time. Goals Bed Mobility Goal Independent Transfer Goal Independent,Front Wheeled Walker Gait Goal Independent,Front Wheel Walker Gait Distance 100 Other Goals - Pt climbs 4 steps with rail for safe home entry - Pt progresses transfers and gait to independent with LRAD or no AD Days to Meet Goals 10 Frequency of Treatment Frequency Of Treatment Once a Day Treatment Plan Physical Therapy Treatment Plan Bed Mobility Training,Transfer Training,Gait Training, Therapeutic Exercise,Balance Retraining,Post Op Education, Discharge Planning,Hot or Cold Pack,Neuromuscular Re-ed, Coordination Retraining,Manual Therapy Other Recommendations and Next Treatment Continue STS training and Focus progress gait. Precautions Other Precautions seizure precautions, high falls risk Recommendations To Nursing Amount of Assist Needed 2 Person Assist Discharge Recommendations PT Discharge Recommendations SNF Rehab Equipment Needed for Home Before LRAD Discharge
--- NOTE | 2023-06-06 17:52 | PM.PN.1 ---
Subjective Subjective Interval history: Patient more awake today and worked with PT. Still max 2 assist and SNF recommended. Exam Vital Signs (past 8 hours): - 06/06/23 16:39 Temperature 97.8 F Pulse Rate 90 Respiratory Rate 16 Blood Pressure 110/70 Pulse Oximetry 97 Oxygen Flow Rate 0 Oxygen Delivery Method Room Air Oxygen Flow Rate 0 Narrative Exam Narrative: NAD Atraumatic head, EOMI. Neck supple and midline trachea. Lungs CTA, normal rate and effort. Heart RRR, without murmur, gallop, or rub. Abdomen Soft, NT, ND No leg edema. No skin rash. Tremor Objective Labs 06/05/23 04:31 06/05/23 04:31 [facility] Medical History Alcohol use disorder Social History household members: other Smoking Status: Current every day smoker alcohol intake: current Assessment & Plan Assessment & Plan narrative: 62 y/o M admitted for alcohol withdrawal, transferred to ICU for DT's requiring precedex infusion. 1. Acute metabolic encephalopathy with alcohol withdrawal and DTs, improving -came off Precedex early 06/03. -continue thiamine. -Added Librium PO TID 06/02. -required Haldol 06/03 once for agitation. -tapering librium 2. Acute pancreatitis, POA and improving -advance diet and monitor. -monitor for abdomen pain. 3. Hypokalemia, new and active. ?- replace and monitor, telemetry ?- replace Mg as noted below. 4. Hypomagnesemia, new and active. ?- continue to follow and replace 5. Tobacco use disorder, POA. -increased nicotine patch to 21mg from 7mg on 05/30 as smoke 2 pack/daily 6. Pancytopenia, POA and improving. ?- suspect due to EtOH use. continue to follow. 7. HFrEF, new in mild exacerbation -diurese and ECHO to assess LVEF. -echo with EF 30-35%, severe LV hypokinesis, mod left pleural effusion -start aspirin, metoprolol and losartan Dispo: Home vs SNF in 1-2 days. Time Spent With Patient Time with patient: 30 to 49 minutes with 50% spent counseling/coordinating care
[2023-06-07] VITALS (12 sets, daily range): BP systolic 92–96; BP diastolic 58–66; PULSE 90–95; RESP 16–18; TEMP 36.7–37.1; O2SAT 74–96
--- NOTE | 2023-06-07 09:13 | CM.DPC ---
Addendum entered by Jovanna Snider R.N. 06/07/23 14:18: Spoke to son, Sunil, is main contact, updated him about [facility]. Stated, if my dad won't go, I can talk to him. It is noted that patient has consented to go, per hospitalist. Addendum entered by Jovanna Snider R.N. 06/07/23 11:55: Spoke to Susan at [facility]. She has already started the insurance auth. Face sheet is incorrect, confirmed that patient has [employer], not [employer]. Susan is working on daily rate, she has received the auth letter. She will know by Friday, may have to negotiate the rate. Original Note: DCP Cont: Last note from FOOD PHOTOGRAPHER indicates that referral was sent to [facility], patient is currently a max assist of two. Called Susan at [facility] and left her a message inquiring if she has reviewed patient. She has taken [employer] before, she would need to get a contract and a rate for patient. No other local facilities accept insurance. Patient would also need to consent to go, and not use alcohol. P: DCP to continue to follow. Have a message out to Susan at [facility]. Otherwise, will go home, notes indicate he has declined ETOH resources. Jovanna Snider RN/Bottom Filler
[2023-06-07] MEDS: FAMOTIDINE 20 MG TABLET PO ×2 (09:34→21:14)
[2023-06-07] MEDS: METOPROLOL ER 25 MG TABLET 12.5 MG PO (09:34)
[2023-06-07] MEDS: ASPIRIN EC 81 MG TABLET PO (09:34)
[2023-06-07] MEDS: FOLIC ACID 1 MG TABLET PO (09:34)
[2023-06-07] MEDS: HEPARIN 5,000 UNIT/ML VIAL 5000 UNIT SUBCUT ×2 (09:34→21:14)
[2023-06-07] MEDS: MULTIVITAMIN 1 TABLET 1 TAB PO (09:35)
[2023-06-07] MEDS: NICOTINE 21 MG PATCH TOP (09:35)
[2023-06-07] MEDS: THIAMINE 100 MG TABLET PO (09:35)
--- NOTE | 2023-06-07 10:35 | ST.IPCSEOM ---
Visit Care Team Role Provider Type Doctor Lucy MD Primary Care Provider Non-Staff Specialty: Medical Address: Phone: Fax: Email: Kilo Da Silva MD Other Providers Physician Specialty: Medical Address: Phone: Fax: Email: Matilde Arango MD Other Providers Physician Specialty: Medical Address: Phone: Fax: Email: Gabriel López MD Other Providers Physician Specialty: Medical Address: [address] [place], [address] Phone: Fax: Email: Mili Allen MD Other Providers Physician Specialty: Internal Medicine Address: Phone: Fax: Email: Antoni Robertson MD Other Providers Physician Specialty: Medical Address: Phone: Fax: Email: Bruna Slade MD Other Providers Physician Specialty: Anesthesiology Internal Medicine Address: [address] [place], [address] Fax: Email: [email or web address] Astrid Jones MD Other Providers Physician Specialty: Internal Medicine Address: [id number] [place] [address], [address] Phone: Fax: Email: [email or web address] Andrea Davila MD Other Providers Physician Specialty: Internal Medicine Address: Phone: Fax: Email: Crow Guy MD Other Providers Physician Specialty: Medical Address: Phone: Fax: Email: Srinivas Veras MD Other Providers Physician Specialty: Internal Medicine Address: [address] [place], [address] Phone: Fax: Email: Evan Gannon MD Other Providers Physician Specialty: Medical Address: [address], [address] Phone: Fax: Email: Annel Arrieta MD Other Providers Physician Specialty: Medical Address: Phone: Fax: Email: Joyce Desai Other Providers Physician Specialty: Medical Address: Phone: Fax: Email: Jennifer Chaney MD Other Providers Physician Specialty: Internal Medicine Address: Phone: Fax: Email: KATY OwensP-C Family Provider Non-Staff Specialty: Family Practice Address: [address] [place], [address] Email: Kassi Swenson MD Emergency Provider Physician Referring Provider Specialty: Emergency Medicine Address: [address] [place] [address], [address] Email: Rylan Mills MD Admit Provider Physician Attending Provider Specialty: Internal Medicine Address: [address] [place] [address], [facility] Fax: Email: [email or web address] Diagnoses Alcohol dependence with withdrawal, unspecified (05/27/23) Past Medical History (Last Reviewed 05/28/23 @ 13:38 by Juan C Carlos DO) Alcohol use disorder (Medical) Speech-Language Pathology Swallow Evaluation FAMILY ASSISTANT Clinical Swallow Evaluation Start: 06/07/23 10:26 Freq: Status: Active Protocol: Document 06/07/23 10:26 MG (Rec: 06/07/23 10:35 MG [id number]) Clinical Swallow Evaluation Session Time Visit Start Time 09:35 Visit Stop Time 10:00 Total Visit Minutes 25 Visit Information Visit Number 1 Setting Assessment Location Acute Care Visit Type Note Type Initial evaluation Patient Information Identification Type Name,Wristband History Per H&P: pt is a 62 y/o M presented to the ED on 2022 with abd pain and n/v. no blood reported. started a few days ago mostly lower abd. denies diarrhea. denies cp or sob or cough or fever/chills. pt drinks daily and heavily and says he is not ready to stop drinking but seems needs help since he is having pain and n/v and some withdrawal symptoms. abs CT showed possible distal enteritis. Pt is currently in alcohol withdrawls and very weak. ST was ordered to assess swallowing and speech. Subjective Observations Pt was reseting in chair next to bedside upon FAMILY ASSISTANT entry. Pt agreeable to evaluation. Pt reported he had eggs for breakfast and enjoyed his meal . When observing oral cavity, no pocketing or residue was noted. Of note, the pt spoke in a quite voice but did demonstrate the ability to increase his volume when prompted and spoke louder as the session progresed. Reported by Patient/Caregiver Current Diet Regular (IDDSI 7) Baseline Feeding Method Independent in self-feeding The IDDSI Framework Protocol: IDDSI.1 Objective Assessment Mental Status Alert,Responsive,Cooperative, Lethargic Oral Integrity WFL Dentition Missing teeth,Decay Lip Function Within normal limits Observation of Lips at Rest Symmetrical Pucker Within normal limits Lip Retraction Within normal limits Alternating Pucker/Lip Retraction Within normal limits Tongue Function Within normal limits Observations of Tongue at Rest Within normal limits Tongue Protrusion Within normal limits Tongue Retraction Within normal limits Tongue Lateralization Within normal limits Jaw Function Within normal limits Observation of Jaw at Rest Within normal limits Jaw Opening Within normal limits Jaw Closing Within normal limits Jaw Lateralization Within normal limits Jaw Protrusion Within normal limits Jaw Retraction Within normal limits Hard/Soft Palate Function Within normal limits Observations of Hard/Soft Palate Within normal limits Nasality Within normal limits Respiratory Sufficiency Within normal limits Comment Pt participated in OME and no weaknesses or asymmetrical movements were noted at this time. Food and Liquid Trials Position During Assessment Upright (90 degrees) Liquids Trialed Ice chips,Thin (IDDSI 0) Solid Trials Purred (IDDSI 4),Minced & Moist (IDDSI 5),Soft & Bite- sized (IDDSI 6),Easy to Chew ( IDDSI 7),Regular (IDDSI 7) Administration Type Tea spoon,Cup single sip,Straw ,Self-feeding Oral Impairment Within functional limits Oral Phase Comments No anterior spillage noted. Adequate mastication time. No residue after solid trials noted. Pharyngeal Impairment Within functional limits Pharyngeal Phase Comments Laryngeal palpation indicated adequate hyolaryngeal elevation and anterior hyoid excursion. No overt s/sx of aspiration noted on any liquid /solid trials. No wet/gurgly voice observed. Pt reported to this FAMILY ASSISTANT that he does not have concerns with swallowing at this time. FAMILY ASSISTANT and the pt's nurse administered medication via carrier. The pt did use a liquid rinse x2 but swallowing medication with no difficulties. Fatigue/Endurance Endurance WNL The IDDSI Framework Protocol: IDDSI.1 Findings Swallowing Function Within functional limits Severity of Swallow Impairment Within functional limits Contributing Factors to Swallow Reduced alertness or attention Impairment Prognosis Good Impact on Safety and Functioning No limitations Recommendations Instrumental Assessment No Swallowing Treatment No Recommended Solids Regular (IDDSI 7) Recommended Liquids Thin (IDDSI 0) Safety Precautions/Swallowing Remain upright (90 degrees) Recommendations during all oral intake,Small bites and sips when eating, Slow rate; swallow between bites,Alternate liquids and solids Medication Recommendations As Tolerated Discharge Recommendations Home,custodial facility, Home with Home Health Education Patient/Caregiver Education Described results of evaluation,Patient expressed understanding of evaluation, Patient expressed agreement with goals & treatment plans, Patient expressed understanding of safety precautions,Patient expressed understanding of feeding recommendations
--- NOTE | 2023-06-07 10:55 | PT.IPTN ---
Current Diagnoses Alcohol dependence with withdrawal, unspecified (05/27/23) Physical Therapy Treatment Note M2 PT-IP Current Condition Start: 06/02/23 07:50 Freq: NEEDED Status: Active Protocol: Document 06/02/23 13:32 AW (Rec: 06/02/23 14:11 AW [id number]) Physical Therapy Current Condition Current Condition Evaluation Date 06/02/23 Treatment Diagnosis alcohol withdrawal, seizure history, impaired mobility and gait Onset Date 05/27/23 M3 PT-IP Subjective Start: 06/02/23 07:50 Freq: NEEDED Status: Active Protocol: Document 06/07/23 11:32 TS (Rec: 06/07/23 11:50 TS [id number]) Subjective Physical Therapy Visit Type Type Treatment Note Visit Start Time 10:55 Visit Stop Time 11:18 Total Visit Minutes 23 Number of LOGGING ENGINEER Visits 3 Physical Therapy Visit Comments Patient Comments Pt found resting chair, reports he is a 100% better and would like to go home to use his bowflex. Pt is agreeable to PT. M4 PT-IP Mobility and Gait Start: 06/02/23 07:50 Freq: NEEDED Status: Active Protocol: Document 06/07/23 11:32 TS (Rec: 06/07/23 11:50 TS [id number]) PT-Transfer Assessment Sit to and From Stand Sit to and from Stand Moderate Assistance,Maximum Assistance,1 Person Assistance ,Use of Upper Extremities Equipment Transfer Assistive Device Gait Belt,Front Wheeled Walker Comments Mobility Comments Sit to stand from chair MaxA w /FWW, pt has posterior LOB requiring MaxA to stay upright . He ambulated in room ~20' MaxA w/FWW, he has poor balance with a posterior lean and has some tremoring. Pt ambulated back to chair, required cues for reaching for arms of chair for good eccentric control. Sit to stand from chair MaxA x1 w/FWW , pt had another x1LOB requiring MaxA. He ambulated another 20' with continued poor balance and tremoring. He requires cues for upright posture and staying inside FWW . Pt performed sit to stand x5 w/FWW from chair MaxA -ModA to improve sit to stand carryover, pt had no posterior LOB. Pt was left back in chair, chair alarm on, all needs met. Gait Assessment Gait Gait Assistance Required: Moderate Assistance,Maximum Assistance,1 Person Assist Distance (Feet) 40 Assistive Devices Assistive Device Gait Belt,Front Wheeled Walker Gait Deviations General Gait Pattern Ataxic,Decreased Stride Length ,Decreased Feet Clearance, Flexed Trunk,Narrow Based Gait ,Step-to Gait Factors Limiting Gait Function Factors Limiting Gait Function Decreased Activity Tolerance, Decreased Strength,Difficulty Following Directions, Incoordination,Poor Balance, Poor Safety Awareness Comments Gait Comments See mobility comments. PT-Balance Assessment Sitting Balance and Reactions Static Sitting Balance Ability Fair Dynamic Sitting Balance Ability Poor Standing Balance and Reactions Static Standing Balance Ability Poor Dynamic Standing Balance Ability Poor Device Used FWW M5 PT-IP Objective Assessments Start: 06/02/23 07:50 Freq: NEEDED Status: Active Protocol: Document 06/02/23 13:32 AW (Rec: 06/02/23 14:11 AW [id number]) Orientation Orientation/Cognition Level of Alertness Confusional State Orientation Name,Place Language Function Ability Garbled Speech Safety Awareness Decreased Safety Awareness Comments Pt oriented x 2. Speech was mumbled, coherent ~30% of the time with pt forming short sentences. He was able to follow one step directions for mobility but did not understand directions for MMT. Gross Range of Motion Upper Extremity ROM Assessment Within Functional Limits Lower Extremity ROM Assessment Within Functional Limits Strength Comments Strength Comments Unable to formally assess strength. Pt has functional ROM and greater than 3/5 strength in all planes UE and LE. Coordination Assessment Gross Coordination Gross Coordination Impaired Assessment Finger to Nose Test Severe Impairment Pronation/Supination Test Severe Impairment Foot Tapping Test Severe Impairment Heel on Schultz Test Severe Impairment Sensation Assessment Comments Sensation Comments Unable to assess secondary to cognition Muscle Tone Muscle Tone WNL Yes M6 PT-IP Treatment Start: 06/02/23 07:50 Freq: NEEDED Status: Active Protocol: Document 06/07/23 11:32 TS (Rec: 06/07/23 11:50 TS [id number]) Physical Therapy Treatment Education Education Provided Safety M7 PT-IP Assessment and Plan Start: 06/02/23 07:50 Freq: NEEDED Status: Active Protocol: Document 06/07/23 11:32 TS (Rec: 06/07/23 11:50 TS [id number]) PT Summary Assessment and Plan Potential Rehabilitation Potential Fair Summary Impairments Strength,Balance,Coordination, Cognition,Bed Mobility, Transfers,Gait,Activity Tolerance Progress Towards Goals Slow Progress - Other Assessment Summary Ridge requires MaxA-ModA for sit to stands x7. He had x2 LOB coming into sitting due to posterior lean. He improves his sit to stands when provided cues for sequencing. He progressed his gait to ~40' MaxA-ModA w/FWW. Pt continues to have poor balance with decreased strength and ongoing tremoring. He requires max cues for all mobility and demonstrates poor safety awareness. PT continues to recommend SNf rehab. Goals Bed Mobility Goal Independent Transfer Goal Independent,Front Wheeled Walker Gait Goal Independent,Front Wheel Walker Gait Distance 100 Other Goals - Pt climbs 4 steps with rail for safe home entry - Pt progresses transfers and gait to independent with LRAD or no AD Days to Meet Goals 10 Frequency of Treatment Frequency Of Treatment Once a Day Treatment Plan Physical Therapy Treatment Plan Bed Mobility Training,Transfer Training,Gait Training, Therapeutic Exercise,Balance Retraining,Post Op Education, Discharge Planning,Hot or Cold Pack,Neuromuscular Re-ed, Coordination Retraining,Manual Therapy Other Recommendations and Next Treatment Continue STS training and Focus progress gait. Precautions Other Precautions seizure precautions, high falls risk Recommendations To Nursing Amount of Assist Needed 2 Person Assist Discharge Recommendations PT Discharge Recommendations SNF Rehab Equipment Needed for Home Before LRAD Discharge
[2023-06-07 11:24] LABS: HEMOLYSIS < 15 (0-50); Potassium 4.7 mmol/L (3.4-5.1)
--- NOTE | 2023-06-07 12:51 | P.DS_ITS ---
History of Present Illness History of Present Illness Date Patient Seen: 05/28/23 Time Patient Seen: 11:00 Chief complaint: drinking water cant keep down/ stomach pain/vomitt Narrative: History is taken largely from the overnight provider, as patient's mental status has decreased and unable to obtain reliable history. Per Dr. Mills, 62 y/o M presented to the ED with abd pain and n/v. no blood reported. started a few days ago mostly lower abd. denies diarrhea. denies cp or sob or cough or fever/chills. pt drinks daily and heavily and says he is not ready to stop drinking but seems needs help since he is having pain and n/v and some withdrawal symptoms. abs CT showed possible distal enteritis. This morning, the patient became more confused and agitated. Attempted phenobarb without success and now improved on precedex. Changed to ICU status. Discharge Providers Provider Date of admission: 05/27/23 23:45 Discharge Date: 06/07/23 Primary care physician: Doctor Lucy MD Consults: 05/30/23 20:10 Consult to Tele-distribution transformer assembler Routine Comment: Consulting Provider: [employer] Reason for consultation: Occupational Health And Safety Adviser services Has provider been notified: Yes 06/01/23 18:25 Consult to Physical Therapy Evaluate & Treat Comment: Physician Instructions: Evaluate and Treat 06/02/23 09:39 Consult to Physical Therapy Evaluate & Treat Comment: Physician Instructions: Evaluate and Treat 06/05/23 11:35 Consult to Speech Therapy Evaluate & Treat Comment: coughing when taking oral meds whole. Physician Instructions: Evaluate and treat 06/06/23 17:52 Consult to [facility] - Transporter Radiology Routine Comment: home resources, or convince to go to SNF Discharge provider: Marcos Rangel, DO Exam Vital Signs (past 8 hours): - 06/07/23 05:00 06/07/23 08:13 06/07/23 09:34 Temperature 98.0 F 98.1 F Pulse Rate 93 H 91 H 90 Respiratory Rate 18 16 Blood Pressure 95/66 94/62 94/62 Pulse Oximetry 96 91 Oxygen Delivery Method Oxygen Flow Rate 0 06/07/23 10:04 06/07/23 07:00 06/07/23 12:10 Temperature Pulse Rate Respiratory Rate Blood Pressure 96/58 L 96/58 L Pulse Oximetry Oxygen Delivery Method Room Air Oxygen Flow Rate Oxygen Delivery Method Room Air Oxygen Flow Rate 0 Narrative Exam Narrative: NAD, mild cog impairment Atraumatic head, EOMI. Neck supple and midline trachea. Lungs CTA, normal rate and effort. Heart RRR, without murmur, gallop, or rub. Abdomen Soft, NT, ND No leg edema. No skin rash. Tremor Objective Labs 06/05/23 04:31 06/07/23 11:10 Labs: Laboratory Results - last 24 hr 06/07/23 11:10 Potassium 4.7 PFSH Medical History Alcohol use disorder Social History household members: other Smoking Status: Current every day smoker alcohol intake: current Discharge Plan Discharge orders & Medications Prescriptions: No Action No Known Home Medications Follow up/Referrals: Doctor Ayala MD [Primary Care Provider] - Visit Report/Discharge Packet Stand Alone Forms: Patient Portal/API Discharge Data Primary Care Provider: Doctor Lucy
--- NOTE | 2023-06-07 15:19 | PC.NURSE ---
Addendum entered by Graciela Maravilla R.N. 06/07/23 15:30: In am, relayed to provider that pt did not have IV - currently no IV meds. Provider okayed. Original Note: Spoke with provider in am regarding pt BP 94/62 HR 90s and metopolol 25mg IR and losartan orders. Provider changed order to metoprolol 12.5mg ER and canceled losartan and okayed admin of metoprolol. Pt BP reassessment stable and no s/s of hypotension. Spoke with pharmacy regarding potassium order (last level on 06/05/2023 was 4.1). Potassium held and redraw was 4.7 - provider canceled potassium med order. Assessed pt's orientation, pt orientated to person, time and place. Pt denied hallucinations and delusions. Spoke with case management on discharge plan and relayed RN's assessment. Currently VS stable.
--- NOTE | 2023-06-07 17:16 | PM.PN.1 ---
Subjective Subjective Interval history: Patient up to the chair today. He is willing to go to SNF for PT. Able to work with PT and eat well today with speech. Exam Vital Signs (past 8 hours): - 06/07/23 09:34 06/07/23 10:04 06/07/23 12:10 Pulse Rate 90 Blood Pressure 94/62 96/58 L 96/58 L Oxygen Delivery Method Room Air Oxygen Flow Rate 0 Narrative Exam Narrative: NAD, mild cog impairment Atraumatic head, EOMI. Neck supple and midline trachea. Lungs CTA, normal rate and effort. Heart RRR, without murmur, gallop, or rub. Abdomen Soft, NT, ND No leg edema. No skin rash. Tremor Objective Labs 06/05/23 04:31 06/07/23 11:10 Labs: Laboratory Results - last 24 hr 06/07/23 11:10 Potassium 4.7 PFSH Medical History Alcohol use disorder Social History household members: other Smoking Status: Current every day smoker alcohol intake: current Assessment & Plan Assessment & Plan narrative: 62 y/o M admitted for alcohol withdrawal, transferred to ICU for DT's requiring precedex infusion. 1. Acute metabolic encephalopathy with alcohol withdrawal and DTs, improving -came off Precedex early 06/03. -continue thiamine. -Added Librium PO TID 06/02. -required Haldol 06/03 once for agitation. -stopped librium and CIWA as now out of withdrawal range 2. Acute pancreatitis, POA and improving -advance diet and monitor. -monitor for abdomen pain. 3. Hypokalemia, new and active. ?- replace and monitor, telemetry ?- replace Mg as noted below. 4. Hypomagnesemia, new and active. ?- continue to follow and replace 5. Tobacco use disorder, POA. -increased nicotine patch to 21mg from 7mg on 05/30 as smoke 2 pack/daily 6. Pancytopenia, POA and improving. ?- suspect due to EtOH use. continue to follow. 7. HFrEF, new in mild exacerbation -diurese and ECHO to assess LVEF. -echo with EF 30-35%, severe LV hypokinesis, mod left pleural effusion -start aspirin, metoprolol, held losartan due to low BP Dispo: Pending SNF placement. Patient willing to go. Time Spent With Patient Time with patient: 30 to 49 minutes with 50% spent counseling/coordinating care
[2023-06-08] VITALS (10 sets, daily range): BP systolic 89–100; BP diastolic 56–65; PULSE 68–99; RESP 16–18; TEMP 36.8–37; O2SAT 87–97
--- NOTE | 2023-06-08 08:01 | PM.PN.1 ---
Subjective Subjective Interval history: Patient awaiting SNF. No complaints. Exam Vital Signs (past 8 hours): - 06/08/23 05:12 Temperature 98.3 F Pulse Rate 69 Respiratory Rate 17 Blood Pressure 100/65 Pulse Oximetry 94 Oxygen Delivery Method Room Air Oxygen Flow Rate 0 Narrative Exam Narrative: NAD, mild cog impairment Atraumatic head, EOMI. Neck supple and midline trachea. Lungs CTA, normal rate and effort. Heart RRR, without murmur, gallop, or rub. Abdomen Soft, NT, ND No leg edema. No skin rash. No tremor Objective Labs 06/05/23 04:31 06/07/23 11:10 Labs: Laboratory Results - last 24 hr 06/07/23 11:10 Potassium 4.7 PFSH Medical History Alcohol use disorder Social History household members: other Smoking Status: Current every day smoker alcohol intake: current Assessment & Plan Assessment & Plan narrative: 62 y/o M admitted for alcohol withdrawal, transferred to ICU for DT's requiring precedex infusion. 1. Acute metabolic encephalopathy with alcohol withdrawal and DTs, resolved -came off Precedex early 06/03. -continue thiamine. -Added Librium PO TID 06/02. -required Haldol 06/03 once for agitation. -stopped librium and CIWA as now out of withdrawal range 2. Acute pancreatitis, POA and resolved -advance diet and monitor. -monitor for abdomen pain. 3. Hypokalemia, new and active. ?- replace and monitor, telemetry ?- replace Mg as noted below. 4. Hypomagnesemia, new and active. ?- continue to follow and replace 5. Tobacco use disorder, POA. -increased nicotine patch to 21mg from 7mg on 05/30 as smoke 2 pack/daily 6. Pancytopenia, POA and improving. ?- suspect due to EtOH use. continue to follow. 7. HFrEF, new in mild exacerbation -diurese and ECHO to assess LVEF. -echo with EF 30-35%, severe LV hypokinesis, mod left pleural effusion -start aspirin, metoprolol, held losartan due to low BP Dispo: SNF on 06/09. Time Spent With Patient Time with patient: 30 to 49 minutes with 50% spent counseling/coordinating care
[2023-06-08] MEDS: ASPIRIN EC 81 MG TABLET PO (08:33)
[2023-06-08] MEDS: MULTIVITAMIN 1 TABLET 1 TAB PO (08:33)
[2023-06-08] MEDS: FAMOTIDINE 20 MG TABLET PO ×2 (08:33→20:15)
[2023-06-08] MEDS: FOLIC ACID 1 MG TABLET PO (08:33)
[2023-06-08] MEDS: THIAMINE 100 MG TABLET PO (08:33)
[2023-06-08] MEDS: HEPARIN 5,000 UNIT/ML VIAL 5000 UNIT SUBCUT ×2 (08:35→20:16)
[2023-06-08] MEDS: NICOTINE 21 MG PATCH TOP (08:35)
--- NOTE | 2023-06-08 12:02 | PT.IPTN ---
Current Diagnoses Alcohol dependence with withdrawal, unspecified (05/27/23) Physical Therapy Treatment Note M2 PT-IP Current Condition Start: 06/02/23 07:50 Freq: NEEDED Status: Active Protocol: Document 06/02/23 13:32 AW (Rec: 06/02/23 14:11 AW [id number]) Physical Therapy Current Condition Current Condition Evaluation Date 06/02/23 Treatment Diagnosis alcohol withdrawal, seizure history, impaired mobility and gait Onset Date 05/27/23 M3 PT-IP Subjective Start: 06/02/23 07:50 Freq: NEEDED Status: Active Protocol: Document 06/08/23 12:26 AB (Rec: 06/08/23 12:44 AB [id number]) Subjective Physical Therapy Visit Type Type Treatment Note Visit Start Time 11:30 Visit Stop Time 12:02 Total Visit Minutes 32 Physical Therapy Visit Comments Patient Comments Pt presents sleeping while sitting in chair, but is agreeable to PT session. He denies having any symptoms currently. Therapy Pain Assessment Pain When Pain Assessed At Rest Pain Present Pain Present Denied Pain M4 PT-IP Mobility and Gait Start: 06/02/23 07:50 Freq: NEEDED Status: Active Protocol: Document 06/08/23 12:26 AB (Rec: 06/08/23 12:44 AB [id number]) PT-Transfer Assessment Sit to and From Stand Sit to and from Stand Standby Assistance,Use of Upper Extremities Equipment Transfer Assistive Device Gait Belt,Front Wheeled Walker Comments Mobility Comments The pt is able to perform STS and transfer with CGA using UEs initially, but progressed to SBA without use of UEs by the end of the session. He demonstrates much improved static standing balance, as he has no instances of LOB throughout session. Additional treatment as below was performed, and at end of session pt returned to chair with lunch placed on table, all needs met, call light within reach and chair alarm activated. RN was notified of pt's progress. Gait Assessment Gait Gait Assistance Required: Contact Guard Assist Distance (Feet) 350 Assistive Devices Assistive Device Gait Belt,Front Wheeled Walker Gait Deviations General Gait Pattern Ataxic,Decreased Stride Length ,Decreased Feet Clearance, Flexed Trunk,Narrow Based Gait Comments Gait Comments Pt continues to require mod VCs for proper use of FWW and for improved posture throughout, but continues to demonstrate gait deviations above, which become more apparent with increased gait speed. Trialed ambulating without AD 15ft x 2 in room with CGA. Pt is able to perform but has similar gait deviations as with FWW, though decreased trunk flexion is noted. Stair Climbing Assessment Evaluation Level of Assist On Stairs Contact Guard Assistance Devices Stair Climbing Assistive Devices Left Railing,Right Railing Technique/Endurance Stair Climbing Direction Ascend and Descend Stair Climbing Technique Step to Step Number of Steps Climbed 3 Stair Climbing Set # Repetitions (reps) 2 Comments Stair Climbing Comments Pt is able to ascend with step over step technique, but descends with step to step technique. PT-Balance Assessment Sitting Balance and Reactions Static Sitting Balance Ability Good Dynamic Sitting Balance Ability Fair Standing Balance and Reactions Static Standing Balance Ability Fair Dynamic Standing Balance Ability Poor Device Used none Functional Assessments Functional Tests 5 Times Sit to Stand 34 seconds without UEs M5 PT-IP Objective Assessments Start: 06/02/23 07:50 Freq: NEEDED Status: Active Protocol: Document 06/02/23 13:32 AW (Rec: 06/02/23 14:11 AW [id number]) Orientation Orientation/Cognition Level of Alertness Confusional State Orientation Name,Place Language Function Ability Garbled Speech Safety Awareness Decreased Safety Awareness Comments Pt oriented x 2. Speech was mumbled, coherent ~30% of the time with pt forming short sentences. He was able to follow one step directions for mobility but did not understand directions for MMT. Gross Range of Motion Upper Extremity ROM Assessment Within Functional Limits Lower Extremity ROM Assessment Within Functional Limits Strength Comments Strength Comments Unable to formally assess strength. Pt has functional ROM and greater than 3/5 strength in all planes UE and LE. Coordination Assessment Gross Coordination Gross Coordination Impaired Assessment Finger to Nose Test Severe Impairment Pronation/Supination Test Severe Impairment Foot Tapping Test Severe Impairment Heel on Schultz Test Severe Impairment Sensation Assessment Comments Sensation Comments Unable to assess secondary to cognition Muscle Tone Muscle Tone WNL Yes M6 PT-IP Treatment Start: 06/02/23 07:50 Freq: NEEDED Status: Active Protocol: Document 06/08/23 12:26 AB (Rec: 06/08/23 12:44 AB [id number]) Physical Therapy Treatment Education Education Provided Safety Other Treatments Other Treatment Performed STS 2x5 (1st set with UEs, 2nd set w/o UEs) M7 PT-IP Assessment and Plan Start: 06/02/23 07:50 Freq: NEEDED Status: Active Protocol: Document 06/08/23 12:26 AB (Rec: 06/08/23 12:44 AB [id number]) PT Summary Assessment and Plan Potential Rehabilitation Potential Good Summary Impairments Strength,Balance,Coordination, Cognition,Bed Mobility, Transfers,Gait,Activity Tolerance Progress Towards Goals Progressing Toward Goals Assessment Summary The pt had made significant progress since his last PT session. He demonstrates much improved ability to perform STS and transfers, as he is now able to perform these with SBA. The pt ambulated 350 ft and performed 6 steps with CGA . He also demonstrates improved sitting and standing balance, but the deficits listed above show he would still benefit from FWW for ambulation of longer distances in order to reduce fall risk. However, he continues with significant functional and balance deficits which are increasing his risk for falls and are limiting his level of function and independence. Based on his progress but remaining limitations, the pt shows he is not yet safe to discharge to home unless he has 24/7 assist due to his high risk for falls. Discharge recommendation should continue to be assessed based on the pt's progress. Goals Bed Mobility Goal Independent Transfer Goal Independent,Front Wheeled Walker Gait Goal Independent,Front Wheel Walker Gait Distance 100 Other Goals - Pt climbs 4 steps with rail for safe home entry - Pt progresses transfers and gait to independent with LRAD or no AD Days to Meet Goals 10 Frequency of Treatment Frequency Of Treatment Once a Day Treatment Plan Physical Therapy Treatment Plan Bed Mobility Training,Transfer Training,Gait Training, Therapeutic Exercise,Balance Retraining,Post Op Education, Discharge Planning,Hot or Cold Pack,Neuromuscular Re-ed, Coordination Retraining,Manual Therapy Other Recommendations and Next Treatment Continue STS training and Focus progress gait. Perform Tinetti or Nicole to further assess balance. Precautions Other Precautions seizure precautions, high falls risk Recommendations To Nursing Amount of Assist Needed 1 Person Assist Discharge Recommendations PT Discharge Recommendations Home vs SNF Equipment Needed for Home Before LRAD Discharge
--- NOTE | 2023-06-08 16:07 | CM.DPC ---
DCP Continued: RETAIL SALES MANAGER reviewed EMR. Per previous notes, waiting on insurance auth to d/c patient to [facility]. RETAIL SALES MANAGER spoke with PT. PT reports patient is moving well and could still benefit from SNF, but is on the fence about it and would need 24/7 supports at home. RETAIL SALES MANAGER lvm with Susan at [facility] to inquire about update. No response as of 1630. RETAIL SALES MANAGER entered room and introduced self and role. Patient laying in window seat by sun. Patient reports being eager to leave and hopeful to d/c to [facility] tomorrow. RETAIL SALES MANAGER answered questions about [facility] and SNF in general. RETAIL SALES MANAGER spoke with son Sunil and updated him. Sunil appreciative of information and update. Sunil reports that if no auth for SNF, he can pick patient up tomorrow after he gets off work in the evening. Plan: pending auth from insurance to d/c to SNF when medically stable. CM team will follow up with Susan first thing in am. RICHARD Glez
[2023-06-09] VITALS (8 sets, daily range): BP systolic 97–110; BP diastolic 56–68; PULSE 79–95; RESP 16–20; TEMP 36.6–37.1; O2SAT 96–98
--- NOTE | 2023-06-09 07:01 | PC.NURSE ---
shift note--pt slept a good portion of the shift; he does remain impulsive at times and tries to get OOB without calling; at 0525, pt assisted to chair w/ FWW and 2 person SBA; sandwich and coffee given; chair alarm on and call light in reach
[2023-06-09] MEDS: ASPIRIN EC 81 MG TABLET PO (08:13)
[2023-06-09] MEDS: NICOTINE 21 MG PATCH TOP (08:13)
[2023-06-09] MEDS: THIAMINE 100 MG TABLET PO (08:13)
[2023-06-09] MEDS: FAMOTIDINE 20 MG TABLET PO ×2 (08:14→20:57)
[2023-06-09] MEDS: METOPROLOL ER 25 MG TABLET 12.5 MG PO (08:14)
[2023-06-09] MEDS: FOLIC ACID 1 MG TABLET PO (08:14)
[2023-06-09] MEDS: MULTIVITAMIN 1 TABLET 1 TAB PO (08:14)
--- NOTE | 2023-06-09 13:08 | CM.DPC ---
Addendum entered by RICHARD Golden 06/09/23 15:07: ADD: ALIOSN called Susan at [facility] and she confirms she just received the one-time auth contract from [facility] and awaiting her talent acquisition administrator to sign the contract after her meeting and will then send back to [facility] and anticipates transporting pt tomorrow for admission to their facility and will contact their transportation staff towards working on a time for transport tomorrow 06/10. ALISON updated . BF Original Note: DCP SNF vs HH Per MD, pt stable and could be ready for d/c to SNF if SNF secured but currently unsafe for home. Per PT/OT, pt making progress but recommendation of SNF still at this time. ALISON confirmed that [facility] has submitted for one time contract with [facility] but no determination provided by insurance yet. ALISON met bedside with pt and explained role and discussed above and talked about SNF rehab and home with HH and pt remains in agreement to either but wants to discharge today. ALISON had difficulty determining if pt has a full understanding of SNF rehab or the current needs he would have if he returned home as pt seems to have some confusion at times but unclear his baseline cognition. ALISON updated who confirms the need to exhaust SNF rehab option first before discharging pt to home in order to have a reasonably safe discharge plan. Plan; SW to follow closely with [facility] to determine if [facility] will auth a one time contract with [facility] vs plan for home with roommate and supportive local son and new HH referral. RICHARD Golden
--- NOTE | 2023-06-09 13:26 | PT.IPTN ---
Current Diagnoses Alcohol dependence with withdrawal, unspecified (05/27/23) Physical Therapy Treatment Note M2 PT-IP Current Condition Start: 06/02/23 07:50 Freq: NEEDED Status: Active Protocol: Document 06/09/23 13:11 SP (Rec: 06/09/23 15:23 SP [id number]) Physical Therapy Current Condition Current Condition Evaluation Date 06/02/23 Treatment Diagnosis alcohol withdrawal, seizure history, impaired mobility and gait Onset Date 05/27/23 M3 PT-IP Subjective Start: 06/02/23 07:50 Freq: NEEDED Status: Active Protocol: Document 06/09/23 13:11 SP (Rec: 06/09/23 15:23 SP [id number]) Subjective Physical Therapy Visit Type Type Treatment Note Visit Start Time 13:11 Visit Stop Time 13:26 Total Visit Minutes 15 Notes Friend arrived end tx to visit , in room when left. Number of PRODUCTION CONTROL MANAGER Visits 1 Physical Therapy Visit Comments Patient Comments Pt up in the chair when arrived, agreeable to working with PRODUCTION CONTROL MANAGER. Therapy Pain Assessment Pain Present Pain Present Denied Pain M4 PT-IP Mobility and Gait Start: 06/02/23 07:50 Freq: NEEDED Status: Active Protocol: Document 06/09/23 13:11 SP (Rec: 06/09/23 15:23 SP [id number]) PT-Transfer Assessment Sit to and From Stand Sit to and from Stand Minimal Assistance,Moderate Assistance,1 Person Assistance ,Use of Upper Extremities Equipment Transfer Assistive Device Gait Belt,Front Wheeled Walker Transfers Transfer Destination Chair Transfer Technique pt ambulated using FWW Transfer Ability Level of Assist Minimal Assistance,1 Person Assistance,Use of Upper Extremities Comments Mobility Comments Pt requires BUE on chair arms and Min/Mod A x1 for trunk stability coming to full stand on 2nd attempt, demonstrated retro lean uses back of BLEs on chair initially for stabillity once standing. Completed Tinetti balance/gait assessment 05/05. Pt was able to walk around nursing station with CG/Min A using FWW, decreased LLE stride and foot clearance, cues for obstacle navigation and maintaining trunk centered inside FWW this tx, 1 stop stand brief rest 136 ft, trunk sways when looks up at nurse talking to him. Pt requires increased support for mobility in standing this tx. Pt is a high fall risk on Tinetti balance/gait assessment. PRODUCTION CONTROL MANAGER recommending SNF vs 31/03 with Min/Mod A x1 required while using FWW for all mobility. Pt had call light and all needs in reach, chair alarm donned before left , friend in room to visit. Gait Assessment Gait Gait Assistance Required: Minimum Assistance,1 Person Assist Distance (Feet) 136 Assistive Devices Assistive Device Gait Belt,Front Wheeled Walker Gait Deviations General Gait Pattern Ataxic,Decreased Stride Length ,Decreased Feet Clearance, Flexed Trunk,Lateral Trunk Lean,Narrow Based Gait Factors Limiting Gait Function Factors Limiting Gait Function Decreased Activity Tolerance, Decreased Strength,Difficulty Following Directions, Incoordination,Poor Balance, Poor Safety Awareness Comments Gait Comments See mobility comments. PT-Balance Assessment Sitting Balance and Reactions Static Sitting Balance Ability Good Dynamic Sitting Balance Ability Fair Standing Balance and Reactions Static Standing Balance Ability Poor Dynamic Standing Balance Ability Poor Device Used FWW Functional Assessments Functional Tests Tinetti Balance and Gait Assessment 05/05 Other Functional Tests Performed Pt unable to stand without UE support of FWW, retro and lateral lean requiring added Min/ Mod A of staff support. M5 PT-IP Objective Assessments Start: 06/02/23 07:50 Freq: NEEDED Status: Active Protocol: Document 06/02/23 13:32 AW (Rec: 06/02/23 14:11 AW [id number]) Orientation Orientation/Cognition Level of Alertness Confusional State Orientation Name,Place Language Function Ability Garbled Speech Safety Awareness Decreased Safety Awareness Comments Pt oriented x 2. Speech was mumbled, coherent ~30% of the time with pt forming short sentences. He was able to follow one step directions for mobility but did not understand directions for MMT. Gross Range of Motion Upper Extremity ROM Assessment Within Functional Limits Lower Extremity ROM Assessment Within Functional Limits Strength Comments Strength Comments Unable to formally assess strength. Pt has functional ROM and greater than 3/5 strength in all planes UE and LE. Coordination Assessment Gross Coordination Gross Coordination Impaired Assessment Finger to Nose Test Severe Impairment Pronation/Supination Test Severe Impairment Foot Tapping Test Severe Impairment Heel on Schultz Test Severe Impairment Sensation Assessment Comments Sensation Comments Unable to assess secondary to cognition Muscle Tone Muscle Tone WNL Yes M6 PT-IP Treatment Start: 06/02/23 07:50 Freq: NEEDED Status: Active Protocol: Document 06/09/23 13:11 SP (Rec: 06/09/23 15:23 SP [id number]) Physical Therapy Treatment Education Education Provided Safety M7 PT-IP Assessment and Plan Start: 06/02/23 07:50 Freq: NEEDED Status: Active Protocol: Document 06/09/23 13:11 SP (Rec: 06/09/23 15:23 SP [id number]) PT Summary Assessment and Plan Potential Rehabilitation Potential Good Summary Impairments Strength,Balance,Coordination, Cognition,Bed Mobility, Transfers,Gait,Activity Tolerance Assessment Summary Pt decreased mobility progress this tx, requires increased Min/Mod A coming to standing with BUE supoprt on chair and Heavy BUE on FWW once in standing. He trialed stand without additional support, retro and lateral leans Min A recovery. Tinetti balance/gait assessment 05/05. Not sure pt is aware the support required this tx, contiuing to state has help at home and can use his exercise equipment to get stronger, when he needs added support for basic coming to standing and mobility with FWW . High fall risk, recommending SNF vs 31/03 available requring additional Min/Mod A support with use of FWW to mobilize this tx, unsure he truly has this support at home . Pt is no where near reported PLOF I in ambulation without AD. Will continue to assess progress. Goals Bed Mobility Goal Independent Transfer Goal Independent,Front Wheeled Walker Gait Goal Independent,Front Wheel Walker Gait Distance 100 Other Goals - Pt climbs 4 steps with rail for safe home entry - Pt progresses transfers and gait to independent with LRAD or no AD Days to Meet Goals 10 Frequency of Treatment Frequency Of Treatment Once a Day Treatment Plan Physical Therapy Treatment Plan Bed Mobility Training,Transfer Training,Gait Training, Therapeutic Exercise,Balance Retraining,Post Op Education, Discharge Planning,Hot or Cold Pack,Neuromuscular Re-ed, Coordination Retraining,Manual Therapy Other Recommendations and Next Treatment Continue STS training, Focus progress gait. Complete SANDHU for further assessment in mobility. Precautions Other Precautions seizure precautions, high falls risk Recommendations To Nursing Amount of Assist Needed 1 Person Assist Discharge Recommendations PT Discharge Recommendations Home with 31/03 Assist Available,SNF Rehab,Home vs SNF Equipment Needed for Home Before FWW Discharge Transportation Needs at Discharge Private Vehicle,Wheelchair/ Cabulance
--- NOTE | 2023-06-09 15:44 | PM.PN.1 ---
Subjective Subjective Interval history: Patient awaiting SNF. No complaints. Has auth can go to SNF tomorrow. Exam Vital Signs (past 8 hours): - 06/09/23 08:14 06/09/23 08:00 06/09/23 08:00 Temperature 97.9 F Pulse Rate 91 H 95 H Respiratory Rate 20 Blood Pressure 104/68 104/68 Pulse Oximetry 96 Oxygen Delivery Method Room Air 06/09/23 08:44 06/09/23 08:05 06/09/23 08:05 Temperature Pulse Rate 86 91 H Respiratory Rate Blood Pressure 104/68 Pulse Oximetry 96 Oxygen Delivery Method Oxygen Delivery Method Room Air Oxygen Flow Rate 0 Narrative Exam Narrative: NAD, mild cog impairment Atraumatic head, EOMI. Neck supple and midline trachea. Lungs CTA, normal rate and effort. Heart RRR, without murmur, gallop, or rub. Abdomen Soft, NT, ND No leg edema. No skin rash. No tremor Objective Labs 06/05/23 04:31 06/07/23 11:10 [facility] Medical History Alcohol use disorder Social History household members: other Smoking Status: Current every day smoker alcohol intake: current Assessment & Plan Assessment & Plan narrative: 62 y/o M admitted for alcohol withdrawal, transferred to ICU for DT's requiring precedex infusion. 1. Acute metabolic encephalopathy with alcohol withdrawal and DTs, resolved -patient had complicated course of treatment including treatment in the ICU with precedex infusion and multiple medications including benzos, lirbium, etc. Now resolved. 2. Acute pancreatitis, POA and resolved -no current symptoms, alcohol related 3. Hypokalemia, new and active. ?- replace and monitor, telemetry ?- replace Mg as noted below. 4. Hypomagnesemia, new and active. ?- continue to follow and replace 5. Tobacco use disorder, POA. -increased nicotine patch to 21mg from 7mg on 05/30 as smoke 2 pack/daily 6. Pancytopenia, POA and improving. ?- suspect due to EtOH use. continue to follow. 7. HFrEF, new in mild exacerbation -diurese and ECHO to assess LVEF. -echo with EF 30-35%, severe LV hypokinesis, mod left pleural effusion -start aspirin, metoprolol, held losartan due to low BP and will continue to hold at this time. Dispo: SNF on 06/10. Auth obtained today. Time Spent With Patient Time with patient: 30 to 49 minutes with 50% spent counseling/coordinating care
[2023-06-09] MEDS: HEPARIN 5,000 UNIT/ML VIAL 5000 UNIT SUBCUT (20:57)
[2023-06-10 00:14] VITALS: BP 92/58; PULSE 80; RESP 18; TEMP 36.6; O2SAT 94
[2023-06-10 07:30] VITALS: BP 90/66; PULSE 78; RESP 16; TEMP 36.5; O2SAT 96
--- NOTE | 2023-06-10 08:04 | PM.DS.1 ---
History of Present Illness History of Present Illness Date Patient Seen: 06/10/23 Chief complaint: drinking water cant keep down/ stomach pain/vomitt Narrative: History is taken largely from the overnight provider, as patient's mental status has decreased and unable to obtain reliable history. Per Dr. Mills, 62 y/o M presented to the ED with abd pain and n/v. no blood reported. started a few days ago mostly lower abd. denies diarrhea. denies cp or sob or cough or fever/chills. pt drinks daily and heavily and says he is not ready to stop drinking but seems needs help since he is having pain and n/v and some withdrawal symptoms. abs CT showed possible distal enteritis. This morning, the patient became more confused and agitated. Attempted phenobarb without success and now improved on precedex. Changed to ICU status. Discharge Providers Provider Date of admission: 05/27/23 23:45 Discharge Date: 06/10/23 Primary care physician: Doctor Lucy MD Consults: 06/01/23 18:25 Consult to Physical Therapy Evaluate & Treat Comment: Physician Instructions: Evaluate and Treat 06/02/23 09:39 Consult to Physical Therapy Evaluate & Treat Comment: Physician Instructions: Evaluate and Treat 06/05/23 11:35 Consult to Speech Therapy Evaluate & Treat Comment: coughing when taking oral meds whole. Physician Instructions: Evaluate and treat 06/06/23 17:52 [place] [facility] [place] Routine Comment: home resources, or convince to go to SNF Discharge provider: Juan C Carlos DO Summary Hospital Course Discharge Diagnosis: 1. Acute metabolic encephalopathy with alcohol withdrawal and DTs, resolved 2. Acute pancreatitis, POA and resolved 3. Hypokalemia, new and active. 4. Hypomagnesemia, new and active. 5. Tobacco use disorder, POA. 6. Pancytopenia, POA and improving. 7. HFrEF, new in mild exacerbation Hospital Course: This is a 62 year old male admitted initially with acute alcoholic pancreatitis and electrolyte abnormalities including hypokalemia and hypomagnesemia due to decreased oral intake and alcohol use. Shortly after admission, he began developing alcohol withdrawal, ultimately requiring transfer to the ICU for precedex infusion after development of DTs. After a few days his encephalopathy and withdrawal improved after precedex was weaned. He did have mild volume overload and echocardiogram was performed after fluids were given during initial presentation. He was found to have a low EF of 30-35% and was started on beta sd, aspirin therapy. Was unable to add losartan due to continued low-normal BP but should be added as an outpatient. Further evaluation for etiology of and continued management of his heart failure is recommended with either PCP or outpatient cardiology referral. He was recommended for SNF after evaluation with PT and OT, where he was transferred to at discharge. Time Spent with Patient Time spent: Greater than 30 minutes Exam Vital Signs (past 8 hours): - 06/10/23 00:14 06/10/23 07:30 Temperature 97.9 F 97.7 F Pulse Rate 80 78 Respiratory Rate 18 16 Blood Pressure 92/58 L 90/66 Pulse Oximetry 94 96 Oxygen Flow Rate 0 0 Oxygen Delivery Method Room Air Oxygen Flow Rate 0 Narrative Exam Narrative: NAD, mild cog impairment Atraumatic head, EOMI. Neck supple and midline trachea. Lungs CTA, normal rate and effort. Heart RRR, without murmur, gallop, or rub. Abdomen Soft, NT, ND No leg edema. No skin rash. No tremor Objective Labs 06/05/23 04:31 06/07/23 11:10 [facility] Medical History Alcohol use disorder Social History household members: other Smoking Status: Current every day smoker alcohol intake: current Discharge Plan Discharge Plan Patient Disposition: SNF Other facility: [facility] Provider Discharge Comment: 62 M admitted with alcohol withdrawal. Also found to have heart failure with reduced EF. Remains weak, transfer to SNF for continuing therapies. Recommend outpatient evaluation with PCP and probable referral to cardiology for further workup of heart failure. Discharge orders & Medications Prescriptions: New acetaminophen 325 mg Tablet 650 mg PO Q6H PRN (Reason: Fever/Mild Pain (1-3)) Qty: 30 0RF aspirin 81 mg Tablet,Delayed Release (Dr/Ec) 81 mg PO DAILY Qty: 30 0RF famotidine [Pepcid AC] 20 mg Tablet 20 mg PO BID Qty: 60 0RF folic acid 1 mg Tablet 1 mg PO DAILY Qty: 25 0RF metoprolol succinate 25 mg Tablet Extended Release 24 Hr 12.5 mg PO DAILY Qty: 15 0RF multivitamin with folic acid [Tab-A-Charlene] 400 mcg Tablet 1 tab PO DAILY Qty: 30 0RF nicotine 21 mg/24 hr Patch 24 Hour 21 mg topical DAILY Qty: 14 0RF thiamine mononitrate (vit B1) 100 mg Tablet 100 mg PO DAILY Qty: 30 0RF Follow up/Referrals: Miscellaneous,Doctor, [Primary Care Provider] - Discharge Health Status Multidrug resistant organism: No MDRO Precautions: [place] Diet/Activity/Treatments Diet: Diet as Tolerated and Regular Liquid consistency: Normal/Thin Food texture: Regular Activity: As tolerated no restrictions Special Rehabilitation Services Reason for rehabilitation: Recovery r/t decondition Rehab type: Physical therapy and Occupational therapy Visit Report/Discharge Packet Stand Alone Forms: Patient Portal/API Discharge Data Primary Care Provider: Lucy,Doctor Discharges patient from system. Discharge Date/Time: 06/10/23 13:27
[2023-06-10] MEDS: FAMOTIDINE 20 MG TABLET PO (09:13)
[2023-06-10] MEDS: MULTIVITAMIN 1 TABLET 1 TAB PO (09:13)
[2023-06-10] MEDS: FOLIC ACID 1 MG TABLET PO (09:13)
[2023-06-10] MEDS: THIAMINE 100 MG TABLET PO (09:13)
[2023-06-10] MEDS: HEPARIN 5,000 UNIT/ML VIAL 5000 UNIT SUBCUT (09:13)
[2023-06-10 09:14] VITALS: BP 90/66
[2023-06-10] MEDS: ASPIRIN EC 81 MG TABLET PO (09:14)
[2023-06-10] MEDS: METOPROLOL ER 25 MG TABLET 12.5 MG PO (09:14)
[2023-06-10] MEDS: NICOTINE 21 MG PATCH TOP (09:14)
--- NOTE | 2023-06-10 10:17 | CM.DPNOTE ---
Called [facility] for transport to [facility] on [address]. Spoke to Mark who could arrange 1300 transport. Aaliyah spoke to Susan who said they do not have a truss driver helper and for us to arrange transportation. I told Mark that [facility] should be billed due to no truss driver helper available at their facility. He said they have an accout for [facility]. Melissa Garcia, [employer] Robotic Weld Technician.
--- NOTE | 2023-06-10 11:52 | PT.IPTN ---
Current Diagnoses Alcohol dependence with withdrawal, unspecified (05/27/23) Physical Therapy Treatment Note M2 PT-IP Current Condition Start: 06/02/23 07:50 Freq: NEEDED Status: Active Protocol: Document 06/09/23 13:11 SP (Rec: 06/09/23 15:23 SP [id number]) Physical Therapy Current Condition Current Condition Evaluation Date 06/02/23 Treatment Diagnosis alcohol withdrawal, seizure history, impaired mobility and gait Onset Date 05/27/23 M3 PT-IP Subjective Start: 06/02/23 07:50 Freq: NEEDED Status: Active Protocol: Document 06/10/23 11:44 AB (Rec: 06/10/23 11:52 AB [id number]) Subjective Physical Therapy Visit Type Type Treatment Note Visit Start Time 11:17 Visit Stop Time 11:43 Total Visit Minutes 26 Physical Therapy Visit Comments Patient Comments Pt presents sitting in chair and is agreeable to PT session this AM. He denies any symptoms. Therapy Pain Assessment Pain Present Pain Present Denied Pain M4 PT-IP Mobility and Gait Start: 06/02/23 07:50 Freq: NEEDED Status: Active Protocol: Document 06/10/23 11:44 AB (Rec: 06/10/23 11:52 AB [id number]) PT-Transfer Assessment Sit to and From Stand Sit to and from Stand Standby Assistance,Use of Upper Extremities Equipment Transfer Assistive Device Gait Belt,Front Wheeled Walker Transfers Transfer Destination Chair Transfer Technique pt ambulated using FWW Transfer Ability Level of Assist Standby Assistance,Use of Upper Extremities Comments Mobility Comments Pt is able to perform STS with SBA today, though uses the back of his legs against chair for balance initially, though this improves with subsequent STS. Pt performed additional treatment as noted below. At end of session, pt returned to chair with all needs met, call light within reach and chair alarm activated. Gait Assessment Gait Gait Assistance Required: Standby Assistance,Contact Guard Assist Distance (Feet) 350 Assistive Devices Assistive Device Gait Belt,Front Wheeled Walker Gait Deviations General Gait Pattern Ataxic,Decreased Stride Length ,Decreased Feet Clearance, Flexed Trunk,Narrow Based Gait Factors Limiting Gait Function Factors Limiting Gait Function Decreased Activity Tolerance, Decreased Strength,Difficulty Following Directions, Incoordination,Poor Balance, Poor Safety Awareness Comments Gait Comments Pt demonstrates improved stability when ambulating with FWW, as he requires SBA/CGA. However, he continues to require mod VCs for proper use of FWW. Stair Climbing Assessment Evaluation Level of Assist On Stairs Contact Guard Assistance Devices Stair Climbing Assistive Devices Left Railing,Right Railing Technique/Endurance Stair Climbing Direction Ascend and Descend Stair Climbing Technique Step to Step Number of Steps Climbed 3 Stair Climbing Set # Repetitions (reps) 1 Comments Stair Climbing Comments Pt is able to ascend with step over step technique, but descends with step to step technique. PT-Balance Assessment Sitting Balance and Reactions Static Sitting Balance Ability Good Dynamic Sitting Balance Ability Fair Standing Balance and Reactions Static Standing Balance Ability Fair Dynamic Standing Balance Ability Poor Device Used FWW M5 PT-IP Objective Assessments Start: 06/02/23 07:50 Freq: NEEDED Status: Active Protocol: Document 06/02/23 13:32 AW (Rec: 06/02/23 14:11 AW [id number]) Orientation Orientation/Cognition Level of Alertness Confusional State Orientation Name,Place Language Function Ability Garbled Speech Safety Awareness Decreased Safety Awareness Comments Pt oriented x 2. Speech was mumbled, coherent ~30% of the time with pt forming short sentences. He was able to follow one step directions for mobility but did not understand directions for MMT. Gross Range of Motion Upper Extremity ROM Assessment Within Functional Limits Lower Extremity ROM Assessment Within Functional Limits Strength Comments Strength Comments Unable to formally assess strength. Pt has functional ROM and greater than 3/5 strength in all planes UE and LE. Coordination Assessment Gross Coordination Gross Coordination Impaired Assessment Finger to Nose Test Severe Impairment Pronation/Supination Test Severe Impairment Foot Tapping Test Severe Impairment Heel on Schultz Test Severe Impairment Sensation Assessment Comments Sensation Comments Unable to assess secondary to cognition Muscle Tone Muscle Tone WNL Yes M6 PT-IP Treatment Start: 06/02/23 07:50 Freq: NEEDED Status: Active Protocol: Document 06/10/23 11:44 AB (Rec: 06/10/23 11:52 AB [id number]) Physical Therapy Treatment Education Education Provided Safety Other Treatments Other Treatment Performed STS 1x5, 1x20 M7 PT-IP Assessment and Plan Start: 06/02/23 07:50 Freq: NEEDED Status: Active Protocol: Document 06/10/23 11:44 AB (Rec: 06/10/23 11:52 AB [id number]) PT Summary Assessment and Plan Potential Rehabilitation Potential Good Summary Impairments Strength,Balance,Coordination, Cognition,Bed Mobility, Transfers,Gait,Activity Tolerance Assessment Summary The pt demonstrates improvement since last PT session, as he is SBA to CGA for functional mobility performed. However he continues to be a high fall risk due to balance deficits, poor safety awareness and poor recall of education provided. He also continues with gait deviations which are increasing his instability while ambulating. The pt is being discharged to SNF, where continued skilled PT is highly recommended in order to improve his deficits, decrease his risk for falls and to increase his level of function and independence. Goals Bed Mobility Goal Independent Transfer Goal Independent,Front Wheeled Walker Gait Goal Independent,Front Wheel Walker Gait Distance 100 Other Goals - Pt climbs 4 steps with rail for safe home entry - Pt progresses transfers and gait to independent with LRAD or no AD Days to Meet Goals 10 Frequency of Treatment Frequency Of Treatment Discharge Treatment Plan Physical Therapy Treatment Plan Bed Mobility Training,Transfer Training,Gait Training, Therapeutic Exercise,Balance Retraining,Post Op Education, Discharge Planning,Hot or Cold Pack,Neuromuscular Re-ed, Coordination Retraining,Manual Therapy Other Recommendations and Next Treatment Discharge from PT. Focus Precautions Other Precautions seizure precautions, high falls risk Recommendations To Nursing Amount of Assist Needed 1 Person Assist Discharge Recommendations PT Discharge Recommendations Home with 24/7 Assist Available,SNF Rehab,Home vs SNF Equipment Needed for Home Before FWW Discharge Transportation Needs at Discharge Private Vehicle,Wheelchair/ Cabulance
--- NOTE | 2023-06-10 11:56 | PC.NURSE ---
Report called to Melva PINON at [facility] and all questions answered.
--- NOTE | 2023-06-10 12:05 | CM.DPC ---
DCP Continued: CHARGE AUDITOR reviewed EMR. Per hospitalist, medically cleared to d/c to [facility] today. CHARGE AUDITOR spoke with Susan at [facility]. Unable to provide transport today, we would need to set up transport with a cabulance. Able to accept patient around 1pm-on. CM Shank Skinner Melissa arranged transport through [facility] at 1300, updated the PATIENT ACCESS DIRECTOR, sent final clinicals to [facility], and placed signed med list and PASRR in red folder. CHARGE AUDITOR provided RN with update. CHARGE AUDITOR updated patient on d/c plan. Patient in agreement. CHARGE AUDITOR called son Sunil to update him. Sunil appreciative of the information. Plan: patient to d/c to [facility] today at 1300. CM team will continue to follow closely. RICHARD Glez
== END 2023-06-10 13:27 | DRG 775 ==
LOC: ED 23:45 → ICU 05-28 07:51 → AC 05-28 14:25
PROVIDERS: Internal Medicine; Student in an Organized Health Care Education/Training Program; Admitting Provider Hospitalist; Emergency Provider Emergency Medicine; Family Provider Nurse Practitioner Family; Referring Provider Emergency Medicine; Visit Provider Hospitalist
DX: F10.231 Alcohol dependence with withdrawal delirium (principal); D61.811 Other drug-induced pancytopenia; K85.90 Acute pancreatitis without necrosis or infection, unspecified; E87.6 Hypokalemia; E83.42 Hypomagnesemia; J81.1 Chronic pulmonary edema; G93.41 Metabolic encephalopathy; R00.0 Tachycardia, unspecified; I50.20 Unspecified systolic (congestive) heart failure; Y90.6 Blood alcohol level of 120-199 mg/100 ml; F17.210 Nicotine dependence, cigarettes, uncomplicated
CPT/HCPCS: 36415; 36592; 36600; 71045; 74177; 76705; 80048; 80053; 80076; 80320; 81003; 81015; 82805; 82962; 83690; 83735; 84132; 84145; 84478; 84484; 85025; 85027; 87633; 87797; 92610; 93005; 93306; 96365; 96375; 97110; 97112; 97116; 97162; 97530; 99232; 99284; 99291; A9270; J0612; J1630; J1642; J1644; J1940; J2060; J2543; J2560; J3475; J7121; P9041; Q9967

== ENCOUNTER 2023-10-29 19:20 | Emergency (ER) | payer MEDICARE, MEDICAID, SELFPAY ==
[2023-10-29] VITALS (11 sets, daily range): BP systolic 99–112; BP diastolic 66–76; PULSE 81–102; RESP 16–18; TEMP 36.7; O2SAT 95–98; BMI 24.3
--- NOTE | 2023-10-29 19:58 | DI.CT.S_ITS ---
PROCEDURE: CT HEAD/BRAIN WO CON INDICATIONS: MULTIPLE FALLS, GEN WEAKNESS, ETOH TECHNIQUE: Noncontrast 4.5 mm thick angled axial sections acquired from the foramen magnum to the vertex, with coronal and sagittal reformats. For radiation dose reduction, the following was used: automated exposure control, adjustment of mA and/or kV according to patient size. COMPARISON: None. FINDINGS: Image quality: Diagnostic. CSF spaces: Basal cisterns are patent. No extra-axial fluid collections. The ventricles are symmetric in size and shape. Brain: No intracranial bleeds or masses. There is cerebral volume loss for age, with resultant ventricular and sulcal prominence. There are periventricular and deep white matter chronic small vessel ischemic changes. There is intracranial internal carotid artery atherosclerosis. Skull and face: Calvarium and visualized facial bones appear intact, without suspicious lesions. Sinuses: Scattered ethmoid sinus mucosal thickening. Layering fluid in the bilateral maxillary sinuses with associated bubbly lucencies on the right. Sphenoid sinuses appear clear. Visualized frontal sinuses are also clear. Bilateral mastoid air cells are clear. IMPRESSION: 1. CT head without acute intracranial abnormalities or acute calvarial fractures. 2. Age-related senescent changes and sequela of chronic small vessel ischemic disease. 3. Scattered ethmoid and bilateral maxillary sinus disease. Acute on chronic appearance involving the right maxillary sinus. Dictated by: Chad Du M.D. on 10/29/2023 at 21:14 Approved by: Chad Du M.D. on 10/29/2023 at 21:15
--- NOTE | 2023-10-29 19:58 | DI.RAD.S_ITS ---
PROCEDURE: XR CHEST 1V INDICATIONS: MULTIPLE FALLS, GEN WEAKNESS, ETOH TECHNIQUE: One view of the chest was acquired. COMPARISON: [facility], CR, XR CHEST 1V, 06/05/2023, 11:34. FINDINGS: Surgical changes and devices: None. Lungs and pleura: Lungs are clear. No pleural effusions or pneumothorax. Mediastinum: Mediastinal contours appear normal. Heart size is normal. Bones and chest wall: No suspicious bony lesions. Overlying soft tissues appear unremarkable. IMPRESSION: No acute cardiopulmonary abnormalities or focal airspace disease. Dictated by: Chad Du M.D. on 10/29/2023 at 21:13 Approved by: Chad Du M.D. on 10/29/2023 at 21:13
--- NOTE | 2023-10-29 19:59 | ED.FALL ---
HPI - Fall General Chief Complaint: Fall Stated Complaint: unnable to walk, hx of seizures Time Seen by Provider: 10/29/23 19:52 Source: patient and family Mode of arrival: Wheelchair History of Present Illness HPI Narrative: 63-year-old male with history of alcohol use disorder (3 pints of liquor daily), tobacco use disorder presents with his son by private vehicle for generalized weakness and frequent falls. Son states that patient lives with a roommate who helps to cover rent but does not provide any medical care to the patient. Patient has a history of alcohol withdrawal seizures in sinus concern that patient may have another 1. Patient had a pt of liquor earlier this morning. Son is also concerned because the patient is having difficulty moving his right lower leg. Patient states that his knee is hurting him which is why he has not able to move the leg. Related Data Previous Rx's Medication Instructions Recorded acetaminophen 325 mg tablet 650 mg (2 x 325 mg) PO Q6H PRN 06/10/23 Fever/Mild Pain (1-3) #30 tabs aspirin 81 mg tablet,delayed 81 mg PO DAILY #30 tabs 06/10/23 release famotidine 20 mg tablet (Pepcid AC) 20 mg PO BID #60 tabs 06/10/23 folic acid 1 mg tablet 1 mg PO DAILY #25 tabs 06/10/23 metoprolol succinate 25 mg 12.5 mg (1/2 x 25 mg) PO DAILY #15 06/10/23 tablet,extended release 24 hr tabs multivitamin with folic acid 400 1 tab PO DAILY #30 tabs 06/10/23 mcg tablet (Tab-A-Charlene) nicotine 21 mg/24 hr daily 21 mg topical DAILY #14 ea 06/10/23 transdermal patch thiamine mononitrate (vit B1) 100 100 mg PO DAILY #30 tabs 06/10/23 mg tablet sulfamethoxazole 800 1 tab PO Q12H #14 tabs 10/30/23 mg-trimethoprim 160 mg tablet Allergies Allergy/AdvReac Type Severity Reaction Status Date / Time No Known Drug Allergies Allergy Verified 05/27/23 18:30 Review of Systems Review of Systems Narrative: Negative except as noted above Patient History Medical History Alcohol use disorder Social History household members: other Smoking Status: Current every day smoker alcohol intake: current Smoking Status: Current every day smoker tobacco type: cigarettes alcohol intake frequency: 3 or more drinks per day Substance Use Type: does not use Exam Initial Vital Signs Initial Vital Signs: Vital Signs Temperature 98.1 F 10/29/23 19:49 Pulse Rate 102 H 10/29/23 19:49 Respiratory Rate 16 10/29/23 19:49 Blood Pressure 99/66 10/29/23 19:49 Pulse Oximetry 96 10/29/23 19:49 Oxygen Delivery Method Room Air 10/29/23 19:49 Const: Awake, alert, appears older than stated age, debilitated, chronically unwell Eyes: PERRL, EOMI, conjunctiva normal Cardiac: regular rate, regular rhythm RESP: unlabored, clear bilaterally GI: Atraumatic, soft, nontender MSK: Atraumatic, full range of motion, pulses equal Skin: Warm, Dry, intact, no rashes Neuro: AO x3, CN II-XII grossly intact, moves all extremities Course Orders Ordered: ED Orders 10/29/23 19:45 CBC Auto Diff [Complete Blood Count AUTO DIFF] Stat CMP [Comprehensive Metabolic Panel] Stat Ethanol (ETOH) Stat MAG [Magnesium] Stat PT [Prothrombin Time INR] Stat TSH [Thyroid Stimulating Hormone] Stat Troponin & CK Cardiac Panel Stat 10/29/23 19:58 CT head/brain wo con Stat Chest [XR chest 1V] Stat EKG-12 Lead Stat 10/29/23 20:29 Ammonia (NH3) Stat Type and Screen Stat 10/29/23 21:08 XR knee RT 3V Stat 10/29/23 22:27 Ictotest Urine Stat UA Complete [Urinalysis and Microscopic] Stat Urine Culture Stat Urine Drug Screen, Rapid Stat 10/29/23 23:58 Consult to [employer] [facility] - Or Director Stat Discontinued Medications Folic Acid (Folic Acid 1 Mg Tablet) 1 mg PO NOW ONE Stop: 10/29/23 19:59 Last Admin: 10/29/23 20:34 Dose: 1 mg Documented By: Sodium Chloride (Normal Saline 0.9%) 1,000 mls @ 1,000 mls/hr IV BOLUS ONE Stop: 10/29/23 20:57 Last Infusion: 10/29/23 22:06 Dose: Infused Documented By: Admin: 10/29/23 20:33 Dose: 1,000 mls/hr Documented By: AB Thiamine HCl 200 mg/ Sodium (Chloride) 102 mls @ 408 mls/hr IV NOW ONE Stop: 10/29/23 19:59 Last Infusion: 10/29/23 20:58 Dose: Infused Documented By: Admin: 10/29/23 20:34 Dose: 408 mls/hr Documented By: Magnesium Sulfate (Magnesium Sulfate) 2 gm in 50 mls @ 150 mls/hr IV NOW ONE Stop: 10/29/23 21:06 Last Infusion: 10/29/23 21:50 Dose: Infused Documented By: Co-signed By: OW Admin: 10/29/23 21:24 Dose: 150 mls/hr Documented By: Co-signed By: PRICE Insulin Human Regular (Insulin Regular 100 Unit/Ml 3 Ml Vial) 5 unit IV NOW ONE Stop: 10/29/23 20:47 Last Admin: 10/29/23 21:39 Dose: Not Given Documented By: Potassium Chloride (Potassium Chloride 20 Meq/15 Ml Udc) 40 meq PO NOW ONE Stop: 10/29/23 20:55 Last Admin: 10/29/23 21:30 Dose: 40 meq Documented By: Vital Signs Vital signs: Vital Signs - 8 hr 10/29/23 19:49 10/29/23 19:52 10/29/23 19:53 Temperature 98.1 F Pulse Rate 102 H 93 H 92 H Respiratory Rate 16 Blood Pressure 99/66 Pulse Oximetry 96 97 96 Oxygen Delivery Method Room Air 10/29/23 19:53 10/29/23 20:00 10/29/23 20:00 Temperature Pulse Rate 100 H Respiratory Rate Blood Pressure 111/76 103/74 Pulse Oximetry 97 Oxygen Delivery Method 10/29/23 20:40 10/29/23 21:00 10/29/23 21:30 Temperature Pulse Rate 92 H 90 101 H Respiratory Rate Blood Pressure Pulse Oximetry 97 98 97 Oxygen Delivery Method 10/29/23 21:51 10/29/23 21:51 10/29/23 22:00 Temperature Pulse Rate 81 81 Respiratory Rate Blood Pressure 105/71 Pulse Oximetry 95 97 Oxygen Delivery Method 10/29/23 22:00 10/29/23 22:05 10/29/23 22:10 Temperature Pulse Rate 84 91 H Respiratory Rate 18 Blood Pressure 112/72 Pulse Oximetry 97 95 Oxygen Delivery Method MDM - Fall Differential Diagnosis Differential diagnosis: Likely syncope, dislocation of shoulder region and fracture of wrist Lab Data 10/29/23 19:45 10/29/23 19:45 Labs: Lab Results 10/29/23 10/29/23 10/29/23 Range/Units 19:45 20:29 22:27 WBC 6.4 (4.5-11.0) X10^3/uL RBC 3.62 L (4.5-5.9) X10^6/uL Hgb 13.1 L (13.5-17.5) g/dL Hct 37.1 L (41-53) % MCV 102.4 H (80-100) fL MCH 36.0 H (26-34) PG MCHC 35.2 (30-36) % RDW 13.8 (11.6-14.8) % Plt Count 130 L (150-400) X10^3/uL Neut % (Auto) 78.5 H (50-75) % Lymph % (Auto) 12.4 L (25-40) % [place] % (Auto) 8.5 (3-14) % Eos % (Auto) 0.0 L (2-4) % Baso % (Auto) 0.6 (0-2) % Neut # (Auto) 5000 (2154-9604) /uL Lymph # (Auto) 800 L (3107-3340) /uL [place] # (Auto) 500 (0-900) /uL Eos # (Auto) 0 (0-450) /uL Baso # (Auto) 0 (0-100) /uL PT 10.6 (9.4-12.5) SECONDS INR 0.9 (0.9-1.3) Sodium 132 L (137-145) mmol/L Potassium 2.9 L (3.4-5.1) mmol/L Chloride 87 L (98-107) mmol/L Carbon Dioxide 31 (22-32) mmol/L BUN 10 (9-20) mg/dL Creatinine 0.60 L (0.66-1.25) mg/dL Estimated GFR > 60 (>60) mL/min BUN/Creatinine Ratio 16.7 (6-22) Glucose 104 (80-110) mg/dL Calcium 9.4 (8.4-10.2) mg/dL Magnesium 1.4 L (1.6-2.3) mg/dL Total Bilirubin 2.1 H (0.2-1.3) mg/dL AST 110 H (17-59) IU/L ALT 36 (<50) IU/L Alkaline Phosphatase 79 (38-126) U/L Ammonia < 9 L (9-30) umol/L Total Creatine Kinase 257 H (55-170) U/L Troponin I < 0.012 (0.01-0.034) ng/mL Total Protein 8.0 (6.3-8.2) g/dL Albumin 4.4 (3.5-5.0) g/dL Globulin 3.6 (1.7-4.1) g/dL Albumin/Globulin Ratio 1.2 (1.0-2.8) TSH 2.03 (0.47-4.68) uIU/mL Urine Color Anni Urine Appearance Clear Urine pH 6.5 (4.5-8.0) Ur Specific [place] 1.020 (1.000-1.035) Urine Protein 1+ H (Negative) Urine Glucose (UA) Negative (Negative) g/dL Urine Ketones 1+ H (NEGATIVE) Urine Occult Blood Negative (Negative) Urine Nitrate Positive H (Negative) Urine Bilirubin 2+ H (NEGATIVE) Ur Bilirubin Confirm TNP Urine Urobilinogen >=8.0 (0.2) E.U./dL Ur Leukocyte Esterase Negative (NEGATIVE) Urine RBC None seen (0-5/HPF) Urine WBC 0-1/hpf (0-5/HPF) Ur Squamous Epith Cells None seen (0-5/HPF) Urine Bacteria Occasional (0-1) (None) Urine Mucus 1+ H (Negative) Ur Culture Indicated? Specimen cultured Vol Urine Centrifuged 10ml (spun) U Opiates 300ng/mL cut Negative (Negative) Ur Oxycodone Screen Negative (Negative) Urine Methadone Screen Negative (Negative) Ur Barbiturates Screen Negative (Negative) U Tricyclic Antidepress Negative (Negative) Ur Phencyclidine Scrn Negative (Negative) Ur Amphetamines Screen Negative (Negative) U Methamphetamines Scrn Negative (Negative) Ur MDMA Scrn (Ecstasy) Negative (Negative) U Benzodiazepines Scrn Negative (Negative) Urine Cocaine Screen Negative (Negative) U Marijuana (THC) Screen Negative (Negative) Urine Specific [place] (Normal) Ethyl Alcohol < 10 ( - 10) mg/dL Ur Creatinine (Normal) Blood Type A Positive Antibody Screen Negative 10/29/23 Range/Units 22:27 WBC (4.5-11.0) X10^3/uL RBC (4.5-5.9) X10^6/uL Hgb (13.5-17.5) g/dL Hct (41-53) % MCV (80-100) fL MCH (26-34) PG MCHC (30-36) % RDW (11.6-14.8) % Plt Count (150-400) X10^3/uL Neut % (Auto) (50-75) % Lymph % (Auto) (25-40) % [place] % (Auto) (3-14) % Eos % (Auto) (2-4) % Baso % (Auto) (0-2) % Neut # (Auto) (7630-4525) /uL Lymph # (Auto) (8491-5286) /uL [place] # (Auto) (0-900) /uL Eos # (Auto) (0-450) /uL Baso # (Auto) (0-100) /uL PT (9.4-12.5) SECONDS INR (0.9-1.3) Sodium (137-145) mmol/L Potassium (3.4-5.1) mmol/L Chloride (98-107) mmol/L Carbon Dioxide (22-32) mmol/L BUN (9-20) mg/dL Creatinine (0.66-1.25) mg/dL Estimated GFR (>60) mL/min BUN/Creatinine Ratio (6-22) Glucose (80-110) mg/dL Calcium (8.4-10.2) mg/dL Magnesium (1.6-2.3) mg/dL Total Bilirubin (0.2-1.3) mg/dL AST (17-59) IU/L ALT (<50) IU/L Alkaline Phosphatase (38-126) U/L Ammonia (9-30) umol/L Total Creatine Kinase (55-170) U/L Troponin I (0.01-0.034) ng/mL Total Protein (6.3-8.2) g/dL Albumin (3.5-5.0) g/dL Globulin (1.7-4.1) g/dL Albumin/Globulin Ratio (1.0-2.8) TSH (0.47-4.68) uIU/mL Urine Color Urine Appearance Urine pH Normal (4.5-8.0) Ur Specific [place] (1.000-1.035) Urine Protein (Negative) Urine Glucose (UA) (Negative) g/dL Urine Ketones (NEGATIVE) Urine Occult Blood (Negative) Urine Nitrate (Negative) Urine Bilirubin (NEGATIVE) Ur Bilirubin Confirm Urine Urobilinogen (0.2) E.U./dL Ur Leukocyte Esterase (NEGATIVE) Urine RBC (0-5/HPF) Urine WBC (0-5/HPF) Ur Squamous Epith Cells (0-5/HPF) Urine Bacteria (None) Urine Mucus (Negative) Ur Culture Indicated? Vol Urine Centrifuged U Opiates 300ng/mL cut (Negative) Ur Oxycodone Screen (Negative) Urine Methadone Screen (Negative) Ur Barbiturates Screen (Negative) U Tricyclic Antidepress (Negative) Ur Phencyclidine Scrn (Negative) Ur Amphetamines Screen (Negative) U Methamphetamines Scrn (Negative) Ur MDMA Scrn (Ecstasy) (Negative) U Benzodiazepines Scrn (Negative) Urine Cocaine Screen (Negative) U Marijuana (THC) Screen (Negative) Urine Specific [place] Normal (Normal) Ethyl Alcohol ( - 10) mg/dL Ur Creatinine Normal (Normal) Blood Type Antibody Screen Treatment and disposition Social Determinants of Health that impact treatment or disposition: Alcohol abuse, tobacco abuse Shared decision making:: With son and patient [facility] Narrative Medical decision making narrative: Chronically unwell patient presenting for multiple falls, difficulty in ambulating. Son is concerned that patient may suffer a seizure. Patient has no obvious musculoskeletal abnormalities, patient points to his knee as a source of pain, however there was no deformity, no reproducible tenderness to palpation in his ankles, knees, hips. Laboratory work and imaging ordered. Thiamine and folic acid ordered. Patient shows no signs of alcohol withdrawal at this time. Laboratory work is reviewed. Hemoglobin 13.1, which is baseline. Sodium 132, potassium 2.9, chloride 87, creatinine 0.6, magnesium 1.4, T bili 2.1. Ammonia undetectable. Patient given repletion of potassium and magnesium. He was status post [address] of the brain negative for acute findings. Chest x-ray negative for infection. X-ray of the right knee, which the patient stated is painful for him is negative for fracture. Patient was ambulatory unassisted to the bathroom with a walker. Urinalysis has nitrites and trace bacteria of uncertain significance, however based on the patient's condition will empirically treat with antibitoics. Patient and son informed of all lab and imaging findings. I highly encouraged the patient to seek treatment for alcohol cessation as continued alcohol use we will accelerate his decline and overall deconditioning. Patient states that he will consider detox, but not right now. Son states that he will check on the patient at home. Community detox resources provided to patient and son at discharge. Discharge Plan Departure Patient Disposition: Home Clinical Impression: Hypokalemia, Hypomagnesemia, Generalized weakness, Multiple falls, Alcohol use disorder Instructions: DI for Alcohol Use Disorder, DI for Hypokalemia, How to Prevent Falls Activity Restrictions/Additional Instructions: WE CALLED [facility] AND THEY DO NOT HAVE AVAILABLE BEDS TONIGHT. WE PLACED A CONSULT TO OUR ADAPTIVE PHYSICAL EDUCATION TEACHER TO REACH OUT TO YOU GUYS TOMORROW ABOUT DETOX RESOURCES. A WALKER IS SENT HOME WITH YOU TO HELP YOU WALK AROUND YOUR APARTMENT. USE THIS TO PREVENT FALLS Prescriptions: New sulfamethoxazole-trimethoprim 800-160 mg tablet 1 tab PO Q12H Qty: 14 0RF No Action acetaminophen 325 mg Tablet 650 mg PO Q6H PRN (Reason: Fever/Mild Pain (1-3)) Qty: 30 0RF aspirin 81 mg Tablet,Delayed Release (Dr/Ec) 81 mg PO DAILY Qty: 30 0RF famotidine [Pepcid AC] 20 mg Tablet 20 mg PO BID Qty: 60 0RF folic acid 1 mg Tablet 1 mg PO DAILY Qty: 25 0RF metoprolol succinate 25 mg Tablet Extended Release 24 Hr 12.5 mg PO DAILY Qty: 15 0RF multivitamin with folic acid [Tab-A-Charlene] 400 mcg Tablet 1 tab PO DAILY Qty: 30 0RF nicotine 21 mg/24 hr Patch 24 Hour 21 mg topical DAILY Qty: 14 0RF thiamine mononitrate (vit B1) 100 mg Tablet 100 mg PO DAILY Qty: 30 0RF Referrals: Miscellaneous,Doctor, MD [Primary Care Provider] - Stand Alone Forms: Patient Portal/API
[2023-10-29 20:12] LABS: Add Manual Diff / Slide Review NO; Basophils Absolute Auto 0 /uL (0-100); Basophils Percent Auto 0.6 % (0-2); Eosinophils Absolute Auto 0 /uL (0-450); Hematocrit 37.1 % (41-53); Hemoglobin 13.1 g/dL (13.5-17.5); Lymphocytes Absolute Auto 800 /uL (1100-4500); Lymphocytes Percent Auto 12.4 % (25-40); Mean Corpuscular HGB Conc 35.2 % (30-36); Mean Corpuscular Volume 102.4 fL (80-100); Monocytes Absolute Auto 500 /uL (0-900); Monocytes Percent Auto 8.5 % (3-14); Neutrophils Absolute Auto 5000 /uL (1500-7000); Neutrophils Percent Auto 78.5 % (50-75); Platelet Count 130 X10^3/uL (150-400); Red Blood Cell Count 3.62 X10^6/uL (4.5-5.9); Red Cell Distribution Width 13.8 % (11.6-14.8); White Blood Cell Count 6.4 X10^3/uL (4.5-11.0)
[2023-10-29 20:14] LABS: INR 0.9 (0.9-1.3); Prothrombin Time 10.6 SECONDS (9.4-12.5)
[2023-10-29 20:21] LABS: Alanine Aminotransferase 36 IU/L (<50); Albumin 4.4 g/dL (3.5-5.0); Albumin Globulin Ratio 1.2 (1.0-2.8); Alkaline Phosphatase 79 U/L (38-126); Aspartate Aminotransferase 110 IU/L (17-59); BUN Creatinine Ratio 16.7 (6-22); Bilirubin Total 2.1 mg/dL (0.2-1.3); Blood Urea Nitrogen 10 mg/dL (9-20); Calcium 9.4 mg/dL (8.4-10.2); Carbon Dioxide 31 mmol/L (22-32); Chloride 87 mmol/L (98-107); Creatine Kinase 257 U/L (55-170); Estimated Glomerular Filt Rate > 60 mL/min (>60); Ethanol (ETOH) < 10 mg/dL; Globulin 3.6 g/dL (1.7-4.1); Glucose 104 mg/dL (80-110); HEMOLYSIS < 15 (0-50); Magnesium 1.4 mg/dL (1.6-2.3); Potassium 2.9 mmol/L (3.4-5.1); Sodium 132 mmol/L (137-145)
[2023-10-29 20:32] LABS: Troponin I < 0.012 ng/mL (0.01-0.034)
[2023-10-29] MEDS: SODIUM CHLORIDE 0.9% 1,000 ML 1000 ML IV (20:33)
[2023-10-29] MEDS: FOLIC ACID 1 MG TABLET PO (20:34)
[2023-10-29] MEDS: THIAMINE 200 MG in SODIUM CHLORIDE 0.9% 100 ML 408 MG IV (20:34)
[2023-10-29 20:45] LABS: Ammonia (NH3) < 9 umol/L (9-30)
[2023-10-29 20:51] LABS: Thyroid Stimulating Hormone 2.03 uIU/mL (0.47-4.68)
--- NOTE | 2023-10-29 21:08 | DI.RAD.S_ITS ---
PROCEDURE: XR KNEE RT 3V INDICATIONS: MULTIPLE FALLS, R KNEE PAIN TECHNIQUE: 3 views of the knee were acquired. COMPARISON: None. FINDINGS: Bones: No fractures or dislocations. No suspicious bony lesions. Mild tricompartmental degenerative changes. Soft tissues: No joint effusion. No suspicious soft tissue calcifications. Moderate vascular calcifications. IMPRESSION: No acute bony abnormality or significant effusion. If there are persistent symptoms or clinical suspicion for pathology, then repeat radiographs or advanced imaging (CT or MRI) may be considered for further evaluation. Dictated by: Cahd Du M.D. on 10/29/2023 at 22:10 Approved by: Chad Du M.D. on 10/29/2023 at 22:10
[2023-10-29] MEDS: MAGNESIUM SULFATE 2 GM/50 ML PIGGYBACK IV (21:24)
[2023-10-29] MEDS: POTASSIUM CHLORIDE 20 MEQ/15 ML UDC 40 MEQ PO (21:30)
--- NOTE | 2023-10-29 22:47 | PC.NURSE ---
Pt ambulated to bathroom, unsteady gait, but did well with FWW.
[2023-10-29 23:06] LABS: Ur Creatinine Normal (Normal); Ur Specific Gravity Normal (Normal); Urine pH Normal (Normal)
[2023-10-29 23:07] LABS: Appearance Urine UA CLEAR; Bilirubin Urine UA 2+ (NEGATIVE); Color Urine UA Amber; Glucose Urine UA NEGATIVE (Negative); Ketones Urine UA 1+ (NEGATIVE); Leukocyte Esterase Urine UA NEGATIVE (NEGATIVE); Nitrite Urine UA POSITIVE (Negative); Occult Blood Urine UA NEGATIVE (Negative); Protein Urine UA 1+ (Negative); UR Morphine/Opiate cutoff 300 Negative (Negative); Urine Amphetamines Negative (Negative); Urine Barbiturates Negative (Negative); Urine Benzodiazepines Negative (Negative); Urine Cocaine Negative (Negative); Urine MDMA Negative (Negative); Urine Methadone Negative (Negative); Urine Methamphetamines Negative (Negative); Urine Oxycodone Negative (Negative); Urine Phencyclidine Negative (Negative); Urine Tetrahydrocannabinol Negative (Negative); Urine Tricyclic Antidepressant Negative (Negative); Urobilinogen Urine UA >=8.0 E.U./dL (0.2); pH Urine UA 6.5 (4.5-8.0)
[2023-10-29 23:08] LABS: Urine Volume 10mL (spun)
[2023-10-29 23:26] LABS: Bacteria Urine Occasional (0-1); Culture Indicated Urine Specimen Cultured; Mucus Urine 1+ (Negative); RBC Urine None Seen (0-5/HPF); Squamous Epithelial Cell Urine None Seen (0-5/HPF); WBC Urine 0-1/HPF (0-5/HPF)
== END 2023-10-30 00:33 | disposition home or self-care (01) ==
PROVIDERS: Emergency Provider Emergency Medicine; Family Provider Nurse Practitioner Family
DX: E87.6 Hypokalemia (principal); E83.42 Hypomagnesemia; R53.1 Weakness; R29.6 Repeated falls; F10.90 Alcohol use, unspecified, uncomplicated
CPT/HCPCS: 36415; 70450; 71045; 73562; 80053; 80305; 80320; 81001; 82140; 82550; 83735; 84443; 84484; 85025; 85610; 86850; 86900; 86901; 87086; 96365; 99284; J3475

== ENCOUNTER 2024-08-08 15:34 | Emergency (ER) | payer MEDICARE, MEDICAID, SELFPAY ==
[2024-08-08] VITALS (32 sets, daily range): BP systolic 86–116; BP diastolic 50–76; PULSE 44–225; RESP 11–42; TEMP 36.3; O2SAT 91–99; BMI 20.1
--- NOTE | 2024-08-08 15:54 | ED_ITS ---
HPI - Nausea/Vomiting/Diarrhea <Smithaclifford Cabrera, - Last Filed: 08/09/24 07:12> General Chief complaint: Nausea/Vomiting/Diarrhea Stated complaint: vomiting, diarrhea, weakness Time Seen by Provider: 08/08/24 15:54 Source: patient, family, RN notes reviewed and old records reviewed ([facility] 07/28 report) Mode of arrival: Family Vehicle Limitations: no limitations History of Present Illness HPI Narrative: 63-year-old male with a history of chronic alcohol use disorder who presents with complaint of nausea and vomiting for the past several weeks patient states he has not having any abdominal pain. States he has pain everywhere when asked if he has any pain. Patient states he has had diarrhea as well. He describes emesis has been liquidy water like. 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 States he throws up mostly in the morning. States he has been able to drink some liquids but sometimes has difficulty. States he has had diarrhea typically about twice daily describes it as a small amount very dark coloration. Patient states no mucus or foul odor. Denies any urinary changes such as dysuria urgency or frequency. His son states his urine is quite dark. Patient states it does seem that dark. Denies any fevers no cold cough congestion, no chest pain or shortness of breath. No dizziness. Patient was seen at [facility] had a CT which showed colitis with some thickening at the left and right colon as well as a focal decreased density in the distal duodenal C-loop could represent fluid versus mass with irregular margins and was recommended for upper GI/endoscopy. Patient states he has a appointment scheduled in the next week. He states he does not take any medications regularly. He denies any prior surgeries. Denies any drug allergies. Does use tobacco daily, states drinks 2 drinks daily, denies any recreational drugs. Kari Kaufman is his primary care provider. Related Data Previous Rx's Medication Instructions Recorded acetaminophen 325 mg tablet 650 mg (2 x 325 mg) PO Q6H PRN 06/10/23 Fever/Mild Pain (1-3) #30 tabs aspirin 81 mg tablet,delayed 81 mg PO DAILY #30 tabs 06/10/23 release famotidine 20 mg tablet (Pepcid AC) 20 mg PO BID #60 tabs 06/10/23 folic acid 1 mg tablet 1 mg PO DAILY #25 tabs 06/10/23 metoprolol succinate 25 mg 12.5 mg (1/2 x 25 mg) PO DAILY #15 06/10/23 tablet,extended release 24 hr tabs multivitamin with folic acid 400 1 tab PO DAILY #30 tabs 06/10/23 mcg tablet (Tab-A-Charlene) nicotine 21 mg/24 hr daily 21 mg topical DAILY #14 ea 06/10/23 transdermal patch thiamine mononitrate (vit B1) 100 100 mg PO DAILY #30 tabs 06/10/23 mg tablet sulfamethoxazole 800 1 tab PO Q12H #14 tabs 10/30/23 mg-trimethoprim 160 mg tablet Allergies Allergy/AdvReac Type Severity Reaction Status Date / Time No Known Drug Allergies Allergy Verified 08/08/24 15:54 Review of Systems <Smitha Cabrera DO - Last Filed: 08/09/24 07:12> Review of Systems ROS Unobtainable: All systems reviewed & are unremarkable except as noted in HPI and below Patient History <Smitha Cabrera DO - Last Filed: 08/09/24 07:12> Medical History Alcohol use disorder Social History household members: other Smoking Status: Current every day smoker alcohol intake: current Smoking Status: Current every day smoker tobacco type: cigarettes alcohol intake frequency: 0-2 drinks per day Substance Use Type: does not use Exam <Smitha Cabrera DO - Last Filed: 08/09/24 07:12> Narrative Exam Narrative: GENERAL: Alert and oriented x three, male in mild distress, icterus, no pallor HEENT: Head normocephalic, atraumatic, EOMI, pupils reactive, face symmetric, moist mucous membranes NECK: Supple, full range of motion CARDIOVASCULAR: Regular rate and rhythm without murmurs, rubs or gallops. No JVD. No edema bilateral lower extremities. RESPIRATORY: Breath sounds equal bilaterally, no wheezes rales or rhonchi. ABDOMEN: Soft, nontender. Nondistended. Normoactive bowel sounds all 4 quadrants. No guarding or rebound, rigidity, no mass : No CVA tenderness EXTREMITIES: Normal range of motion, no clubbing or edema. Neurovascularly intact NEUROLOGICAL: Cranial nerves II through XII grossly intact. Moving all extremities SKIN: Warm, dry, no petechiae, no rashes or lesions. Initial Vital Signs Initial Vital Signs: Vital Signs Pulse Oximetry 96 08/08/24 15:40 <Smitha Mccauley MD - Last Filed: 08/08/24 23:13> Initial Vital Signs Initial Vital Signs: Vital Signs Pulse Oximetry 96 08/08/24 15:40 Course <Smitha Cabrera DO - Last Filed: 08/09/24 07:12> Orders Ordered: Discontinued Medications Folic Acid (Folic Acid 1 Mg Tablet) 1 mg PO NOW ONE Stop: 08/08/24 18:07 Last Admin: 08/08/24 18:50 Dose: 1 mg Documented By: ANTONIO Sodium Chloride (Normal Saline 0.9%) 1,000 mls @ 1,000 mls/hr IV BOLUS ONE Stop: 08/08/24 17:03 Last Infusion: 08/08/24 18:05 Dose: Infused Documented By: Admin: 08/08/24 16:42 Dose: 1,000 mls/hr Documented By: ELDER Calcium Gluconate 4.65 meq/ (Sodium Chloride) 60 mls @ 180 mls/hr IV NOW ONE Stop: 08/08/24 17:01 Last Infusion: 08/08/24 18:05 Dose: Infused Documented By: Admin: 08/08/24 17:28 Dose: 180 mls/hr Documented By: ANTONIO Magnesium Sulfate (Magnesium Sulfate) 2 gm in 50 mls @ 150 mls/hr IV NOW ONE Stop: 08/08/24 17:01 Last Infusion: 08/08/24 17:28 Dose: Infused Documented By: ANTONIO Co-signed By: TARA Admin: 08/08/24 17:12 Dose: 150 mls/hr Documented By: ANTONIO Co-signed By: TARA Piperacillin Sod/Tazobactam (Sod 4.5 gm/ Sodium Chloride) 100 mls @ 200 mls/hr IV NOW ONE Stop: 08/08/24 17:35 Last Infusion: 08/08/24 18:45 Dose: Infused Documented By: Admin: 08/08/24 18:05 Dose: 200 mls/hr Documented By: ELDER Thiamine HCl 200 mg/ Sodium (Chloride) 102 mls @ 408 mls/hr IV NOW ONE Stop: 08/08/24 18:07 Last Infusion: 08/08/24 19:20 Dose: Infused Documented By: Admin: 08/08/24 18:50 Dose: 408 mls/hr Documented By: ANTONIO Sodium Chloride (Normal Saline 0.9%) 1,000 mls @ 1,000 mls/hr IV BOLUS ONE Stop: 08/08/24 19:33 Last Infusion: 08/08/24 20:10 Dose: Infused Documented By: HNNatalya Infusion: 08/08/24 20:08 Dose: 0 mls/hr Documented By: Admin: 08/08/24 18:52 Dose: 1,000 mls/hr Documented By: SPF Ondansetron HCl (Ondansetron 4 Mg/2 Ml Inj) 4 mg IV NOW ONE Stop: 08/08/24 16:05 Last Admin: 08/08/24 16:42 Dose: 4 mg Documented By: ELDER Pantoprazole Sodium (Pantoprazole 40 Mg Vial) 80 mg IV NOW ONE Stop: 08/08/24 16:15 Last Admin: 08/08/24 16:41 Dose: 80 mg Documented By: ES Phenobarbital (Phenobarbital 65 Mg/Ml Vial) 260 mg IV NOW ONE Stop: 08/08/24 19:52 Last Admin: 08/08/24 20:08 Dose: 260 mg Documented By: RY Potassium Chloride (Potassium Chloride 20 Meq Tab) 40 meq PO NOW ONE Stop: 08/08/24 16:45 Last Admin: 08/08/24 17:13 Dose: 40 meq Documented By: SPF Vital Signs Vital signs: Vital Signs - 8 hr 08/08/24 23:30 08/08/24 23:30 08/09/24 00:00 Pulse Rate 86 85 Blood Pressure 96/62 Pulse Oximetry 91 Oxygen Delivery Method 08/09/24 00:00 08/09/24 00:30 08/09/24 00:30 Pulse Rate 84 Blood Pressure 88/59 L 92/62 Pulse Oximetry 91 Oxygen Delivery Method Room Air <Smitha Mccauley MD - Last Filed: 08/08/24 23:13> Orders Ordered: Discontinued Medications Folic Acid (Folic Acid 1 Mg Tablet) 1 mg PO NOW ONE Stop: 08/08/24 18:07 Last Admin: 08/08/24 18:50 Dose: 1 mg Documented By: ANTONIO Sodium Chloride (Normal Saline 0.9%) 1,000 mls @ 1,000 mls/hr IV BOLUS ONE Stop: 08/08/24 17:03 Last Infusion: 08/08/24 18:05 Dose: Infused Documented By: Admin: 08/08/24 16:42 Dose: 1,000 mls/hr Documented By: ELDER Calcium Gluconate 4.65 meq/ (Sodium Chloride) 60 mls @ 180 mls/hr IV NOW ONE Stop: 08/08/24 17:01 Last Infusion: 08/08/24 18:05 Dose: Infused Documented By: Admin: 08/08/24 17:28 Dose: 180 mls/hr Documented By: ANTONIO Magnesium Sulfate (Magnesium Sulfate) 2 gm in 50 mls @ 150 mls/hr IV NOW ONE Stop: 08/08/24 17:01 Last Infusion: 08/08/24 17:28 Dose: Infused Documented By: ANTONIO Co-signed By: TARA Admin: 08/08/24 17:12 Dose: 150 mls/hr Documented By: ANTONIO Co-signed By: TARA Piperacillin Sod/Tazobactam (Sod 4.5 gm/ Sodium Chloride) 100 mls @ 200 mls/hr IV NOW ONE Stop: 08/08/24 17:35 Last Infusion: 08/08/24 18:45 Dose: Infused Documented By: Admin: 08/08/24 18:05 Dose: 200 mls/hr Documented By: ELDER Thiamine HCl 200 mg/ Sodium (Chloride) 102 mls @ 408 mls/hr IV NOW ONE Stop: 08/08/24 18:07 Last Infusion: 08/08/24 19:20 Dose: Infused Documented By: Admin: 08/08/24 18:50 Dose: 408 mls/hr Documented By: ANTONIO Sodium Chloride (Normal Saline 0.9%) 1,000 mls @ 1,000 mls/hr IV BOLUS ONE Stop: 08/08/24 19:33 Last Infusion: 08/08/24 20:10 Dose: Infused Documented By: Infusion: 08/08/24 20:08 Dose: 0 mls/hr Documented By: Admin: 08/08/24 18:52 Dose: 1,000 mls/hr Documented By: ANTONIO Ondansetron HCl (Ondansetron 4 Mg/2 Ml Inj) 4 mg IV NOW ONE Stop: 08/08/24 16:05 Last Admin: 08/08/24 16:42 Dose: 4 mg Documented By: ES Pantoprazole Sodium (Pantoprazole 40 Mg Vial) 80 mg IV NOW ONE Stop: 08/08/24 16:15 Last Admin: 08/08/24 16:41 Dose: 80 mg Documented By: ES Phenobarbital (Phenobarbital 65 Mg/Ml Vial) 260 mg IV NOW ONE Stop: 08/08/24 19:52 Last Admin: 08/08/24 20:08 Dose: 260 mg Documented By: HNG Potassium Chloride (Potassium Chloride 20 Meq Tab) 40 meq PO NOW ONE Stop: 08/08/24 16:45 Last Admin: 08/08/24 17:13 Dose: 40 meq Documented By: ANTONIO Vital Signs Vital signs: Vital Signs - 8 hr 08/08/24 23:30 08/08/24 23:30 08/09/24 00:00 Pulse Rate 86 85 Blood Pressure 96/62 Pulse Oximetry 91 Oxygen Delivery Method 08/09/24 00:00 08/09/24 00:30 08/09/24 00:30 Pulse Rate 84 Blood Pressure 88/59 L 92/62 Pulse Oximetry 91 Oxygen Delivery Method Room Air MDM - Nausea/Vomiting/Diarrhea <Smitha Cabrera, - Last Filed: 08/09/24 07:12> Lab Data 08/08/24 16:15 08/08/24 16:15 Labs: Lab Results 08/08/24 08/08/24 08/08/24 Range/Units 16:15 18:05 20:05 WBC 6.1 (4.5-11.0) X10^3/uL RBC 3.03 L (4.5-5.9) X10^6/uL Hgb 11.4 L (13.5-17.5) g/dL Hct 33.3 L (41-53) % MCV 109.6 H (80-100) fL MCH 37.5 H (26-34) PG MCHC 34.2 (30-36) % RDW 14.0 (11.6-14.8) % Plt Count 152 (150-400) X10^3/uL Neut % (Auto) 74.9 (50-75) % Lymph % (Auto) 17.1 L (25-40) % [place] % (Auto) 7.1 (3-14) % Eos % (Auto) 0.2 L (2-4) % Baso % (Auto) 0.7 (0-2) % Neut # (Auto) 4500 (6671-2685) /uL Lymph # (Auto) 1000 L (1182-9411) /uL [place] # (Auto) 400 (0-900) /uL Eos # (Auto) 0 (0-450) /uL Baso # (Auto) 0 (0-100) /uL Sodium 133 L (137-145) mmol/L Potassium 3.0 L (3.4-5.1) mmol/L Chloride 91 L (98-107) mmol/L Carbon Dioxide 30 (22-32) mmol/L BUN 8 L (9-20) mg/dL Creatinine 0.68 (0.66-1.25) mg/dL Estimated GFR > 60 (>60) mL/min BUN/Creatinine Ratio 11.8 (6-22) Glucose 113 H (80-110) mg/dL Lactate 6.6 H* 5.1 H* 3.1 H (0.7-2.1) mmol/L Calcium 7.8 L (8.4-10.2) mg/dL Magnesium 1.1 L (1.6-2.3) mg/dL Total Bilirubin 1.5 H (0.2-1.3) mg/dL AST 75 H (17-59) IU/L ALT 19 (<50) IU/L Alkaline Phosphatase 159 H (38-126) U/L Total Protein 6.2 L (6.3-8.2) g/dL Albumin 3.2 L (3.5-5.0) g/dL Globulin 3.0 (1.7-4.1) g/dL Albumin/Globulin Ratio 1.1 (1.0-2.8) Lipase 79 (23-300) U/L Procalcitonin 0.154 (<0.5) ng/mL Ethyl Alcohol 44 H ( - 10) mg/dL 08/08/24 Range/Units 22:15 WBC (4.5-11.0) X10^3/uL RBC (4.5-5.9) X10^6/uL Hgb (13.5-17.5) g/dL Hct (41-53) % MCV (80-100) fL MCH (26-34) PG MCHC (30-36) % RDW (11.6-14.8) % Plt Count (150-400) X10^3/uL Neut % (Auto) (50-75) % Lymph % (Auto) (25-40) % [place] % (Auto) (3-14) % Eos % (Auto) (2-4) % Baso % (Auto) (0-2) % Neut # (Auto) (2793-5917) /uL Lymph # (Auto) (0186-1250) /uL [place] # (Auto) (0-900) /uL Eos # (Auto) (0-450) /uL Baso # (Auto) (0-100) /uL Sodium (137-145) mmol/L Potassium (3.4-5.1) mmol/L Chloride (98-107) mmol/L Carbon Dioxide (22-32) mmol/L BUN (9-20) mg/dL Creatinine (0.66-1.25) mg/dL Estimated GFR (>60) mL/min BUN/Creatinine Ratio (6-22) Glucose (80-110) mg/dL Lactate 1.5 (0.7-2.1) mmol/L Calcium (8.4-10.2) mg/dL Magnesium (1.6-2.3) mg/dL Total Bilirubin (0.2-1.3) mg/dL AST (17-59) IU/L ALT (<50) IU/L Alkaline Phosphatase (38-126) U/L Total Protein (6.3-8.2) g/dL Albumin (3.5-5.0) g/dL Globulin (1.7-4.1) g/dL Albumin/Globulin Ratio (1.0-2.8) Lipase (23-300) U/L Procalcitonin (<0.5) ng/mL Ethyl Alcohol ( - 10) mg/dL ECG Data Attestation: I personally reviewed and interpreted this ECG as follows: Interpretation: Sinus rhythm rate of 92 WI 146 QRS 82 QTC of 477. Nonspecific change. MDM Narrative Medical decision making narrative: 63-year-old male history of alcohol dependence who presents with complaint of nausea vomiting and diarrhea was seen at [place] had a CT which showed changes consistent with colitis and a possible mass versus area of fluid in the duodenum is recommended to follow up. At time he had a normal white count at 6.3 hemoglobin of 13.2 and platelets of 130 on 07/28/2024 creatinine was normal at 0.6 with a BUN of 4 sodium of 138 potassium of 3.1. Bilirubin was elevated at 1.3 with a Mag 1.1 AST was 60, ALT was 12 and alk-phos was 156 with a lipase of 30. Patient's ETOH was 86 at that time. Patient received a L of fluids as well as magnesium he was recommended to follow up with primary care and given contact to set up colonoscopy/endoscopy. Patient arrives today tachycardic although drops back down into the 90s for his heart rate. Been hypotensive in the 90s and 100 systolic range. Afebrile 99% on room air without any distress on exam. He is nontender on examination. Plan for labs, CT imaging, urinalysis, gi panel if patient can give sample. Labs white count of 6.1 hemoglobin 11.4 was 13 0.2 at [place] on the , macrocytosis platelets are appropriate. Patient was multiple electrolyte abnormality sodium of 133 potassium is low again at 3 was 3.1 at his last day chloride 91 CO2 of 30 BUN 8 with a creatinine of 0.68, glucose is 113 lactate elevated at 6.6 with a calcium of 7.8 Mag is 1.1, bilirubin is elevated at 1.5 with a AST of 75 ALT 19 alk-phos of 159 and a lipase of [address] imaging fatty liver infiltration 4 cm cystic lesion involving duodenum differential includes contained perforation: Is also distinctly abnormal with moderate wall thickening correlate with potential infectious and inflammatory causes of colitis. urine EKG sinus rhythm rate of 92 WI 146 QRS 82 QTC of 477. Patient received Protonix, Zofran and a L of normal saline. Patient was given potassium, magnesium and calcium gluconate. Patient received Zosyn. Spoke with Dr. Fernandez on-call for General surgery about mass versus perforation possibly from ulcer patient does drink alcohol. He was going to review the images and call back. Reviewed labs, no findings from today evaluation and CT imaging. Have the prior report from [facility] but not able to obtain images for comparison is are EMR for imaging is are not compatible. 1756: Called back after reviewing images he feels he has a pancreatic pseudocyst recommends transfer for endoscopic ultrasound for drainage and treatment. Spoke with Dr. Borjas, gastroenterology at [facility] he is happy to see the patient. Discussed findings from today labs and imaging suspected pancreatic pseudocyst per our general surgeon after reviewing the images. He was agreeable to transfer to take to OR likely tomorrow we would go ahead and cover with a dose of antibiotics while awaiting evaluation. Page out to the hospitalist at [facility]. Patient signed out to Dr. Mccauley while awaiting potential placement/transfer. <Smitha Mccauley MD - Last Filed: 08/08/24 23:13> Lab Data Labs: Lab Results 08/08/24 08/08/24 08/08/24 Range/Units 16:15 18:05 20:05 WBC 6.1 (4.5-11.0) X10^3/uL RBC 3.03 L (4.5-5.9) X10^6/uL Hgb 11.4 L (13.5-17.5) g/dL Hct 33.3 L (41-53) % MCV 109.6 H (80-100) fL MCH 37.5 H (26-34) PG MCHC 34.2 (30-36) % RDW 14.0 (11.6-14.8) % Plt Count 152 (150-400) X10^3/uL Neut % (Auto) 74.9 (50-75) % Lymph % (Auto) 17.1 L (25-40) % [place] % (Auto) 7.1 (3-14) % Eos % (Auto) 0.2 L (2-4) % Baso % (Auto) 0.7 (0-2) % Neut # (Auto) 4500 (1436-7888) /uL Lymph # (Auto) 1000 L (8907-0550) /uL [place] # (Auto) 400 (0-900) /uL Eos # (Auto) 0 (0-450) /uL Baso # (Auto) 0 (0-100) /uL Sodium 133 L (137-145) mmol/L Potassium 3.0 L (3.4-5.1) mmol/L Chloride 91 L (98-107) mmol/L Carbon Dioxide 30 (22-32) mmol/L BUN 8 L (9-20) mg/dL Creatinine 0.68 (0.66-1.25) mg/dL Estimated GFR > 60 (>60) mL/min BUN/Creatinine Ratio 11.8 (6-22) Glucose 113 H (80-110) mg/dL Lactate 6.6 H* 5.1 H* 3.1 H (0.7-2.1) mmol/L Calcium 7.8 L (8.4-10.2) mg/dL Magnesium 1.1 L (1.6-2.3) mg/dL Total Bilirubin 1.5 H (0.2-1.3) mg/dL AST 75 H (17-59) IU/L ALT 19 (<50) IU/L Alkaline Phosphatase 159 H (38-126) U/L Total Protein 6.2 L (6.3-8.2) g/dL Albumin 3.2 L (3.5-5.0) g/dL Globulin 3.0 (1.7-4.1) g/dL Albumin/Globulin Ratio 1.1 (1.0-2.8) Lipase 79 (23-300) U/L Procalcitonin 0.154 (<0.5) ng/mL Ethyl Alcohol 44 H ( - 10) mg/dL 08/08/24 Range/Units 22:15 WBC (4.5-11.0) X10^3/uL RBC (4.5-5.9) X10^6/uL Hgb (13.5-17.5) g/dL Hct (41-53) % MCV (80-100) fL MCH (26-34) PG MCHC (30-36) % RDW (11.6-14.8) % Plt Count (150-400) X10^3/uL Neut % (Auto) (50-75) % Lymph % (Auto) (25-40) % [place] % (Auto) (3-14) % Eos % (Auto) (2-4) % Baso % (Auto) (0-2) % Neut # (Auto) (3991-1238) /uL Lymph # (Auto) (0757-2454) /uL [place] # (Auto) (0-900) /uL Eos # (Auto) (0-450) /uL Baso # (Auto) (0-100) /uL Sodium (137-145) mmol/L Potassium (3.4-5.1) mmol/L Chloride (98-107) mmol/L Carbon Dioxide (22-32) mmol/L BUN (9-20) mg/dL Creatinine (0.66-1.25) mg/dL Estimated GFR (>60) mL/min BUN/Creatinine Ratio (6-22) Glucose (80-110) mg/dL Lactate 1.5 (0.7-2.1) mmol/L Calcium (8.4-10.2) mg/dL Magnesium (1.6-2.3) mg/dL Total Bilirubin (0.2-1.3) mg/dL AST (17-59) IU/L ALT (<50) IU/L Alkaline Phosphatase (38-126) U/L Total Protein (6.3-8.2) g/dL Albumin (3.5-5.0) g/dL Globulin (1.7-4.1) g/dL Albumin/Globulin Ratio (1.0-2.8) Lipase (23-300) U/L Procalcitonin (<0.5) ng/mL Ethyl Alcohol ( - 10) mg/dL MDM Narrative Medical decision making narrative: 63-year-old male history of alcohol dependence who presents with complaint of nausea vomiting and diarrhea was seen at [place] had a CT which showed changes consistent with colitis and a possible mass versus area of fluid in the duodenum is recommended to follow up. At time he had a normal white count at 6.3 hemoglobin of 13.2 and platelets of 130 on 07/28/2024 creatinine was normal at 0.6 with a BUN of 4 sodium of 138 potassium of 3.1. Bilirubin was elevated at 1.3 with a Mag 1.1 AST was 60, ALT was 12 and alk-phos was 156 with a lipase of 30. Patient's ETOH was 86 at that time. Patient received a L of fluids as well as magnesium he was recommended to follow up with primary care and given contact to set up colonoscopy/endoscopy. Patient arrives today tachycardic although drops back down into the 90s for his heart rate. Been hypotensive in the 90s and 100 systolic range. Afebrile 99% on room air without any distress on exam. He is nontender on examination. Plan for labs, CT imaging, urinalysis, gi panel if patient can give sample. Labs white count of 6.1 hemoglobin 11.4 was 13 0.2 at [place] on the , macrocytosis platelets are appropriate. Patient was multiple electrolyte abnormality sodium of 133 potassium is low again at 3 was 3.1 at his last day chloride 91 CO2 of 30 BUN 8 with a creatinine of 0.68, glucose is 113 lactate elevated at 6.6 with a calcium of 7.8 Mag is 1.1, bilirubin is elevated at 1.5 with a AST of 75 ALT 19 alk-phos of 159 and a lipase of [address] imaging fatty liver infiltration 4 cm cystic lesion involving duodenum differential includes contained perforation: Is also distinctly abnormal with moderate wall thickening correlate with potential infectious and inflammatory causes of colitis. urine EKG sinus rhythm rate of 92 WI 146 QRS 82 QTC of 477. Patient received Protonix, Zofran and a L of normal saline. Patient was given potassium, magnesium and calcium gluconate. Patient received Zosyn. Spoke with Dr. Fernandez on-call for General surgery about mass versus perforation possibly from ulcer patient does drink alcohol. He was going to review the images and call back. Reviewed labs, no findings from today evaluation and CT imaging. Have the prior report from [facility] but not able to obtain images for comparison is are EMR for imaging is are not compatible. 1756: Called back after reviewing images he feels he has a pancreatic pseudocyst recommends transfer for endoscopic ultrasound for drainage and treatment. Spoke with Dr. Borjas, gastroenterology at [facility] he is happy to see the patient. Discussed findings from today labs and imaging suspected pancreatic pseudocyst per our general surgeon after reviewing the images. He was agreeable to transfer to take to OR likely tomorrow we would go ahead and cover with a dose of antibiotics while awaiting evaluation. Page out to the hospitalist at [facility]. Patient signed out to Dr. Mccauley while awaiting potential placement/transfer. Dr. Mccauley -care of patient is signed out to me by Dr. Cabrera. Independent review of patient and chart performed by myself. Patient was resting comfortably in bed, hemodynamically stable, lactic acid is downtrending, improved after 2 L of IV fluids. Not actively withdrawing, however phenobarbital ordered to prevent withdrawal throughout the night. Unfortunately [facility] the not have capacity for the patient's required level of care. Discussed case with hospitalist Dr. Núñez at [facility], who accepted the patient for transfer. Discharge Plan Departure Patient Disposition: [facility] Clinical Impression: Nausea vomiting and diarrhea, Hypokalemia, Hypocalcemia, Hypomagnesemia, Alcohol use disorder Prescriptions: No Action acetaminophen 325 mg Tablet 650 mg PO Q6H PRN (Reason: Fever/Mild Pain (1-3)) Qty: 30 0RF aspirin 81 mg Tablet,Delayed Release (Dr/Ec) 81 mg PO DAILY Qty: 30 0RF famotidine [Pepcid AC] 20 mg Tablet 20 mg PO BID Qty: 60 0RF folic acid 1 mg Tablet 1 mg PO DAILY Qty: 25 0RF metoprolol succinate 25 mg Tablet Extended Release 24 Hr 12.5 mg PO DAILY Qty: 15 0RF multivitamin with folic acid [Tab-A-Charlene] 400 mcg Tablet 1 tab PO DAILY Qty: 30 0RF nicotine 21 mg/24 hr Patch 24 Hour 21 mg topical DAILY Qty: 14 0RF thiamine mononitrate (vit B1) 100 mg Tablet 100 mg PO DAILY Qty: 30 0RF sulfamethoxazole-trimethoprim 800-160 mg tablet 1 tab PO Q12H Qty: 14 0RF Referrals: Kari Kaufman FNP-C [Primary Care Provider] -
--- NOTE | 2024-08-08 16:04 | DI.CT.S_ITS ---
PROCEDURE: CT ABDOMEN PELVIS W CON INDICATIONS: weeks n/v/diarrhea, colitis/?duodenal mass on CT [place] TECHNIQUE: After the administration of intravenous contrast, axial sections acquired from the lung bases to the pubic symphysis. Coronal and sagittal reformats were performed. For radiation dose reduction, the following was used: automated exposure control, adjustment of mA and/or kV according to patient size. COMPARISON: [facility], CT, CT ABDOMEN PELVIS W CON, 05/27/2023, 20:35. FINDINGS: Image quality: Diagnostic. Lower Chest: No significant findings. ABDOMEN: Liver: No solid mass. Diffuse fatty liver infiltration can be seen, with areas fatty sparing. Gallbladder: No radiopaque gallstones or wall thickening. Biliary ducts: No biliary dilation. Pancreas: No ductal dilation. Spleen: Size is within normal limits. Adrenal Glands: No adrenal nodules. Kidneys and Ureters: No hydronephrosis. No solid mass. No complex renal cystic lesion which requires follow up. Stomach and Bowel: There is a 4 cm irregular cystic mass seen involving the duodenum. Surrounding inflammatory change can be seen. This is not seen on the prior valuable CT dated 05/26/2023. The small bowel is otherwise unremarkable. The colon demonstrates at least moderate thickening proximally, with moderate wall thickening throughout the remainder of the colon more distally. Peritoneum: No abnormal intraperitoneal fluid. No free air. Ventral Wall: No significant ventral hernia. Abdominal Nodes: No retroperitoneal or mesenteric adenopathy by size criteria. Vessels: Aorta and inferior vena cava are normal in size. Atherosclerotic calcification is noted. PELVIS: Pelvic Organs: Unremarkable. Bladder: No bladder wall thickening, accounting for underdistention. Pelvic Nodes: No enlarged lymph nodes. Miscellaneous: Bilateral fat containing inguinal hernias are seen, right worse than left. Bones: No aggressive osseous abnormality. Age-appropriate bony degenerative changes are seen. IMPRESSION: 4 cm cystic lesion seen involving the duodenum. Differential diagnosis includes a contained perforation. When clinically appropriate, please consider follow-up upper endoscopy. The colon is also distinctly abnormal, with moderate wall thickening proximally. Please correlate with potential infectious and inflammatory causes of colitis. Additional findings: Fatty liver infiltration, with areas of fatty sparing Dictated by: Charbel Clark M.D. on 08/08/2024 at 16:22 Approved by: Charbel Clark M.D. on 08/08/2024 at 16:27
[2024-08-08 16:23] LABS: Add Manual Diff / Slide Review NO; Basophils Absolute Auto 0 /uL (0-100); Basophils Percent Auto 0.7 % (0-2); Eosinophils Absolute Auto 0 /uL (0-450); Eosinophils Percent Auto 0.2 % (2-4); Hematocrit 33.3 % (41-53); Hemoglobin 11.4 g/dL (13.5-17.5); Lymphocytes Absolute Auto 1000 /uL (1100-4500); Lymphocytes Percent Auto 17.1 % (25-40); Mean Corpuscular HGB Conc 34.2 % (30-36); Mean Corpuscular Hemoglobin 37.5 PG (26-34); Mean Corpuscular Volume 109.6 fL (80-100); Monocytes Absolute Auto 400 /uL (0-900); Monocytes Percent Auto 7.1 % (3-14); Neutrophils Absolute Auto 4500 /uL (1500-7000); Neutrophils Percent Auto 74.9 % (50-75); Platelet Count 152 X10^3/uL (150-400); Red Blood Cell Count 3.03 X10^6/uL (4.5-5.9); White Blood Cell Count 6.1 X10^3/uL (4.5-11.0)
[2024-08-08 16:35] LABS: Alanine Aminotransferase 19 IU/L (<50); Albumin 3.2 g/dL (3.5-5.0); Albumin Globulin Ratio 1.1 (1.0-2.8); Alkaline Phosphatase 159 U/L (38-126); Aspartate Aminotransferase 75 IU/L (17-59); BUN Creatinine Ratio 11.8 (6-22); Bilirubin Total 1.5 mg/dL (0.2-1.3); Blood Urea Nitrogen 8 mg/dL (9-20); Calcium 7.8 mg/dL (8.4-10.2); Carbon Dioxide 30 mmol/L (22-32); Chloride 91 mmol/L (98-107); Estimated Glomerular Filt Rate > 60 mL/min (>60); Glucose 113 mg/dL (80-110); HEMOLYSIS < 15 (0-50); Lipase 79 U/L (23-300); Magnesium 1.1 mg/dL (1.6-2.3); Sodium 133 mmol/L (137-145); Total Protein 6.2 g/dL (6.3-8.2)
[2024-08-08 16:36] LABS: Ethanol (ETOH) 44 mg/dL
[2024-08-08 16:38] LABS: Lactate (Lactic Acid) 6.6 mmol/L (0.7-2.1)
[2024-08-08] MEDS: PANTOPRAZOLE 40 MG VIAL 80 MG IV (16:41)
[2024-08-08] MEDS: SODIUM CHLORIDE 0.9% 1,000 ML 1000 ML IV ×2 (16:42→18:52)
[2024-08-08] MEDS: ONDANSETRON 4 MG/2 ML INJ IV (16:42)
[2024-08-08 16:52] LABS: Procalcitonin 0.154 ng/mL (<0.5)
--- NOTE | 2024-08-08 16:58 | EKG_ITS ---
[place] [id number] [address] [place] [address] Test Date: 2024-08-08 Pat Name: Ridge Payan Department: [facility] Room: Gender: Male Aircraft Body Repairer: NILTON : 1960 Requested By: Order Number: [id number] Reading MD: Haile Richard MD Measurements Intervals [place] Rate: 92 P: 35 MS: 146 QRS: -2 QRSD: 82 T: 13 QT: 386 QTc: 477 Interpretive Statements Normal sinus rhythm Low voltage QRS Nonspecific T wave abnormality Electronically Signed On 08-09-2024 10:05:25 PST by Haile Richard MD
[2024-08-08] MEDS: MAGNESIUM SULFATE 2 GM/50 ML PIGGYBACK IV (17:12)
[2024-08-08] MEDS: POTASSIUM CHLORIDE 20 MEQ TAB 40 MEQ PO (17:13)
[2024-08-08] MEDS: CALCIUM GLUCONATE 4.65 MEQ in SODIUM CHLORIDE 0.9% 50 ML 180 MEQ IV (17:28)
[2024-08-08 17:54] LABS: Reflexed Lactate in 2 Hours Y
[2024-08-08] MEDS: PIPERACILLIN/TAZO 4.5 GM in SODIUM CHLORIDE 0.9% 100 ML IV (18:05)
[2024-08-08 18:26] LABS: Lactate 2HR (Lactic Acid Rflx) 5.1 mmol/L (0.7-2.1)
--- NOTE | 2024-08-08 18:27 | CM.DANOTE ---
ED AUTOMATIC DRILL OPERATOR Assessment Note: ED AUTOMATIC DRILL OPERATOR consulted due to pt questions about rehab and possible referral/admit. Pt is a 63yo male, resident of [place], presented to the ED for nausea/vomiting/diarrhea, hypocalemia, hypomagnesemia. Pt lives in a modular home with 2 female roommates. Pt's Primary Care Provider is [facility] and insurance is Medicare and Medicaid [employer]. Reviewed chart and team rounds for pt's medical status and initial discharge needs. ED AUTOMATIC DRILL OPERATOR met w/patient at bedside; introduced self and role. Present in the room is pt's son, Sunil. Patient was found in bed, alert and oriented, cooperative with assessment. Pt confirmed living situation and being independent at baseline. Per EMR review, pt has a hx of SNF at [facility]. Pt and son confirm that home health was declined post-discharge from SNF. No other community resources established at this time. Pt states an interest for ETOH detox and rehab, I really want to quit this time. Pt and son state they are aware of [facility] [place] but have never been able to go there due to bed availability. ED AUTOMATIC DRILL OPERATOR provided printed Substance Use Resources (OP and Detox) to patient and son. Plan: Pending plan of care, possible surgery/admit vs. transfer to higher level of care. ED staff will follow closely for coordination of discharge plans. [facility] Discharge Planning/Care Management CM Discharge Assessment Start: 08/08/24 18:25 Freq: Status: Active Protocol: Document 08/08/24 18:25 MW (Rec: 08/08/24 18:27 MW [id number]) Discharge Planning Assessment Assigned Ventilating Equipment Installer RICHARD Fontana DPOA/Assigned Designee Name Chao Barber Contact Information [phone] Advance Directives? No Advance Directives on File No History Provided By Patient,Family Member,Medical Record Has Patient been admitted in last 30 No days? Prior Living Arrangements Mobile home Household Members other Comment 2 female roommates Type of transporation used prior to Public Transportation admit Independent with ADL's Yes Is patient alert and oriented? Yes Caregiver for Another No Barriers to Discharge No Discharge Plan Home Transportation Arrangement Family or friends Referrals Initiated Other Additional Comment Pending plan of care -- pt expressed interest in residential rehab for ETOH if medically cleared and SNF not necessary. Review Status In Process Please Provide Date Initial DC 12/01/24 Assessment Was Performed Next Review Type Continued Stay Review
[2024-08-08] MEDS: THIAMINE 200 MG in SODIUM CHLORIDE 0.9% 100 ML 408 MG IV (18:50)
[2024-08-08] MEDS: FOLIC ACID 1 MG TABLET PO (18:50)
[2024-08-08] MEDS: PHENobarbital 65 MG/ML VIAL 260 MG IV (20:08)
[2024-08-08 20:36] LABS: Lactate (Lactic Acid) 3.1 mmol/L (0.7-2.1)
[2024-08-08 22:04] LABS: Reflexed Lactate in 2 Hours Y
--- NOTE | 2024-08-08 22:14 | PC.NURSE ---
Pt reports no nausea or vomiting or diarrhea, denies any abdominal pain. No vomiting since picking up this patient at 1900, no stool as well
[2024-08-08 22:28] LABS: Lactate 2HR (Lactic Acid Rflx) 1.5 mmol/L (0.7-2.1)
[2024-08-09] VITALS: BP 88/59; PULSE 85
[2024-08-09 00:30] VITALS: BP 92/62; PULSE 84; O2SAT 91
== END 2024-08-09 01:17 | disposition short-term general hospital (02) ==
PROVIDERS: Emergency Medicine; Emergency Provider Emergency Medicine; Family Provider Nurse Practitioner Family; PCP Nurse Practitioner Family
DX: R11.2 Nausea with vomiting, unspecified (principal); R19.7 Diarrhea, unspecified; E87.6 Hypokalemia; E83.51 Hypocalcemia; E83.42 Hypomagnesemia; I95.9 Hypotension, unspecified
CPT/HCPCS: 36415; 74177; 80053; 80320; 83605; 83690; 83735; 84145; 85025; 87040; 93005; 93010; 96365; 96367; 96375; 99284; J0612; J2405; J2470; J2543; J2560; J3475; Q9967

== ENCOUNTER 2024-08-16 19:53 | Emergency (ER) | payer MEDICARE, MEDICAID, SELFPAY ==
[2024-08-16] VITALS (7 sets, daily range): BP systolic 89–105; BP diastolic 55–62; PULSE 72–96; RESP 16; TEMP 37.1; O2SAT 98–100; BMI 20.2
--- NOTE | 2024-08-16 20:21 | DI.RAD.S_ITS ---
PROCEDURE: XR CHEST 1V INDICATIONS: Shortness of breath TECHNIQUE: One view of the chest was acquired. COMPARISON: [facility], , XR CHEST 1V, 10/29/2023, 20:23. [facility], CR, XR CHEST 1V, 06/05/2023, 11:34. FINDINGS: Surgical changes and devices: None. Lungs and pleura: Lungs are clear. No pleural effusions or pneumothorax. Mediastinum: Mediastinal contours appear normal. Heart size is normal. Bones and chest wall: No suspicious bony lesions. Overlying soft tissues appear unremarkable. IMPRESSION: No acute cardiopulmonary abnormality is seen. Dictated by: Lb Craven M.D. on 08/16/2024 at 21:25 Approved by: Lb Craven M.D. on 08/16/2024 at 21:25
[2024-08-16 21:25] LABS: Add Manual Diff / Slide Review NO; Basophils Absolute Auto 0 /uL (0-100); Basophils Percent Auto 0.7 % (0-2); Eosinophils Absolute Auto 100 /uL (0-450); Hematocrit 27.4 % (41-53); Hemoglobin 9.2 g/dL (13.5-17.5); Lymphocytes Absolute Auto 1200 /uL (1100-4500); Lymphocytes Percent Auto 22.6 % (25-40); Mean Corpuscular HGB Conc 33.5 % (30-36); Mean Corpuscular Hemoglobin 36.9 PG (26-34); Mean Corpuscular Volume 110.1 fL (80-100); Monocytes Absolute Auto 600 /uL (0-900); Monocytes Percent Auto 11.8 % (3-14); Neutrophils Absolute Auto 3400 /uL (1500-7000); Neutrophils Percent Auto 63.9 % (50-75); Platelet Count 201 X10^3/uL (150-400); Red Blood Cell Count 2.49 X10^6/uL (4.5-5.9); Red Cell Distribution Width 14.4 % (11.6-14.8); White Blood Cell Count 5.3 X10^3/uL (4.5-11.0)
[2024-08-16 21:27] LABS: INR 1.1 (0.9-1.3); Prothrombin Time 12.3 SECONDS (9.4-12.5)
[2024-08-16 21:31] LABS: Lactate (Lactic Acid) 1.8 mmol/L (0.7-2.1)
[2024-08-16 21:32] LABS: Alanine Aminotransferase 26 IU/L (<50); Albumin 2.8 g/dL (3.5-5.0); Albumin Globulin Ratio 0.9 (1.0-2.8); Alkaline Phosphatase 111 U/L (38-126); Aspartate Aminotransferase 101 IU/L (17-59); BUN Creatinine Ratio 7.7 (6-22); Bilirubin Total 0.5 mg/dL (0.2-1.3); Blood Urea Nitrogen 5 mg/dL (9-20); Calcium 8.4 mg/dL (8.4-10.2); Carbon Dioxide 25 mmol/L (22-32); Chloride 103 mmol/L (98-107); Estimated Glomerular Filt Rate > 60 mL/min (>60); Globulin 3.1 g/dL (1.7-4.1); Glucose 127 mg/dL (80-110); HEMOLYSIS 20 (0-50); Potassium 4.4 mmol/L (3.4-5.1); Sodium 131 mmol/L (137-145); Total Protein 5.9 g/dL (6.3-8.2)
[2024-08-16 21:43] LABS: NT-proBNP (BNP-Adult 18+) 632 pg/mL (<125); Troponin I < 0.012 ng/mL (0.01-0.034)
[2024-08-16 21:53] LABS: Macrocytosis 1+
[2024-08-17] VITALS (11 sets, daily range): BP systolic 91–107; BP diastolic 57–67; PULSE 66–77; RESP 18; O2SAT 97–100
--- NOTE | 2024-08-17 00:51 | ED_ITS ---
HPI - Extremity Problem General Chief complaint: Extremity Problem,Nontraumatic Stated complaint: Swelling in Extremities Time Seen by Provider: 08/16/24 22:10 Source: patient and family Mode of arrival: Wheelchair History of Present Illness HPI Narrative: 63-year-old male with history of alcohol abuse here for complaint of bilateral lower extremity swelling. Symptoms now for many weeks, recent increased last few days. He denies known history of cirrhosis, liver failure, kidney failure, congestive heart failure. He has not sure if he has low protein in his blood, not sure if he has protein in his urine. He has not discontinued any chronic medications, denies any new prescription or [id number]-[id number] medications. He denies fevers or chills, shortness of breath, headache, neck pain, chest pain, abdominopelvic pain. He denies black or red stools. He denies nausea or vomiting. Related Data Previous Rx's Medication Instructions Recorded acetaminophen 325 mg tablet 650 mg (2 x 325 mg) PO Q6H PRN 06/10/23 Fever/Mild Pain (1-3) #30 tabs aspirin 81 mg tablet,delayed 81 mg PO DAILY #30 tabs 06/10/23 release famotidine 20 mg tablet (Pepcid AC) 20 mg PO BID #60 tabs 06/10/23 folic acid 1 mg tablet 1 mg PO DAILY #25 tabs 06/10/23 metoprolol succinate 25 mg 12.5 mg (1/2 x 25 mg) PO DAILY #15 06/10/23 tablet,extended release 24 hr tabs multivitamin with folic acid 400 1 tab PO DAILY #30 tabs 06/10/23 mcg tablet (Tab-A-Charlene) nicotine 21 mg/24 hr daily 21 mg topical DAILY #14 ea 06/10/23 transdermal patch thiamine mononitrate (vit B1) 100 100 mg PO DAILY #30 tabs 06/10/23 mg tablet sulfamethoxazole 800 1 tab PO Q12H #14 tabs 10/30/23 mg-trimethoprim 160 mg tablet furosemide 20 mg tablet (Lasix) 20 mg PO DAILY #14 tabs 08/17/24 Allergies Allergy/AdvReac Type Severity Reaction Status Date / Time No Known Drug Allergies Allergy Verified 08/16/24 20:19 Review of Systems Review of Systems Narrative: see HPI Patient History Medical History Alcohol use disorder Social History household members: other Smoking Status: Current every day smoker alcohol intake: current Smoking Status: Current every day smoker tobacco type: cigarettes alcohol intake frequency: 0-2 drinks per day Exam Narrative Exam Narrative: GENERAL: Well-developed patient, in mild distress. HEAD: Atraumatic. Normocephalic. EYES: Pupils equal round and reactive. Extraocular motions intact. No scleral icterus. No injection or drainage. ENT: Nose without bleeding, purulent drainage. Throat without erythema, tonsillar hypertrophy or exudate. Airway patent. NECK: Trachea midline. Non tender CARDIOVASCULAR: Regular rate and rhythm without murmurs, gallops, or rubs. RESPIRATORY: Clear to auscultation. Breath sounds equal bilaterally. No wheezes, rales, or rhonchi. GASTROINTESTINAL: Abdomen soft, non-tender, nondistended. EXTREMITIES: Bilateral lower extremity edema above ankles bilateral, good cap refill both toes BACK: Nontender without deformity or crepitance. No flank tenderness. NEURO: AOx3. Motor functions grossly nonfocal SKIN: No rash or erythema of visible areas Initial Vital Signs Initial Vital Signs: Vital Signs Temperature 98.7 F 08/16/24 20:15 Pulse Rate 96 H 08/16/24 20:15 Respiratory Rate 16 08/16/24 20:15 Blood Pressure 89/55 L 08/16/24 20:15 Pulse Oximetry 99 08/16/24 20:15 Oxygen Delivery Method Room Air 08/16/24 20:15 Course Orders Ordered: Discontinued Medications Furosemide (Furosemide 40 Mg/4 Ml Vial) 40 mg IV NOW ONE Stop: 08/17/24 01:48 Last Admin: 08/17/24 01:58 Dose: 40 mg Documented By: ABIMAEL Vital Signs Vital signs: Vital Signs - 8 hr 08/16/24 22:01 08/16/24 22:05 08/16/24 22:05 Pulse Rate 88 90 Respiratory Rate Blood Pressure 89/62 L Pulse Oximetry 100 98 Oxygen Delivery Method 08/16/24 22:30 08/16/24 23:00 08/16/24 23:30 Pulse Rate 77 72 75 Respiratory Rate Blood Pressure Pulse Oximetry 99 99 99 Oxygen Delivery Method 08/17/24 00:00 08/17/24 00:30 08/17/24 01:00 Pulse Rate 69 66 69 Respiratory Rate Blood Pressure Pulse Oximetry 99 100 99 Oxygen Delivery Method 08/17/24 01:30 08/17/24 02:00 08/17/24 02:07 Pulse Rate 68 72 75 Respiratory Rate 18 Blood Pressure 107/57 L Pulse Oximetry 99 98 99 Oxygen Delivery Method 08/17/24 02:07 08/17/24 02:30 08/17/24 02:30 Pulse Rate 77 Respiratory Rate Blood Pressure 107/57 L 100/61 Pulse Oximetry 97 Oxygen Delivery Method 08/17/24 03:00 08/17/24 03:30 08/17/24 03:30 Pulse Rate 75 69 Respiratory Rate Blood Pressure 91/66 Pulse Oximetry 97 98 Oxygen Delivery Method 08/17/24 04:00 08/17/24 04:00 08/17/24 04:30 Pulse Rate 66 77 Respiratory Rate Blood Pressure 96/60 Pulse Oximetry 97 97 Oxygen Delivery Method Room Air 08/17/24 04:30 Pulse Rate Respiratory Rate Blood Pressure 97/67 Pulse Oximetry Oxygen Delivery Method MDM - Extremity (Nontraumatic) Lab Data Attestation: I reviewed the patient's lab results. 08/16/24 21:07 08/16/24 21:07 Labs: Lab Results 08/16/24 Range/Units 21:07 WBC 5.3 (4.5-11.0) X10^3/uL RBC 2.49 L (4.5-5.9) X10^6/uL Hgb 9.2 L (13.5-17.5) g/dL Hct 27.4 L (41-53) % MCV 110.1 H (80-100) fL MCH 36.9 H (26-34) PG MCHC 33.5 (30-36) % RDW 14.4 (11.6-14.8) % Plt Count 201 (150-400) X10^3/uL Neut % (Auto) 63.9 (50-75) % Lymph % (Auto) 22.6 L (25-40) % [place] % (Auto) 11.8 (3-14) % Eos % (Auto) 1.0 L (2-4) % Baso % (Auto) 0.7 (0-2) % Neut # (Auto) 3400 (4385-3024) /uL Lymph # (Auto) 1200 (5136-5354) /uL [place] # (Auto) 600 (0-900) /uL Eos # (Auto) 100 (0-450) /uL Baso # (Auto) 0 (0-100) /uL RBC Morphology See below Macrocytosis 1+ H PT 12.3 (9.4-12.5) SECONDS INR 1.1 (0.9-1.3) Sodium 131 L (137-145) mmol/L Potassium 4.4 D (3.4-5.1) mmol/L Chloride 103 (98-107) mmol/L Carbon Dioxide 25 (22-32) mmol/L BUN 5 L (9-20) mg/dL Creatinine 0.65 L (0.66-1.25) mg/dL Estimated GFR > 60 (>60) mL/min BUN/Creatinine Ratio 7.7 (6-22) Glucose 127 H (80-110) mg/dL Lactate 1.8 (0.7-2.1) mmol/L Calcium 8.4 (8.4-10.2) mg/dL Total Bilirubin 0.5 (0.2-1.3) mg/dL AST 101 H (17-59) IU/L ALT 26 (<50) IU/L Alkaline Phosphatase 111 (38-126) U/L Troponin I < 0.012 (0.01-0.034) ng/mL NT-Pro-B Natriuret Pep 632 H (<125) pg/mL Total Protein 5.9 L (6.3-8.2) g/dL Albumin 2.8 L (3.5-5.0) g/dL Globulin 3.1 (1.7-4.1) g/dL Albumin/Globulin Ratio 0.9 L (1.0-2.8) Imaging Data Chest x-ray: Radiologist's Impression: [address] [address] XRay Report Signed Patient: Ridge Payan MR#: [id number] : 1960 Acct:[id number] Age/Sex: 63 / M Date of Service: 08/16/24 Loc: ED Accession Number: [id number] Procedure: XR chest 1V Ordering Provider: Presley Abdullahi MD PROCEDURE: XR CHEST 1V INDICATIONS: Shortness of breath TECHNIQUE: One view of the chest was acquired. COMPARISON: [facility], CR, XR CHEST 1V, 10/29/2023, 20:23. [facility], CR, XR CHEST 1V, 06/05/2023, 11:34. FINDINGS: Surgical changes and devices: None. Lungs and pleura: Lungs are clear. No pleural effusions or pneumothorax. Mediastinum: Mediastinal contours appear normal. Heart size is normal. Bones and chest wall: No suspicious bony lesions. Overlying soft tissues appear unremarkable. IMPRESSION: No acute cardiopulmonary abnormality is seen. Dictated by: Lb Craven M.D. on 08/16/2024 at 21:25 Approved by: Lb Craven M.D. on 08/16/2024 at 21:25 MDM Narrative Medical decision making narrative: 63-year-old male with history of recent suspected GI bleeding, transferred to [facility] for [facility]oscopy, patient aware of definitive diagnosis, IV fluids apparently given during that hospital stay, patient now with bilateral lower extremity edema symptoms for the last couple of weeks. Denies shortness of breath. Denies chest pain. Denies history of failure of the heart liver kidneys. Denies missed doses of medications. Afebrile, sirs screen negative. Bilateral lower extremity edema on examination noted. Labs pending EKG without obvious ischemic changes. Troponin negative. IV Lasix dose, patient had significant diuresis, symptomatically improved. We would like to go home. We will give prescription oral Lasix for the next week or so. Recheck advised early next week with PCP, consider electrolyte rechecked with the time. Patient like to go home. Discharged home per patient request. Return precautions discussed Discharge Plan Departure Patient Disposition: Home Clinical Impression: Bilateral edema of lower extremity Activity Restrictions/Additional Instructions: Leg swelling unclear cause, history of alcohol use noted, liver functions not supra abnormal, renal function not super abnormal, recent evaluation [facility] with endoscopy, IV fluids given prior, it is possible you might be mobilizing all the fluid from that stay, versus some other cause. Chest x-ray and lab testing not suspicious for gross fluid overload heart failure at this time, though there could be some component. IV Lasix given, significant urine output, your edema swelling symptoms improved some. Further oral Lasix prescription sent to your pharmacy, to use daily for the next week or 2. Consider recheck of your laboratory studies with your regular doctor in the next week. Follow up with your gastroenterology specialist as planned. Continue your chronic medications as planned. Return earlier to this/nearest emergency department for any change worsening symptoms or any concerns prior Prescriptions: New furosemide [Lasix] 20 mg tablet 20 mg PO DAILY Qty: 14 0RF No Action acetaminophen 325 mg Tablet 650 mg PO Q6H PRN (Reason: Fever/Mild Pain (1-3)) Qty: 30 0RF aspirin 81 mg Tablet,Delayed Release (Dr/Ec) 81 mg PO DAILY Qty: 30 0RF famotidine [Pepcid AC] 20 mg Tablet 20 mg PO BID Qty: 60 0RF folic acid 1 mg Tablet 1 mg PO DAILY Qty: 25 0RF metoprolol succinate 25 mg Tablet Extended Release 24 Hr 12.5 mg PO DAILY Qty: 15 0RF multivitamin with folic acid [Tab-A-Charlene] 400 mcg Tablet 1 tab PO DAILY Qty: 30 0RF nicotine 21 mg/24 hr Patch 24 Hour 21 mg topical DAILY Qty: 14 0RF thiamine mononitrate (vit B1) 100 mg Tablet 100 mg PO DAILY Qty: 30 0RF sulfamethoxazole-trimethoprim 800-160 mg tablet 1 tab PO Q12H Qty: 14 0RF Referrals: Kari Kaufman FNP-C [Primary Care Provider] - Stand Alone Forms: Patient Portal/API/Survey
[2024-08-17] MEDS: FUROSEMIDE 40 MG/4 ML VIAL IV (01:58)
== END 2024-08-17 05:08 | disposition home or self-care (01) ==
PROVIDERS: Emergency Provider Emergency Medicine; Family Provider Nurse Practitioner Family; PCP Nurse Practitioner Family
DX: R60.0 Localized edema (principal); R06.02 Shortness of breath
CPT/HCPCS: 36415; 71045; 80053; 83605; 83880; 84484; 85025; 85610; 96374; 99284; J1940

== ENCOUNTER 2024-11-12 20:46 | Emergency (ER) | payer MEDICAID, SELFPAY ==
[2024-11-12] VITALS (9 sets, daily range): BP systolic 85–90; BP diastolic 55–63; PULSE 87–167; RESP 15–28; TEMP 36.9; O2SAT 97–100; BMI 22.1
--- NOTE | 2024-11-12 21:30 | EKG_ITS ---
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
[2024-11-12 21:49] LABS: Add Manual Diff / Slide Review NO; Basophils Absolute Auto 100 /uL (0-100); Basophils Percent Auto 0.8 % (0-2); Eosinophils Absolute Auto 100 /uL (0-450); Eosinophils Percent Auto 0.5 % (2-4); Hematocrit 35.6 % (41-53); Hemoglobin 12.2 g/dL (13.5-17.5); Lymphocytes Absolute Auto 1700 /uL (1100-4500); Lymphocytes Percent Auto 16.4 % (25-40); Mean Corpuscular HGB Conc 34.4 % (30-36); Mean Corpuscular Hemoglobin 36.2 PG (26-34); Mean Corpuscular Volume 105.4 fL (80-100); Monocytes Absolute Auto 900 /uL (0-900); Monocytes Percent Auto 8.9 % (3-14); Neutrophils Absolute Auto 7700 /uL (1500-7000); Neutrophils Percent Auto 73.4 % (50-75); Platelet Count 160 X10^3/uL (150-400); Red Blood Cell Count 3.38 X10^6/uL (4.5-5.9); Red Cell Distribution Width 14.5 % (11.6-14.8); White Blood Cell Count 10.5 X10^3/uL (4.5-11.0)
[2024-11-12 22:06] LABS: Alanine Aminotransferase 47 IU/L (<50); Albumin 3.3 g/dL (3.5-5.0); Albumin Globulin Ratio 0.9 (1.0-2.8); Alkaline Phosphatase 213 U/L (38-126); Aspartate Aminotransferase 155 IU/L (17-59); Bilirubin Total 2.8 mg/dL (0.2-1.3); Blood Urea Nitrogen 22 mg/dL (9-20); Calcium 7.3 mg/dL (8.4-10.2); Carbon Dioxide 22 mmol/L (22-32); Chloride 84 mmol/L (98-107); Estimated Glomerular Filt Rate 28 mL/min (>60); Globulin 3.5 g/dL (1.7-4.1); Glucose 103 mg/dL (80-110); HEMOLYSIS 30 (0-50); Lipase 195 U/L (23-300); Sodium 126 mmol/L (137-145); Total Protein 6.8 g/dL (6.3-8.2)
[2024-11-12 22:09] LABS: Lactate (Lactic Acid) 4.4 mmol/L (0.7-2.1); Potassium 2.5 mmol/L (3.4-5.1)
--- NOTE | 2024-11-12 22:56 | DI.CT.S_ITS ---
PROCEDURE: CT ABDOMEN PELVIS WO CON INDICATIONS: low BP, inc Lactate, ?source infection TECHNIQUE: Axial sections were acquired from the lung bases to the pubic symphysis. Coronal and sagittal reformats were performed. For radiation dose reduction, the following was used: automated exposure control, adjustment of mA and/or kV according to patient size. COMPARISON: [facility], CT, CT ABDOMEN PELVIS W CON, 08/08/2024, 16:17. FINDINGS: Image quality: Diagnostic. Lower Chest: Heart size is enlarged, no pericardial effusion. 3 vessel coronary artery arthrosclerotic calcifications are seen. Small hiatal hernia. URINARY: Right Kidney: No stones or hydronephrosis. Right Ureter: No hydroureter. Left Kidney: Tiny 1-2 mm nonobstructing stones are are seen in left kidney. No hydronephrosis. Left Ureter: No hydroureter. Bladder: Normal wall thickness. No stones. ABDOMEN: Liver: Severe hepatic steatosis and heterogeneous density of right kidney is seen. Nodular liver contour is also noted. No definite discrete hepatic lesion is noted although evaluation is limited due to lack of IV contrast. Gallbladder: No radiopaque gallstones or wall thickening. Biliary ducts: No biliary dilation. Pancreas: No ductal dilation. Spleen: Size is within normal limits. Adrenal Glands: No adrenal nodules. Stomach and Bowel: Small hiatal hernia. 4.9 x 4.9 cm cystic structure is noted involving medial wall of duodenum likely represent a duodenal diverticulum. Other cystic neoplasm cannot be excluded. This has increased in size compared to 08/08/2024 study. There is no evidence of bowel obstruction. No small bowel wall thickening. Suggestion of diffuse colonic wall thickening concerning for infectious or inflammatory colitis. No discrete drainable abscess collection. Peritoneum: Large amount of ascites fluid is noted in abdomen and pelvis. No gross free air. Ventral Wall: No hernia. Abdominal Nodes: No enlarged retroperitoneal or mesenteric lymph nodes. Vessels: Aorta and inferior vena cava are normal in size. PELVIS: Pelvic Organs: Unremarkable. Pelvic Nodes: Unremarkable. Miscellaneous: No inguinal hernias are seen. Bones: No aggressive appearing bony lesions. No acute vertebral body compression fracture. IMPRESSION: 1. Finding is concerning for cirrhosis with moderate to large amount of ascites fluid. No gross peritoneal free air. Heterogeneous density of liver and severe hepatic steatosis. No definite hepatic lesion. 2. Diffuse colonic wall thickening concerning for infectious or inflammatory colitis. No abscess collection. 3. Interval increase in size of patient's known cystic area involving medial wall of duodenum which may represent duodenal diverticulum versus other cystic neoplasm. GI correlation is recommended. 4. Tiny nonobstructing stone seen in left kidney. No obstructing renal stones or hydronephrosis. Normal appearing urinary bladder. Dictated by: Marcelo Fontana M.D. on 11/12/2024 at 23:30 Approved by: Marcelo Fontana M.D. on 11/12/2024 at 23:41
[2024-11-12] MEDS: SODIUM CHLORIDE 0.9% 1,000 ML 1000 ML IV (23:03)
--- NOTE | 2024-11-12 23:10 | ED.NAVMDI ---
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 He also complains of generalized weakness. He denies cough, shortness of breath. He denies weakness to face arm or leg. He denies numbness to face arm or leg. Known trauma or injury or new activities recalled. No painful urination or frequency of urination. Related Data Previous Rx's Medication Instructions Recorded acetaminophen 325 mg tablet 650 mg (2 x 325 mg) PO Q6H PRN 06/10/23 Fever/Mild Pain (1-3) #30 tabs aspirin 81 mg tablet,delayed 81 mg PO DAILY #30 tabs 06/10/23 release famotidine 20 mg tablet (Pepcid AC) 20 mg PO BID #60 tabs 06/10/23 folic acid 1 mg tablet 1 mg PO DAILY #25 tabs 06/10/23 metoprolol succinate 25 mg 12.5 mg (1/2 x 25 mg) PO DAILY #15 06/10/23 tablet,extended release 24 hr tabs multivitamin with folic acid 400 1 tab PO DAILY #30 tabs 06/10/23 mcg tablet (Tab-A-Charlene) nicotine 21 mg/24 hr daily 21 mg topical DAILY #14 ea 06/10/23 transdermal patch thiamine mononitrate (vit B1) 100 100 mg PO DAILY #30 tabs 06/10/23 mg tablet sulfamethoxazole 800 1 tab PO Q12H #14 tabs 10/30/23 mg-trimethoprim 160 mg tablet furosemide 20 mg tablet (Lasix) 20 mg PO DAILY #14 tabs 08/17/24 Allergies Allergy/AdvReac Type Severity Reaction Status Date / Time No Known Drug Allergies Allergy Verified 08/16/24 20:19 Patient History <Presley Abdullahi MD - Last Filed: 11/13/24 16:01> Medical History Alcohol use disorder Social History household members: other Smoking Status: Current every day smoker alcohol intake: current Smoking Status: Current every day smoker tobacco type: cigarettes alcohol intake frequency: 0-2 drinks per day Exam <Presley Abdullahi MD - Last Filed: 11/13/24 16:01> Narrative Exam Narrative: GENERAL: Well-developed patient, in mild distress. HEAD: Atraumatic. Normocephalic. EYES: Pupils equal round and reactive. Extraocular motions intact. No scleral icterus. No injection or drainage. ENT: Nose without bleeding, purulent drainage. Throat without erythema, tonsillar hypertrophy or exudate. Airway patent. NECK: Trachea midline. Non tender CARDIOVASCULAR: Regular rate and rhythm without murmurs, gallops, or rubs. RESPIRATORY: Clear to auscultation. Breath sounds equal bilaterally. No wheezes, rales, or rhonchi. GASTROINTESTINAL: Abdominal distention, some central tympany more so than in gutters, no tenderness however, no obvious ventral hernia. Normal bowel tones. No bruising or abrasions. EXTREMITIES: No edema or joint tenderness. BACK: Nontender without deformity or crepitance. No flank tenderness. NEURO: AOx3. Motor functions grossly nonfocal SKIN: No rash or erythema of visible areas Initial Vital Signs Initial Vital Signs: Vital Signs Temperature 98.4 F 11/12/24 20:54 Pulse Rate 107 H 11/12/24 20:54 Respiratory Rate 18 11/12/24 20:54 Blood Pressure 85/55 L 11/12/24 20:54 Pulse Oximetry 99 11/12/24 20:54 Oxygen Delivery Method Room Air 11/12/24 20:54 <Smitha Cabrera DO - Last Filed: 11/13/24 12:35> Initial Vital Signs Initial Vital Signs: Vital Signs Temperature 98.4 F 11/12/24 20:54 Pulse Rate 107 H 11/12/24 20:54 Respiratory Rate 18 11/12/24 20:54 Blood Pressure 85/55 L 11/12/24 20:54 Pulse Oximetry 99 11/12/24 20:54 Oxygen Delivery Method Room Air 11/12/24 20:54 Procedures <Presley Abdullahi MD - Last Filed: 11/13/24 16:01> Central Line Placement Right IJ: Time of procedure: 02:03 Patient Placed on Monitor/Pulse Ox: Yes Prep: mask, gown and gloves Central Line Prep: Chlorhexidine scrub and sterile drapes applied Amount of anesthesia used (mL): 8 Ultrasound Used for Placement: Yes Central Line Lumen Inserted: triple Post Procedure: sutured in place, good blood return, all ports aspirated, flushed, capped, sterile dressing applied and line stabilization device Post Procedure X-Ray: tip of catheter in good position Patient Tolerated Procedure: Well Complications: none Additional Comments: Postprocedure chest x-ray shows central line in good position, no pneumothorax. 0430-additional central line procedure, previous central line catheter nearly out, chest x-ray confirmed not visible, old central line catheter removed, new central line catheter placed slightly different area right IJ, same procedure, ports aspirated well, postprocedure chest x-ray showed no pneumothorax and good position catheter tip above right atrium. Norepinephrine infusion resumed with new catheter, which was secured with suture device, also clamp device, also overlying op-site/Tegaderm white dressing. Course <Presley Abdullahi MD - Last Filed: 11/13/24 16:01> Orders Ordered: ED Orders 11/13/24 09:04 EKG-12 Lead Stat Discontinued Medications Sodium Chloride (Normal Saline 0.9%) 1,000 mls @ 1,000 mls/hr IV BOLUS ONE Stop: 11/12/24 22:38 Last Infusion: 11/13/24 01:10 Dose: Infused Documented By: Admin: 11/12/24 23:03 Dose: 1,000 mls/hr Documented By: ABIMAEL Sodium Chloride (Normal Saline 0.9%) 1,000 mls @ 1,000 mls/hr IV BOLUS ONE Stop: 11/12/24 23:10 Last Infusion: 11/13/24 02:38 Dose: Infused Documented By: Admin: 11/13/24 01:10 Dose: 1,000 mls/hr Documented By: ABIMAEL Ceftriaxone Sodium 1,000 mg/ (Sodium Chloride) 100 mls @ 200 mls/hr IV NOW ONE Stop: 11/12/24 22:12 Last Infusion: 11/13/24 00:13 Dose: Infused Documented By: Admin: 11/12/24 23:20 Dose: 200 mls/hr Documented By: ABIMAEL POTASSIUM CHLORIDE IN WATER (Potassium Cl 10 Meq/100 Ml Any) 10 meq in 100 mls @ 100 mls/hr IV Q1H MIRANDA Stop: 11/13/24 00:14 Last Infusion: 11/13/24 02:09 Dose: Infused Documented By: Admin: 11/13/24 01:07 Dose: 100 mls/hr Documented By: Infusion: 11/13/24 01:07 Dose: Infused Documented By: Admin: 11/13/24 00:13 Dose: 100 mls/hr Documented By: ABIMAEL Piperacillin Sod/Tazobactam (Sod 4.5 gm/ Sodium Chloride) 100 mls @ 200 mls/hr IV NOW ONE Stop: 11/12/24 23:34 Last Infusion: 11/13/24 03:00 Dose: Infused Documented By: Admin: 11/13/24 02:29 Dose: 200 mls/hr Documented By: ABIMAEL NOREPINEPHRINE BITARTRATE/D5W (Levophed) 4 mg in 250 mls @ 24.834 mls/hr IV TITRATE MIRANDA; Protocol Last Titration: 11/13/24 10:06 Dose: 0.1 mcg/kg/min, 24.834 mls/hr Documented By: Titration: 11/13/24 08:46 Dose: 0.1 mcg/kg/min, 24.834 mls/hr Documented By: Titration: 11/13/24 04:00 Dose: 0 mcg/kg/min, 0 mls/hr Documented By: Admin: 11/13/24 02:32 Dose: 0.1 mcg/kg/min, 24.834 mls/hr Documented By: ABIMAEL POTASSIUM CHLORIDE IN WATER (Potassium Cl 10 Meq/100 Ml Any) 10 meq in 100 mls @ 100 mls/hr IV Q1H MIRANDA Stop: 11/13/24 04:59 Last Infusion: 11/13/24 06:34 Dose: Infused Documented By: Admin: 11/13/24 05:22 Dose: 100 mls/hr Documented By: Infusion: 11/13/24 04:42 Dose: Infused Documented By: Admin: 11/13/24 03:42 Dose: 100 mls/hr Documented By: RY Calcium Gluconate 4.65 meq/ (Sodium Chloride) 60 mls @ 180 mls/hr IV NOW ONE Stop: 11/13/24 03:15 Last Infusion: 11/13/24 05:48 Dose: Infused Documented By: Admin: 11/13/24 03:42 Dose: 180 mls/hr Documented By: RY Lactated Ringer's (Lactated Ringers) 1,000 mls @ 150 mls/hr IV CONT [facility] Last Admin: 11/13/24 06:22 Dose: 150 mls/hr Documented By: ABIMAEL Piperacillin Sod/Tazobactam (Sod 3.375 gm/ Sodium Chloride) 100 mls @ 25 mls/hr IV Q8H [facility] Last Admin: 11/13/24 08:24 Dose: Not Given Documented By: ANTONIO Thiamine HCl 100 mg/ Sodium (Chloride) 101 mls @ 404 mls/hr IV NOW ONE Stop: 11/13/24 06:32 Last Infusion: 11/13/24 07:23 Dose: Infused Documented By: Admin: 11/13/24 06:50 Dose: 404 mls/hr Documented By: ABIMAEL Piperacillin Sod/Tazobactam (Sod 3.375 gm/ Sodium Chloride) 100 mls @ 25 mls/hr IV Q8H [facility] Last Admin: 11/13/24 09:55 Dose: 25 mls/hr Documented By: ANTONIO Ondansetron HCl (Ondansetron 4 Mg/2 Ml Inj) 4 mg IV NOW PRN PRN Reason: Nausea And Vomiting Ondansetron HCl (Ondansetron 4 Mg Odt) 4 mg PO NOW PRN PRN Reason: Nausea And Vomiting Potassium Chloride (Potassium Chloride 20 Meq/15 Ml Udc) 40 meq PO NOW ONE Stop: 11/13/24 02:57 Last Admin: 11/13/24 03:41 Dose: 40 meq Documented By: RY Vital Signs Vital signs: Vital Signs - 8 hr 11/13/24 07:55 11/13/24 07:55 11/13/24 08:00 Temperature Pulse Rate 87 Respiratory Rate Blood Pressure 99/64 94/60 Pulse Oximetry 95 Oxygen Delivery Method Room Air 11/13/24 08:00 11/13/24 08:05 11/13/24 08:05 Temperature Pulse Rate 84 83 Respiratory Rate 24 24 Blood Pressure 92/59 L Pulse Oximetry 97 97 Oxygen Delivery Method Room Air 11/13/24 08:10 11/13/24 08:10 11/13/24 08:15 Temperature Pulse Rate 83 Respiratory Rate Blood Pressure 93/58 L 90/64 Pulse Oximetry 96 Oxygen Delivery Method 11/13/24 08:15 11/13/24 08:24 11/13/24 08:29 Temperature 98.5 F Pulse Rate 79 Respiratory Rate 22 25 H Blood Pressure Pulse Oximetry 96 94 Oxygen Delivery Method Room Air 11/13/24 08:30 11/13/24 08:30 11/13/24 08:45 Temperature Pulse Rate 81 Respiratory Rate 21 Blood Pressure 88/58 L 83/56 L Pulse Oximetry 95 Oxygen Delivery Method 11/13/24 08:45 11/13/24 08:57 11/13/24 08:57 Temperature Pulse Rate 76 59 L Respiratory Rate 20 20 Blood Pressure 109/70 Pulse Oximetry 95 98 Oxygen Delivery Method Room Air 11/13/24 09:00 11/13/24 09:00 11/13/24 09:05 Temperature Pulse Rate 70 84 Respiratory Rate 20 22 Blood Pressure 112/77 Pulse Oximetry 95 97 Oxygen Delivery Method 11/13/24 09:05 11/13/24 09:10 11/13/24 09:10 Temperature Pulse Rate 80 Respiratory Rate 23 Blood Pressure 115/75 111/68 Pulse Oximetry 96 Oxygen Delivery Method Room Air 11/13/24 09:15 11/13/24 09:15 11/13/24 09:20 Temperature Pulse Rate 80 Respiratory Rate 27 H Blood Pressure 106/60 108/78 Pulse Oximetry 95 Oxygen Delivery Method 11/13/24 09:20 11/13/24 09:25 11/13/24 09:25 Temperature Pulse Rate 78 75 Respiratory Rate 25 H 23 Blood Pressure 109/73 Pulse Oximetry 95 95 Oxygen Delivery Method 11/13/24 09:30 11/13/24 09:30 11/13/24 09:35 Temperature Pulse Rate 81 73 Respiratory Rate 23 20 Blood Pressure 90/68 Pulse Oximetry 95 95 Oxygen Delivery Method Room Air 11/13/24 09:35 11/13/24 09:40 11/13/24 09:40 Temperature Pulse Rate 79 Respiratory Rate 22 Blood Pressure 104/72 92/65 Pulse Oximetry 94 Oxygen Delivery Method 11/13/24 09:45 11/13/24 09:45 11/13/24 09:50 Temperature Pulse Rate 136 H Respiratory Rate 23 Blood Pressure 92/68 99/67 Pulse Oximetry 94 Oxygen Delivery Method 11/13/24 09:50 11/13/24 09:55 11/13/24 09:55 Temperature Pulse Rate 86 90 Respiratory Rate 24 Blood Pressure 94/63 Pulse Oximetry 96 95 Oxygen Delivery Method 11/13/24 10:00 11/13/24 10:00 Temperature Pulse Rate 94 H Respiratory Rate 25 H Blood Pressure 89/60 L Pulse Oximetry 96 Oxygen Delivery Method Room Air <Smitha Cabrera DO - Last Filed: 11/13/24 12:35> Orders Ordered: ED Orders 11/13/24 09:04 EKG-12 Lead Stat Discontinued Medications Sodium Chloride (Normal Saline 0.9%) 1,000 mls @ 1,000 mls/hr IV BOLUS ONE Stop: 11/12/24 22:38 Last Infusion: 11/13/24 01:10 Dose: Infused Documented By: Admin: 11/12/24 23:03 Dose: 1,000 mls/hr Documented By: ABIMAEL Sodium Chloride (Normal Saline 0.9%) 1,000 mls @ 1,000 mls/hr IV BOLUS ONE Stop: 11/12/24 23:10 Last Infusion: 11/13/24 02:38 Dose: Infused Documented By: Admin: 11/13/24 01:10 Dose: 1,000 mls/hr Documented By: ABIMAEL Ceftriaxone Sodium 1,000 mg/ (Sodium Chloride) 100 mls @ 200 mls/hr IV NOW ONE Stop: 11/12/24 22:12 Last Infusion: 11/13/24 00:13 Dose: Infused Documented By: Admin: 11/12/24 23:20 Dose: 200 mls/hr Documented By: ABIMAEL POTASSIUM CHLORIDE IN WATER (Potassium Cl 10 Meq/100 Ml Any) 10 meq in 100 mls @ 100 mls/hr IV Q1H MIRANDA Stop: 11/13/24 00:14 Last Infusion: 11/13/24 02:09 Dose: Infused Documented By: Admin: 11/13/24 01:07 Dose: 100 mls/hr Documented By: Infusion: 11/13/24 01:07 Dose: Infused Documented By: Admin: 11/13/24 00:13 Dose: 100 mls/hr Documented By: ABIMAEL Piperacillin Sod/Tazobactam (Sod 4.5 gm/ Sodium Chloride) 100 mls @ 200 mls/hr IV NOW ONE Stop: 11/12/24 23:34 Last Infusion: 11/13/24 03:00 Dose: Infused Documented By: Admin: 11/13/24 02:29 Dose: 200 mls/hr Documented By: ABIMAEL NOREPINEPHRINE BITARTRATE/D5W (Levophed) 4 mg in 250 mls @ 24.834 mls/hr IV TITRATE MIRANDA; Protocol Last Titration: 11/13/24 10:06 Dose: 0.1 mcg/kg/min, 24.834 mls/hr Documented By: Titration: 11/13/24 08:46 Dose: 0.1 mcg/kg/min, 24.834 mls/hr Documented By: Titration: 11/13/24 04:00 Dose: 0 mcg/kg/min, 0 mls/hr Documented By: Admin: 11/13/24 02:32 Dose: 0.1 mcg/kg/min, 24.834 mls/hr Documented By: ABIMAEL POTASSIUM CHLORIDE IN WATER (Potassium Cl 10 Meq/100 Ml Any) 10 meq in 100 mls @ 100 mls/hr IV Q1H MIRANDA Stop: 11/13/24 04:59 Last Infusion: 11/13/24 06:34 Dose: Infused Documented By: Admin: 11/13/24 05:22 Dose: 100 mls/hr Documented By: Infusion: 11/13/24 04:42 Dose: Infused Documented By: Admin: 11/13/24 03:42 Dose: 100 mls/hr Documented By: RY Calcium Gluconate 4.65 meq/ (Sodium Chloride) 60 mls @ 180 mls/hr IV NOW ONE Stop: 11/13/24 03:15 Last Infusion: 11/13/24 05:48 Dose: Infused Documented By: Admin: 11/13/24 03:42 Dose: 180 mls/hr Documented By: RY Lactated Ringer's (Lactated Ringers) 1,000 mls @ 150 mls/hr IV CONT MIRANDA Last Admin: 11/13/24 06:22 Dose: 150 mls/hr Documented By: ABIMAEL Piperacillin Sod/Tazobactam (Sod 3.375 gm/ Sodium Chloride) 100 mls @ 25 mls/hr IV Q8H [facility] Last Admin: 11/13/24 08:24 Dose: Not Given Documented By: ANTONIO Thiamine HCl 100 mg/ Sodium (Chloride) 101 mls @ 404 mls/hr IV NOW ONE Stop: 11/13/24 06:32 Last Infusion: 11/13/24 07:23 Dose: Infused Documented By: Admin: 11/13/24 06:50 Dose: 404 mls/hr Documented By: ABIMAEL Piperacillin Sod/Tazobactam (Sod 3.375 gm/ Sodium Chloride) 100 mls @ 25 mls/hr IV Q8H [facility] Last Admin: 11/13/24 09:55 Dose: 25 mls/hr Documented By: ANTONIO Ondansetron HCl (Ondansetron 4 Mg/2 Ml Inj) 4 mg IV NOW PRN PRN Reason: Nausea And Vomiting Ondansetron HCl (Ondansetron 4 Mg Odt) 4 mg PO NOW PRN PRN Reason: Nausea And Vomiting Potassium Chloride (Potassium Chloride 20 Meq/15 Ml Udc) 40 meq PO NOW ONE Stop: 11/13/24 02:57 Last Admin: 11/13/24 03:41 Dose: 40 meq Documented By: RY Vital Signs Vital signs: Vital Signs - 8 hr 11/13/24 07:55 11/13/24 07:55 11/13/24 08:00 Temperature Pulse Rate 87 Respiratory Rate Blood Pressure 99/64 94/60 Pulse Oximetry 95 Oxygen Delivery Method Room Air 11/13/24 08:00 11/13/24 08:05 11/13/24 08:05 Temperature Pulse Rate 84 83 Respiratory Rate 24 24 Blood Pressure 92/59 L Pulse Oximetry 97 97 Oxygen Delivery Method Room Air 11/13/24 08:10 11/13/24 08:10 11/13/24 08:15 Temperature Pulse Rate 83 Respiratory Rate Blood Pressure 93/58 L 90/64 Pulse Oximetry 96 Oxygen Delivery Method 11/13/24 08:15 11/13/24 08:24 11/13/24 08:29 Temperature 98.5 F Pulse Rate 79 Respiratory Rate 22 25 H Blood Pressure Pulse Oximetry 96 94 Oxygen Delivery Method Room Air 11/13/24 08:30 11/13/24 08:30 11/13/24 08:45 Temperature Pulse Rate 81 Respiratory Rate 21 Blood Pressure 88/58 L 83/56 L Pulse Oximetry 95 Oxygen Delivery Method 11/13/24 08:45 11/13/24 08:57 11/13/24 08:57 Temperature Pulse Rate 76 59 L Respiratory Rate 20 20 Blood Pressure 109/70 Pulse Oximetry 95 98 Oxygen Delivery Method Room Air 11/13/24 09:00 11/13/24 09:00 11/13/24 09:05 Temperature Pulse Rate 70 84 Respiratory Rate 20 22 Blood Pressure 112/77 Pulse Oximetry 95 97 Oxygen Delivery Method 11/13/24 09:05 11/13/24 09:10 11/13/24 09:10 Temperature Pulse Rate 80 Respiratory Rate 23 Blood Pressure 115/75 111/68 Pulse Oximetry 96 Oxygen Delivery Method Room Air 11/13/24 09:15 11/13/24 09:15 11/13/24 09:20 Temperature Pulse Rate 80 Respiratory Rate 27 H Blood Pressure 106/60 108/78 Pulse Oximetry 95 Oxygen Delivery Method 11/13/24 09:20 11/13/24 09:25 11/13/24 09:25 Temperature Pulse Rate 78 75 Respiratory Rate 25 H 23 Blood Pressure 109/73 Pulse Oximetry 95 95 Oxygen Delivery Method 11/13/24 09:30 11/13/24 09:30 11/13/24 09:35 Temperature Pulse Rate 81 73 Respiratory Rate 23 20 Blood Pressure 90/68 Pulse Oximetry 95 95 Oxygen Delivery Method Room Air 11/13/24 09:35 11/13/24 09:40 11/13/24 09:40 Temperature Pulse Rate 79 Respiratory Rate 22 Blood Pressure 104/72 92/65 Pulse Oximetry 94 Oxygen Delivery Method 11/13/24 09:45 11/13/24 09:45 11/13/24 09:50 Temperature Pulse Rate 136 H Respiratory Rate 23 Blood Pressure 92/68 99/67 Pulse Oximetry 94 Oxygen Delivery Method 11/13/24 09:50 11/13/24 09:55 11/13/24 09:55 Temperature Pulse Rate 86 90 Respiratory Rate 24 Blood Pressure 94/63 Pulse Oximetry 96 95 Oxygen Delivery Method 11/13/24 10:00 11/13/24 10:00 Temperature Pulse Rate 94 H Respiratory Rate 25 H Blood Pressure 89/60 L Pulse Oximetry 96 Oxygen Delivery Method Room Air MDM - Nausea/Vomiting/Diarrhea <Presley Abdullahi MD - Last Filed: 11/13/24 16:01> Lab Data Attestation: I reviewed the patient's lab results. Lab results narrative: White blood cell count 68796, hemoglobin 12.2, platelets 160,000. BUN 22 with creatinine 2.45, glucose 103. Sodium 126 with low potassium 2.5, serum CO2 22. Total bilirubin 2.8, AST 155, ALT 47, alkaline phosphatase 213. Lipase 195 normal. 11/12/24 21:40 11/13/24 06:15 Labs: Lab Results 11/12/24 11/13/24 11/13/24 Range/Units 21:40 00:05 02:25 WBC 10.5 (4.5-11.0) X10^3/uL RBC 3.38 L (4.5-5.9) X10^6/uL Hgb 12.2 L (13.5-17.5) g/dL Hct 35.6 L (41-53) % MCV 105.4 H (80-100) fL MCH 36.2 H (26-34) PG MCHC 34.4 (30-36) % RDW 14.5 (11.6-14.8) % Plt Count 160 (150-400) X10^3/uL Neut % (Auto) 73.4 (50-75) % Lymph % (Auto) 16.4 L (25-40) % Isabella % (Auto) 8.9 (3-14) % Eos % (Auto) 0.5 L (2-4) % Baso % (Auto) 0.8 (0-2) % Neut # (Auto) 7700 H (6510-0839) /uL Lymph # (Auto) 1700 (5603-4522) /uL Isabella # (Auto) 900 (0-900) /uL Eos # (Auto) 100 (0-450) /uL Baso # (Auto) 100 (0-100) /uL Sodium 126 L 126 L (137-145) mmol/L Potassium 2.5 L* 2.5 L* (3.4-5.1) mmol/L Chloride 84 L 92 L (98-107) mmol/L Carbon Dioxide 22 23 (22-32) mmol/L BUN 22 H 20 (9-20) mg/dL Creatinine 2.45 H 1.98 H (0.66-1.25) mg/dL Estimated GFR 28 L 37 L (>60) mL/min BUN/Creatinine Ratio 9.0 10.1 (6-22) Glucose 103 90 (80-110) mg/dL Lactate 4.4 H* 3.5 H (0.7-2.1) mmol/L Calcium 7.3 L 6.1 L* (8.4-10.2) mg/dL Total Bilirubin 2.8 H (0.2-1.3) mg/dL AST 155 H (17-59) IU/L ALT 47 (<50) IU/L Alkaline Phosphatase 213 H (38-126) U/L Troponin I < 0.012 (0.01-0.034) ng/mL Total Protein 6.8 (6.3-8.2) g/dL Albumin 3.3 L (3.5-5.0) g/dL Globulin 3.5 (1.7-4.1) g/dL Albumin/Globulin Ratio 0.9 L (1.0-2.8) Lipase 195 (23-300) U/L 11/13/24 Range/Units 06:15 WBC (4.5-11.0) X10^3/uL RBC (4.5-5.9) X10^6/uL Hgb (13.5-17.5) g/dL Hct (41-53) % MCV (80-100) fL MCH (26-34) PG MCHC (30-36) % RDW (11.6-14.8) % Plt Count (150-400) X10^3/uL Neut % (Auto) (50-75) % Lymph % (Auto) (25-40) % Isabella % (Auto) (3-14) % Eos % (Auto) (2-4) % Baso % (Auto) (0-2) % Neut # (Auto) (9171-4440) /uL Lymph # (Auto) (4277-9596) /uL Isabella # (Auto) (0-900) /uL Eos # (Auto) (0-450) /uL Baso # (Auto) (0-100) /uL Sodium 127 L (137-145) mmol/L Potassium 3.5 (3.4-5.1) mmol/L Chloride 94 L (98-107) mmol/L Carbon Dioxide 21 L (22-32) mmol/L BUN 21 H (9-20) mg/dL Creatinine 1.91 H (0.66-1.25) mg/dL Estimated GFR 38 L (>60) mL/min BUN/Creatinine Ratio 11.0 (6-22) Glucose 91 (80-110) mg/dL Lactate 1.6 (0.7-2.1) mmol/L Calcium 6.5 L (8.4-10.2) mg/dL Total Bilirubin (0.2-1.3) mg/dL AST (17-59) IU/L ALT (<50) IU/L Alkaline Phosphatase (38-126) U/L Troponin I (0.01-0.034) ng/mL Total Protein (6.3-8.2) g/dL Albumin (3.5-5.0) g/dL Globulin (1.7-4.1) g/dL Albumin/Globulin Ratio (1.0-2.8) Lipase (23-300) U/L Imaging Data CT scan - abdomen/pelvis: Radiologist's Impression: [place] [address] CT Scan Report Signed Patient: Ridge Payan MR#: [id number] : 1960 Acct:[id number] Age/Sex: 64 / M Date of Service: 11/12/24 Loc: ED Accession Number: [id number] Procedure: CT abdomen pelvis wo con Ordering Provider: Presley Abdullahi MD PROCEDURE: CT ABDOMEN PELVIS WO CON INDICATIONS: low BP, inc Lactate, ?source infection TECHNIQUE: Axial sections were acquired from the lung bases to the pubic symphysis. Coronal and sagittal reformats were performed. For radiation dose reduction, the following was used: automated exposure control, adjustment of mA and/or kV according to patient size. COMPARISON: [facility], CT, CT ABDOMEN PELVIS W CON, 08/08/2024, 16:17. FINDINGS: Image quality: Diagnostic. Lower Chest: Heart size is enlarged, no pericardial effusion. 3 vessel coronary artery arthrosclerotic calcifications are seen. Small hiatal hernia. URINARY: Right Kidney: No stones or hydronephrosis. Right Ureter: No hydroureter. Left Kidney: Tiny 1-2 mm nonobstructing stones are are seen in left kidney. No hydronephrosis. Left Ureter: No hydroureter. Bladder: Normal wall thickness. No stones. ABDOMEN: Liver: Severe hepatic steatosis and heterogeneous density of right kidney is seen. Nodular liver contour is also noted. No definite discrete hepatic lesion is noted although evaluation is limited due to lack of IV contrast. Gallbladder: No radiopaque gallstones or wall thickening. Biliary ducts: No biliary dilation. Pancreas: No ductal dilation. Spleen: Size is within normal limits. Adrenal Glands: No adrenal nodules. Stomach and Bowel: Small hiatal hernia. 4.9 x 4.9 cm cystic structure is noted involving medial wall of duodenum likely represent a duodenal diverticulum. Other cystic neoplasm cannot be excluded. This has increased in size compared to 08/08/2024 study. There is no evidence of bowel obstruction. No small bowel wall thickening. Suggestion of diffuse colonic wall thickening concerning for infectious or inflammatory colitis. No discrete drainable abscess collection. Peritoneum: Large amount of ascites fluid is noted in abdomen and pelvis. No gross free air. Ventral Wall: No hernia. Abdominal Nodes: No enlarged retroperitoneal or mesenteric lymph nodes. Vessels: Aorta and inferior vena cava are normal in size. PELVIS: Pelvic Organs: Unremarkable. Pelvic Nodes: Unremarkable. Miscellaneous: No inguinal hernias are seen. Bones: No aggressive appearing bony lesions. No acute vertebral body compression fracture. IMPRESSION: 1. Finding is concerning for cirrhosis with moderate to large amount of ascites fluid. No gross peritoneal free air. Heterogeneous density of liver and severe hepatic steatosis. No definite hepatic lesion. 2. Diffuse colonic wall thickening concerning for infectious or inflammatory colitis. No abscess collection. 3. Interval increase in size of patient's known cystic area involving medial wall of duodenum which may represent duodenal diverticulum versus other cystic neoplasm. GI correlation is recommended. 4. Tiny nonobstructing stone seen in left kidney. No obstructing renal stones or hydronephrosis. Normal appearing urinary bladder. Dictated by: Marcelo Fontana M.D. on 11/12/2024 at 23:30 Approved by: Marcelo Fontana M.D. on 11/12/2024 at 23:41 Chest x-ray: Radiologist's Impression: [address] [address] XRay Report Signed Patient: Ridge Payan MR#: [id number] : 1960 Acct:[id number] Age/Sex: 64 / M Date of Service: 11/13/24 Loc: ED Accession Number: [id number] Procedure: XR chest 1V Ordering Provider: Presley Abdullahi MD PROCEDURE: XR CHEST 1V INDICATIONS: right IJCL placement TECHNIQUE: One view of the chest was acquired. COMPARISON: [facility], XR CHEST 1V, 08/16/2024, 20:27. FINDINGS: Surgical changes and devices: Right IJ central venous line in place. The tip terminates in the distal SVC. Lungs and pleura: Lungs are clear. No pleural effusions or pneumothorax. Mediastinum: Mediastinal contours appear normal. Heart size is normal. Bones and chest wall: No suspicious bony lesions. Nonunited distal left clavicle fracture. Overlying soft tissues appear unremarkable. IMPRESSION: Adequate placement of right IJ central venous line. Final interpretation is concordant with preliminary report. Dictated by: Eliana Moore M.D. on 11/13/2024 at 6:40 Approved by: Eliana Moore M.D. on 11/13/2024 at 6:42 Chest x-ray 2.: Radiologist's Impression: [place] [address] XRay Report Signed Patient: Ridge Payan MR#: [id number] : 1960 Acct:[id number] Age/Sex: 64 / M Date of Service: 11/13/24 Loc: ED Accession Number: [id number] Procedure: XR chest 1V Ordering Provider: Presley Abdullahi MD PROCEDURE: XR CHEST 1V INDICATIONS: possible line dislodged TECHNIQUE: One view of the chest was acquired. COMPARISON: [facility], XR CHEST 1V, 11/13/2024, 1:50. FINDINGS: Surgical changes and devices: Interval removal of recent right IJ central venous line. Lungs and pleura: Lungs are clear. No pleural effusions or pneumothorax. Mediastinum: Mediastinal contours appear normal. Heart size is normal. Bones and chest wall: No suspicious bony lesions. Nonunited left distal clavicle fracture. Overlying soft tissues appear unremarkable. IMPRESSION: No acute process following central venous line removal. Dictated by: Eliana Moore M.D. on 11/13/2024 at 6:43 Approved by: Eliana Moore M.D. on 11/13/2024 at 6:43 Chest x-ray 3.: Radiologist's Impression: Close Chest X-Ray (Signed) Eliana Moore - 11/13/24 Chest X-Ray (Signed) Eliana Moore - 11/13/24 Chest X-Ray (Signed) Eliana Moore - 11/13/24 Abdomen Ultrasound (Signed) Marcelo Fontana - 11/13/24 Abdomen/Pelvis CT (Signed) Marcelo Fontana - 11/12/24 Launch?Image [address] [address] XRay Report Signed Patient: Ridge Payan MR#: [id number] : 1960 Acct:[id number] Age/Sex: 64 / M Date of Service: 11/13/24 Loc: ED Accession Number: [id number] Procedure: XR chest 1V Ordering Provider: Presley Abdullahi MD PROCEDURE: XR CHEST 1V INDICATIONS: line placement TECHNIQUE: One view of the chest was acquired. COMPARISON: [facility], , XR CHEST 1V, 11/13/2024, 3:45. FINDINGS: Surgical changes and devices: Replacement of right IJ central venous line. The tip terminates at the distal SVC. Lungs and pleura: Lungs are clear. No pleural effusions or pneumothorax. Mediastinum: Mediastinal contours appear normal. Heart size is normal. Bones and chest wall: No suspicious bony lesions. Nonunited left distal clavicle fracture. Overlying soft tissues appear unremarkable. IMPRESSION: Adequate placement right IJ central venous line. Dictated by: Eliana Moore M.D. on 11/13/2024 at 6:44 Approved by: Eliana Moore M.D. on 11/13/2024 at 6:44 ECG Data Attestation: I personally reviewed and interpreted this ECG as follows: Interpretation: Sinus tachycardia with PACs, total ventricular rate 102. No obvious ST segment elevation changes. Significant movement artifact and wandering baseline. PA 170, QRS 84, QTC 398. 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 Low blood pressure, white blood cell count not elevated, lactate elevated however, IV fluids initiated. Renal function poor. CT abdomen and pelvis noncontrast study ordered. Increased lactate noted, IV fluids, blood culture sent, empiric IV ceftriaxone after blood cultures. GI panel requested, if stool specimen received. CT abdomen and pelvis noncontrast. Impressions: ?Finding is concerning for cirrhosis with moderate to large amount of ascites fluid. No gross peritoneal free air. Heterogeneous density of the liver and severe hepatic steatosis. No definite hepatic lesion. Diffuse colonic wall thickening concerning for infectious or inflammatory colitis. No abscess collection. Interval increase in size patient known cystic area involving the medial wall of the duodenum which may represent duodenal diverticulum versus other cystic neoplasm. GI correlation is recommended. Tiny nonobstructing stone in the left kidney. No obstructing renal stones or hydronephrosis. Normal-appearing urinary bladder. ? See radiology report. Case discussed with on-call surgery Dr. Ring, advises transfer to [facility] where he was supposed to see gastroenterology. Ultrasound attempt to sandra spot for diagnostic paracentesis, sono [employer] did not feel that there was an adequate location to attempt paracentesis. See radiology report, similar interpretation. Systolic blood pressure 83 decreased despite IV fluids, will start peripheral line norepinephrine, switch to central access, verbal consent for central line placement. Right IJV triple-lumen catheter placed with bedside US, single attempt, advanced to depth 14 cm at skin, sutured in place, overlying sterile dressing and Tegaderm placed, ports flushed. Postprocedure chest x-ray shows good tip position above right atrium, no pneumothorax. Nursing to transition peripheral norepinephrine pressor to central access. Titrate norepinephrine to MAP>65. Repeat potassium also 2.5 unchanged after IV repletion and IVF boluses, likely dilutional with no significant change. Will repeat IV potassium, and also give oral potassium. IV calcium also given for low calcium level noted. Possible transfer to [facility] where he is reportedly awaiting outpatient GI consultation for duodenal mass. Await call back from [facility]. Patient managed to pull out his right-sided central line, verbal consent for new central line, see separate new procedure note addendum, right IJ triple-lumen placed with bedside guidance, secured with suturing securing device and 2nd securing device, and overlying dressing. New postprocedure chest x-ray shows right IJ catheter again in place, above right atrium, no pneumothorax. Ports aspirated, resumed norepinephrine. Awaiting call back from [facility]. 0500, ROLAND reports still awaiting call back from [facility] and many other systems, there might be a call back from [facility]. Will repeat labs at 6:00 a.m., to include CBC and CMP. Ordered scheduled dosing Zosyn 3.375 g IV q6 hour, to start 6h after initial 4.5g loading dose. Currently still on norepinephrine pressor support through central line. IV fluid given prior, maintenance IV fluid infusing as well. 0600, patient weaned off of norepinephrine with goal map greater than 65, last blood pressure 88/60 with MAP 69. Interval mild improvement renal functions, potassium level improving. History of alcohol use ongoing, no s/sx withdrawal so far. 629, case discussed with [facility] branch examiner Dr. Lagos, requests IV thiamine, accepts patient for admission to their ICU. 11/13/2024 Dr. Cabrera 0773: Patient is seen and evaluated by myself as well blood pressure is right at the edge with a map of 64 systolic of 84/61 patient is alert. We will restart pressors as needed as continuing with maintenance fluids patient's other medications have completed. Patient appears to have an MARLON although improving multiple electrolyte abnormalities potassium is improved with replacement. calcium slightly improved sodium is 127. ETOH is 44 last night. Patient had pulled out his central line last night was replaced by Dr. Abdullahi repeat chest x-ray shows adequate placement with no pneumothorax. Plan for transport at 10:30 a.m. this morning patient is accepted at [facility]. Repeat EKG shows sinus rhythm rate of 76 PA 162 QRS 80 QTC of 477, no acute ST changes appreciated. Nonspecific change. Nursing was giving report and asked me to speak with ICU branch examiner. Apparently their CT is down potentially for 2-3 days they asked if we can obtain a head CT before patient was transferred as he has been mildly confused about the date. Had agreed but had not realized patient had already left the department and been on the road for 10-15 minutes. We did re-contact the facility to let them know. <Smitha Cabrera, DO - Last Filed: 11/13/24 12:35> Lab Data Labs: Lab Results 11/12/24 11/13/24 11/13/24 Range/Units 21:40 00:05 02:25 WBC 10.5 (4.5-11.0) X10^3/uL RBC 3.38 L (4.5-5.9) X10^6/uL Hgb 12.2 L (13.5-17.5) g/dL Hct 35.6 L (41-53) % MCV 105.4 H (80-100) fL MCH 36.2 H (26-34) PG MCHC 34.4 (30-36) % RDW 14.5 (11.6-14.8) % Plt Count 160 (150-400) X10^3/uL Neut % (Auto) 73.4 (50-75) % Lymph % (Auto) 16.4 L (25-40) % Isabella % (Auto) 8.9 (3-14) % Eos % (Auto) 0.5 L (2-4) % Baso % (Auto) 0.8 (0-2) % Neut # (Auto) 7700 H (4001-1280) /uL Lymph # (Auto) 1700 (1014-5409) /uL Isabella # (Auto) 900 (0-900) /uL Eos # (Auto) 100 (0-450) /uL Baso # (Auto) 100 (0-100) /uL Sodium 126 L 126 L (137-145) mmol/L Potassium 2.5 L* 2.5 L* (3.4-5.1) mmol/L Chloride 84 L 92 L (98-107) mmol/L Carbon Dioxide 22 23 (22-32) mmol/L BUN 22 H 20 (9-20) mg/dL Creatinine 2.45 H 1.98 H (0.66-1.25) mg/dL Estimated GFR 28 L 37 L (>60) mL/min BUN/Creatinine Ratio 9.0 10.1 (6-22) Glucose 103 90 (80-110) mg/dL Lactate 4.4 H* 3.5 H (0.7-2.1) mmol/L Calcium 7.3 L 6.1 L* (8.4-10.2) mg/dL Total Bilirubin 2.8 H (0.2-1.3) mg/dL AST 155 H (17-59) IU/L ALT 47 (<50) IU/L Alkaline Phosphatase 213 H (38-126) U/L Troponin I < 0.012 (0.01-0.034) ng/mL Total Protein 6.8 (6.3-8.2) g/dL Albumin 3.3 L (3.5-5.0) g/dL Globulin 3.5 (1.7-4.1) g/dL Albumin/Globulin Ratio 0.9 L (1.0-2.8) Lipase 195 (23-300) U/L 11/13/24 Range/Units 06:15 WBC (4.5-11.0) X10^3/uL RBC (4.5-5.9) X10^6/uL Hgb (13.5-17.5) g/dL Hct (41-53) % MCV (80-100) fL MCH (26-34) PG MCHC (30-36) % RDW (11.6-14.8) % Plt Count (150-400) X10^3/uL Neut % (Auto) (50-75) % Lymph % (Auto) (25-40) % Isabella % (Auto) (3-14) % Eos % (Auto) (2-4) % Baso % (Auto) (0-2) % Neut # (Auto) (8808-1716) /uL Lymph # (Auto) (0240-0080) /uL Isabella # (Auto) (0-900) /uL Eos # (Auto) (0-450) /uL Baso # (Auto) (0-100) /uL Sodium 127 L (137-145) mmol/L Potassium 3.5 (3.4-5.1) mmol/L Chloride 94 L (98-107) mmol/L Carbon Dioxide 21 L (22-32) mmol/L BUN 21 H (9-20) mg/dL Creatinine 1.91 H (0.66-1.25) mg/dL Estimated GFR 38 L (>60) mL/min BUN/Creatinine Ratio 11.0 (6-22) Glucose 91 (80-110) mg/dL Lactate 1.6 (0.7-2.1) mmol/L Calcium 6.5 L (8.4-10.2) mg/dL Total Bilirubin (0.2-1.3) mg/dL AST (17-59) IU/L ALT (<50) IU/L Alkaline Phosphatase (38-126) U/L Troponin I (0.01-0.034) ng/mL Total Protein (6.3-8.2) g/dL Albumin (3.5-5.0) g/dL Globulin (1.7-4.1) g/dL Albumin/Globulin Ratio (1.0-2.8) Lipase (23-300) U/L MDM Narrative Medical decision making narrative: 64-year-old male with recent diarrhea, abdominal discomfort, 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 Low blood pressure, white blood cell count not elevated, lactate elevated however, IV fluids initiated. Renal function poor. CT abdomen and pelvis noncontrast study ordered. Increased lactate noted, IV fluids, blood culture sent, empiric IV ceftriaxone after blood cultures. GI panel requested, if stool specimen received. CT abdomen and pelvis noncontrast. Impressions: ?Finding is concerning for cirrhosis with moderate to large amount of ascites fluid. No gross peritoneal free air. Heterogeneous density of the liver and severe hepatic steatosis. No definite hepatic lesion. Diffuse colonic wall thickening concerning for infectious or inflammatory colitis. No abscess collection. Interval increase in size patient known cystic area involving the medial wall of the duodenum which may represent duodenal diverticulum versus other cystic neoplasm. GI correlation is recommended. Tiny nonobstructing stone in the left kidney. No obstructing renal stones or hydronephrosis. Normal-appearing urinary bladder. ? See radiology report. Case discussed with on-call surgery Dr. Ring, advises transfer to [facility] where he was supposed to be seeing gastroenterology. Ultrasound attempt to sandra spot for diagnostic paracentesis, [employer] did not feel that there was an adequate location to attempt paracentesis. See radiology report, similar interpretation. Systolic blood pressure 83 decreased despite IV fluids, we will start peripheral line norepinephrine, switch to central access, verbal consent for central line placement. Right IJV triple-lumen catheter placed with bedside US, single attempt, advanced to depth 14 cm at skin, sutured in place, overlying sterile dressing and Tegaderm placed, ports flushed. Postprocedure chest x-ray shows good tip position above right atrium, no pneumothorax. Nursing to transition peripheral norepinephrine pressor to central access. Titrate norepinephrine to MAP>65. Repeat potassium also 2.5 unchanged after IV repletion and IVF boluses, likely delusional no significant change. Will repeat IV potassium, and also give oral potassium. IV calcium also given for low calcium level noted. Possible transfer to [facility] where he is reportedly awaiting outpatient GI consultation for duodenal mass. Await call back from [facility]. Patient managed to pull out his right-sided central line, verbal consent for new right IJ central line, see separate new procedure note addendum, right IJ triple-lumen placed with bedside guidance, secured with suturing securing device and 2nd securing device, and overlying dressing. Ports aspirate, resumed norepinephrine. New postprocedure chest x-ray shows right IJ catheter again in place, above right atrium, no pneumothorax. Awaiting call back from [facility]. 0500, EVIDENCE TECHNICIAN reports still awaiting call back from [facility] and many other systems, there might be a call back from [facility]. We will repeat labs at 6:00 a.m., to include CBC and CMP. Ordered scheduled dosing Zosyn 3.375 g IV q6 hour, to start 6h after initial 4.5g loading dose. Currently still on norepinephrine pressor support through central line. IV fluid given prior, maintenance IV fluid infusing as well. 0600, patient weaned off of norepinephrine with goal map greater than 65, last blood pressure 88/60 with MAP 69. 0630, case discussed with [facility] branch examiner Dr. Lagos, requests IV thiamine, accepts patient for admission to their ICU. 11/13/2024 Dr. Cabrera 5066: Patient is seen and evaluated by myself as well blood pressure is right at the edge with a map of 64 systolic of 84/61 patient is alert. We will restart pressors as needed as continuing with maintenance fluids patient's other medications have completed. Patient appears to have an MARLON although improving multiple electrolyte abnormalities potassium is improved with replacement. calcium slightly improved sodium is 127. ETOH is 44 last night. Patient had pulled out his central line last night was replaced by Dr. Abdullahi repeat chest x-ray shows adequate placement with no pneumothorax. Plan for transport at 10:30 a.m. this morning patient is accepted at [facility]. Repeat EKG shows sinus rhythm rate of 76 PA 162 QRS 80 QTC of 477, no acute ST changes appreciated. Nonspecific change. Nursing was giving report and asked me to speak with ICU branch examiner. Apparently their CT is down potentially for 2-3 days they asked if we can obtain a head CT before patient was transferred as he has been mildly confused about the date. Had agreed but had not realized patient had already left the department and been on the road for 10-15 minutes. We did re-contact the facility to let them know. Critical Care Time <Presley Abdullahi MD - Last Filed: 11/13/24 16:01> Critical Care Time Critical Care Time: Yes Total Critical Care Time: 45 Attestation: The high probability of a clinically significant, sudden or life threatening deterioration of the [cardiopulmonary, gastrointestinal abdominopelvic] system(s) required my full and direct attention, intervention and personal management. The aggregate critical care time was [45] minutes. This time is in addition to time spent performing reported procedures but includes the following: [x] Data Review and interpretation [x] Patient assessment and monitoring of vital signs [x] Documentation [x] Medication orders and management Discharge Plan Departure Patient Disposition: [facility] Clinical Impression: Diarrhea, Duodenal mass, Ascites, Cirrhosis of liver, Colitis, MARLON (acute kidney injury), Hypokalemia, Hypocalcemia, Septic shock Prescriptions: No Action acetaminophen 325 mg Tablet 650 mg PO Q6H PRN (Reason: Fever/Mild Pain (1-3)) Qty: 30 0RF aspirin 81 mg Tablet,Delayed Release (Dr/Ec) 81 mg PO DAILY Qty: 30 0RF famotidine [Pepcid AC] 20 mg Tablet 20 mg PO BID Qty: 60 0RF folic acid 1 mg Tablet 1 mg PO DAILY Qty: 25 0RF metoprolol succinate 25 mg Tablet Extended Release 24 Hr 12.5 mg PO DAILY Qty: 15 0RF multivitamin with folic acid [Tab-A-Charlene] 400 mcg Tablet 1 tab PO DAILY Qty: 30 0RF nicotine 21 mg/24 hr Patch 24 Hour 21 mg topical DAILY Qty: 14 0RF thiamine mononitrate (vit B1) 100 mg Tablet 100 mg PO DAILY Qty: 30 0RF sulfamethoxazole-trimethoprim 800-160 mg tablet 1 tab PO Q12H Qty: 14 0RF furosemide [Lasix] 20 mg tablet 20 mg PO DAILY Qty: 14 0RF Referrals: Kari Kaufman, JUDGE'S CLERK-C [Primary Care Provider] - Stand Alone Forms: Patient Portal/API/Survey
[2024-11-12] MEDS: cefTRIAXone 1,000 MG in SODIUM CHLORIDE 0.9% 100 ML 200 MG IV (23:20)
[2024-11-12 23:22] LABS: Reflexed Lactate in 2 Hours Y
[2024-11-12 23:40] LABS: Troponin I < 0.012 ng/mL (0.01-0.034)
[2024-11-13] VITALS (65 sets, daily range): BP systolic 76–115; BP diastolic 48–78; PULSE 59–233; RESP 13–30; TEMP 36.9; O2SAT 94–99
--- NOTE | 2024-11-13 | DI.US.S_ITS ---
PROCEDURE: US ABDOMEN LIMITED INDICATIONS: ASCITIES TECHNIQUE: Real-time focused scanning was performed of the abdomen, with image documentation. COMPARISON: [facility], CT, CT ABDOMEN PELVIS WO CON, 11/12/2024, 23:12. [facility], US, US ABDOMEN LIMITED, 06/01/2023, 8:12. FINDINGS: Examination of all 4 quadrants shows small amount of ascites fluid. No large pocket for safe ultrasound-guided paracentesis. IMPRESSION: Small amount of ascites fluid without large pocket for safe ultrasound-guided paracentesis. Dictated by: Marcelo Fontana M.D. on 11/13/2024 at 0:51 Approved by: Marcelo Fontana M.D. on 11/13/2024 at 0:53
[2024-11-13] MEDS: POTASSIUM CHLORIDE IN WATER 10 MEQ/100 ML PIGGYBACK 100 MEQ IV ×4 (00:13→05:22)
[2024-11-13 01:01] LABS: Lactate 2HR (Lactic Acid Rflx) 3.5 mmol/L (0.7-2.1)
[2024-11-13] MEDS: SODIUM CHLORIDE 0.9% 1,000 ML 1000 ML IV (01:10)
--- NOTE | 2024-11-13 01:55 | DI.RAD.S_ITS ---
PROCEDURE: XR CHEST 1V INDICATIONS: right IJCL placement TECHNIQUE: One view of the chest was acquired. COMPARISON: [facility], , XR CHEST 1V, 08/16/2024, 20:27. FINDINGS: Surgical changes and devices: Right IJ central venous line in place. The tip terminates in the distal SVC. Lungs and pleura: Lungs are clear. No pleural effusions or pneumothorax. Mediastinum: Mediastinal contours appear normal. Heart size is normal. Bones and chest wall: No suspicious bony lesions. Nonunited distal left clavicle fracture. Overlying soft tissues appear unremarkable. IMPRESSION: Adequate placement of right IJ central venous line. Final interpretation is concordant with preliminary report. Dictated by: Eliana Moore M.D. on 11/13/2024 at 6:40 Approved by: Eliana Moore M.D. on 11/13/2024 at 6:42
[2024-11-13] MEDS: PIPERACILLIN/TAZO 4.5 GM in SODIUM CHLORIDE 0.9% 100 ML IV (02:29)
[2024-11-13] MEDS: NOREPINEPHRINE BITARTRATE/D5W 4 MG/250 ML PLAST..BAG 24.834 MG IV (02:32)
[2024-11-13 02:42] LABS: BUN Creatinine Ratio 10.1 (6-22); Blood Urea Nitrogen 20 mg/dL (9-20); Carbon Dioxide 23 mmol/L (22-32); Chloride 92 mmol/L (98-107); Estimated Glomerular Filt Rate 37 mL/min (>60); Glucose 90 mg/dL (80-110); HEMOLYSIS < 15 (0-50); Sodium 126 mmol/L (137-145)
[2024-11-13 02:44] LABS: Potassium 2.5 mmol/L (3.4-5.1)
[2024-11-13 02:45] LABS: Calcium 6.1 mg/dL (8.4-10.2)
[2024-11-13] MEDS: POTASSIUM CHLORIDE 20 MEQ/15 ML UDC 40 MEQ PO (03:41)
[2024-11-13] MEDS: CALCIUM GLUCONATE 4.65 MEQ in SODIUM CHLORIDE 0.9% 50 ML 180 MEQ IV (03:42)
--- NOTE | 2024-11-13 03:51 | DI.RAD.S_ITS ---
PROCEDURE: XR CHEST 1V INDICATIONS: possible line dislodged TECHNIQUE: One view of the chest was acquired. COMPARISON: [facility], , XR CHEST 1V, 11/13/2024, 1:50. FINDINGS: Surgical changes and devices: Interval removal of recent right IJ central venous line. Lungs and pleura: Lungs are clear. No pleural effusions or pneumothorax. Mediastinum: Mediastinal contours appear normal. Heart size is normal. Bones and chest wall: No suspicious bony lesions. Nonunited left distal clavicle fracture. Overlying soft tissues appear unremarkable. IMPRESSION: No acute process following central venous line removal. Dictated by: Eliana Moore M.D. on 11/13/2024 at 6:43 Approved by: Eliana Moore M.D. on 11/13/2024 at 6:43
--- NOTE | 2024-11-13 03:59 | PC.NURSE ---
triple lumen dc per Dr Abdullahi, after cxr confirming that it had been dislodged
--- NOTE | 2024-11-13 04:21 | DI.RAD.S_ITS ---
PROCEDURE: XR CHEST 1V INDICATIONS: line placement TECHNIQUE: One view of the chest was acquired. COMPARISON: [facility], CR, XR CHEST 1V, 11/13/2024, 3:45. FINDINGS: Surgical changes and devices: Replacement of right IJ central venous line. The tip terminates at the distal SVC. Lungs and pleura: Lungs are clear. No pleural effusions or pneumothorax. Mediastinum: Mediastinal contours appear normal. Heart size is normal. Bones and chest wall: No suspicious bony lesions. Nonunited left distal clavicle fracture. Overlying soft tissues appear unremarkable. IMPRESSION: Adequate placement right IJ central venous line. Dictated by: Eliana Moore M.D. on 11/13/2024 at 6:44 Approved by: Eliana Moore M.D. on 11/13/2024 at 6:44
[2024-11-13] MEDS: LACTATED RINGERS 1,000 ML 150 ML IV (06:22)
[2024-11-13] MEDS: THIAMINE 100 MG in SODIUM CHLORIDE 0.9% 100 ML 404 MG IV (06:50)
[2024-11-13 06:55] LABS: Lactate (Lactic Acid) 1.6 mmol/L (0.7-2.1)
[2024-11-13 06:56] LABS: Blood Urea Nitrogen 21 mg/dL (9-20); Calcium 6.5 mg/dL (8.4-10.2); Chloride 94 mmol/L (98-107); Estimated Glomerular Filt Rate 38 mL/min (>60); Glucose 91 mg/dL (80-110); Potassium 3.5 mmol/L (3.4-5.1); Sodium 127 mmol/L (137-145)
[2024-11-13 06:57] LABS: Carbon Dioxide 21 mmol/L (22-32); HEMOLYSIS 29 (0-50)
--- NOTE | 2024-11-13 07:24 | PC.NURSE ---
pt continues to rest on stretcher, Dr Abdullahi in to discuss transfer with pt
--- NOTE | 2024-11-13 07:58 | PC.NURSE ---
Pt oriented to location and self, does not know the year or date. I told patient to be careful with his IV placement in his right neck and left forearm, telling him that he pulled out his previous IV's. Pt responds Oh, really? I dont remember that. Pt denies nausea. No SOB. No dizziness. Upon changing pt's brief he has skin breakdown to posterior, red, tender skin. Cleansed pt and applied barrier cream. Pt able to reposition in bed with minimal assistance.
--- NOTE | 2024-11-13 08:00 | PC.NURSE ---
Dr. Caberra at bedside to update patient and check on his Right IJ which has slight swelling. Pt denies having pain at site. Swelling has not increased with IV fluids administering. Dr. Cabrera states to reinitiate norepinephrine if pt becomes symptomatic of hypotension, or if MAP < 65.
--- NOTE | 2024-11-13 09:11 | EKG_ITS ---
[address] [address] Test Date: 2024-11-13 Pat Name: Ridge Payan Department: [facility] Room: Gender: Male Autotransfusionist: DARRYL : 1960 Requested By: Order Number: [id number] Reading MD: Chaim Foster Measurements Intervals [place] Rate: 76 P: 66 PA: 162 QRS: -28 QRSD: 80 T: 95 QT: 424 QTc: 477 Interpretive Statements Normal sinus rhythm Low voltage QRS Septal infarct , age undetermined T wave abnormality, consider anterior ischemia Electronically Signed On 11-15-2024 8:42:51 PDT by Chaim Foster
--- NOTE | 2024-11-13 09:41 | PC.NURSE ---
[facility] ambulance called for ALS transport @ [address] ETA [address]30 [place] ICU Rm 32 Dr. Lagos accepting Nurse Report #[phone]
--- NOTE | 2024-11-13 09:53 | PC.NURSE ---
Transfer Packet and DI disc (In folder) handed off to [facility] crew at 0943.
[2024-11-13] MEDS: PIPERACILLIN/TAZO 3.375 GM in SODIUM CHLORIDE 0.9% 100 ML IV (09:55)
--- NOTE | 2024-11-13 10:28 | PC.NURSE ---
While giving report to [employer] Reta, retail loan officer requested to talk to ER provider Dr. Cabrera. I placed Stephania (retail loan officer) on hold and updated Dr. Cabrera. Pt had already left with [facility] and retail loan officer requested a head CT to Dr. Cabrera. I called back to Reta (RN) at [place] and updated her that we are unable to obtain head CT due to patient being en route by EMS. I provided our phone number to them if their retail loan officer needed to call back to talk to Dr. Cabrera. Reta denied having further questions.
[2024-11-14 22:53] LABS: Enterococcus faecalis Not Detected (Not Detect); Enterococcus faecium Not Detected (Not Detect); Listeria monocytogenes Not Detected (Not Detect); mecA/C Resistance Not Detected (Not Detect)
[2024-11-14 22:54] LABS: Acinetobacter calcoa-baumannii Not Detected (Not Detect); Bacteroides fragilis Not Detected (Not Detect); Candida albicans Not Detected (Not Detect); Candida auris Not Detected (Not Detect); Candida glabrata Not Detected (Not Detect); Candida krusei Not Detected (Not Detect); Candida parapsilosis Not Detected (Not Detect); Candida tropicalis Not Detected (Not Detect); Cryptococcus neoformans/gatti Not Detected (Not Detect); Enterobacter cloacae complex Not Detected (Not Detect); Enterobacterales Not Detected (Not Detect); Haemophilus influenzae Not Detected (Not Detect); Klebsiella aerogenes Not Detected (Not Detect); Neisseria meningitidis Not Detected (Not Detect); Proteus species Not Detected (Not Detect); Pseudomonas aeruginosa Not Detected (Not Detect); Salmonella species Not Detected (Not Detect); Serratia marcescens Not Detected (Not Detect); Staphylococcus epidermidis Detected (Not Detect); Staphylococcus lugdunensis Not Detected (Not Detect); Staphylococcus species Detected (Not Detect); Stenotrophomonas maltophilia Not Detected (Not Detect); Streptococcus agalactiae (Gr B Not Detected (Not Detect); Streptococcus pneumonia Not Detected (Not Detect); Streptococcus pyogenes (Gr A) Not Detected (Not Detect); Streptococcus species Not Detected (Not Detect)
== END 2024-11-13 10:15 | disposition short-term general hospital (02) ==
PROVIDERS: Emergency Medicine; Emergency Provider Emergency Medicine; Family Provider Nurse Practitioner Family; PCP Nurse Practitioner Family
DX: K74.60 Unspecified cirrhosis of liver (principal); N17.9 Acute kidney failure, unspecified; E87.6 Hypokalemia; E83.51 Hypocalcemia; R65.21 Severe sepsis with septic shock; K52.9 Noninfective gastroenteritis and colitis, unspecified; K31.89 Other diseases of stomach and duodenum; R00.0 Tachycardia, unspecified; F10.90 Alcohol use, unspecified, uncomplicated; R53.1 Weakness; F17.210 Nicotine dependence, cigarettes, uncomplicated
CPT/HCPCS: 36415; 36556; 36580; 71045; 74176; 76705; 80048; 80053; 83605; 83690; 84484; 85025; 87040; 87077; 87154; 93005; 96365; 96366; 96367; 99284; 99291; J0612; J0696; J2543